=== PATIENT | female | born 1960 | race Caucasian/White ===

== ENCOUNTER → 2017-04-28 | Outpatient (CLI) | payer BC ==
[2017-04-28 17:58] LABS: ALT/SGPT 49 U/L (12-78); BLOOD UREA NITROGEN 10 mg/dl (7-18); BUN/CREATININE RATIO 12.9 (10-20); C-REACTIVE PROTEIN 1.98 mg/dl (0-0.29); CALCIUM 9.3 mg/dl (8.5-10.1); CARBON DIOXIDE 28 mmol/L (21-32); CHLORIDE 106 mmol/L (98-107); CHOLESTEROL 187 mg/dl (0-200); CREATININE 0.78 mg/dl (0.60-1.20); GLUCOSE 91 mg/dl (70-99); POTASSIUM 3.8 mmol/L (3.5-5.1); SODIUM 139 mmol/L (136-145); TRIGLYCERIDES 67 mg/dl (0-150); VERY LOW DENSITY LIPOPROT CALC 13 mg/dl
[2017-04-28 18:07] LABS: ALB/GLOB RATIO 0.7 (0.9-2); ALKALINE PHOSPHATASE 69 U/L (45-117); AST/SGOT 53 U/L (15-37); CHOLESTEROL/HDL RATIO 3.1; HDL CHOLESTEROL 60 mg/dl; LDL CHOLESTEROL CALCULATED 114 mg/dl; RHEUMATOID FACTOR < 10.0 U/mL (0-15)
== END | disposition home or self-care (01) ==
LOC: C.LABPBG 12:41
PROVIDERS: ATTEND Nurse Practitioner Adult Health
DX: R94.6 Abnormal results of thyroid function studies (principal); M19.90 Unspecified osteoarthritis, unspecified site; E11.9 Type 2 diabetes mellitus without complications

== ENCOUNTER → 2017-05-22 | Outpatient (CLI) | payer BC ==
[2017-05-23 08:13] LABS: ESTIMATED AVERAGE GLUCOSE 100 mg/dl; HA1C FLAG Normal (Normal)
[2017-06-02 13:24] LABS: ANTI-SS-A <1.0 NEG AI (<1.0 NEG); ANTI-SS-B <1.0 NEG AI (<1.0 NEG); DRVVT MIX INTERPRETAION Not Indicated; LAC PTT SCREEN 48 sec (<=40); MICROSOMAL AB 2 IU/ML (<9)
[2017-06-03 12:53] LABS: LUPUS ANTICOAGULANT** TC36573X Negative (Negative)
== END | disposition home or self-care (01) ==
LOC: C.LAB 12:33
PROVIDERS: ATTEND Family Medicine
DX: E11.9 Type 2 diabetes mellitus without complications (principal); R74.0 Nonspecific elevation of levels of transaminase and lactic acid dehydrogenase [LDH]; R76.8 Other specified abnormal immunological findings in serum; E55.9 Vitamin D deficiency, unspecified

== ENCOUNTER → 2017-10-20 | Outpatient (CLI) | payer BC ==
[2017-10-20 19:12] LABS: ALBUMIN 3.1 gm/dl (3.4-5.0); ALT/SGPT 75 U/L (12-78); AST/SGOT 231 U/L (15-37); BLOOD UREA NITROGEN 10 mg/dl (7-18); CALCIUM 9.4 mg/dl (8.5-10.1); CARBON DIOXIDE 28 mmol/L (21-32); CREATININE 0.75 mg/dl (0.60-1.20); GLUCOSE 96 mg/dl (70-99); SODIUM 136 mmol/L (136-145)
[2017-10-20 19:25] LABS: ALKALINE PHOSPHATASE 66 U/L (45-117); CHOLESTEROL 139 mg/dl (0-200); LDL CHOLESTEROL CALCULATED 82 mg/dl; TOTAL PROTEIN 7.9 gm/dl (6.4-8.2)
[2017-10-21 07:22] LABS: HEMOGLOBIN A1C 5.3 % (4.5-5.6)
== END | disposition home or self-care (01) ==
LOC: C.LABPBG 14:03
PROVIDERS: ATTEND Family Medicine
DX: E11.9 Type 2 diabetes mellitus without complications (principal); E78.5 Hyperlipidemia, unspecified

== ENCOUNTER → 2017-10-21 | Outpatient (CLI) | payer BC | END | disposition home or self-care (01) | LOC: C.LABSPEC 09:38 | PROVIDERS: ATTEND Family Medicine | DX: E11.9 Type 2 diabetes mellitus without complications (principal); E78.5 Hyperlipidemia, unspecified ==

== ENCOUNTER → 2017-11-23 | Outpatient (CLI) | payer BC | END | disposition home or self-care (01) | LOC: C.LABPBG 09:15 | PROVIDERS: ATTEND Family Medicine | DX: Z11.59 Encounter for screening for other viral diseases (principal) ==

== ENCOUNTER → 2017-11-27 | Outpatient (CLI) | payer BC ==
--- NOTE | 2017-11-27 08:27 | DIAGNOSTIC IMAGING REPORT ---
ABDOMEN LIMITED (US) HISTORY: Abnormal liver enzymes ELEVATED AST (SGOT). COMPARISON: None. FINDINGS: Pancreas: The pancreas demonstrates a normal echotexture. Liver: Unremarkable. Gallbladder: Contracted gallbladder with multiple gallstones. CBD: 4 mm Right kidney: No hydronephrosis. IMPRESSION: Contracted gallbladder with multiple gallstones. Normal caliber bile duct. The above report was generated using voice recognition software. It may contain grammatical, syntax or spelling errors. Electronically signed by: Brando Nieto M.D. 11/27/2017 8:26 AM Dictated Date/Time: 11/27/2017 8:24 AM
== END | disposition home or self-care (01) ==
LOC: C.ULTR 07:46
PROVIDERS: ATTEND Family Medicine
DX: R74.0 Nonspecific elevation of levels of transaminase and lactic acid dehydrogenase [LDH] (principal)

== ENCOUNTER → 2018-02-05 | Outpatient (CLI) | payer BC ==
[~2018-02-05] MED LIST: CHOL2000 PO; CLBPO15 TOP; GLC/500 PO; IBUP-1459 PO; nicotine patch
[2018-02-05 16:41] LABS: MEAN CORPUSCULAR HGB CONC 34.3 g/dl (32-36)
[2018-02-05 16:47] LABS: HEMATOCRIT 40.5 % (37-47); HEMOGLOBIN 13.9 g/dL (12.0-16.0); MEAN CELL VOLUME 96.7 fL (80-100); MEAN CORPUSCULAR HEMOGLOBIN 33.2 pg (25-34); RED CELL DISTRIBUTION WIDTH CV 15.1 % (11.5-14.5); RED CELL DISTRIBUTION WIDTH SD 53.2 fL (36.4-46.3); WHITE BLOOD COUNT 3.87 K/uL (4.8-10.8)
[2018-02-05 17:03] LABS: PLATELET COUNT 32 K/uL (130-400)
[2018-02-05 17:04] LABS: BASO % 0.3 %; BASO ABS # 0.01 K/uL (0-0.2); EOS % 2.3 %; EOS ABS # 0.09 K/uL (0-0.5); LYMPH % 34.9 %; LYMPH ABS # 1.35 K/uL (1.2-3.4); MONO ABS # 0.35 K/uL (0.11-0.59); NEUT % 53.5 %; NEUT ABS # 2.07 K/uL (1.4-6.5)
== END | disposition home or self-care (01) ==
LOC: C.LABPBG 11:42
PROVIDERS: ATTEND Surgery
DX: Z01.812 Encounter for preprocedural laboratory examination (principal)

== ENCOUNTER 2022-04-09 15:56 | Inpatient (IN) ==
[2022-04-09] MEDS ORDERED: SODIUM CHLORIDE 0.9% 250 ML IV PRN ×2 (17:43→22:00)
[2022-04-09] MEDS ORDERED: PANTOprazole 80 MG in DEXTROSE 5% 100 ML IV ONE (17:46)
[2022-04-09] MEDS ORDERED: PANTOPRAZOLE BOLUS/DRIP 1 EACH IV STA (17:46)
[2022-04-09] MEDS ORDERED: cefTRIAXone SODIUM 2,000 MG/70 ML BAG IV STA (17:46)
--- NOTE | 2022-04-09 17:49 | Emergency Department Note ---
Impression & Plan Liver cirrhosis secondary to nonalcoholic steatohepatitis (LOUIS), Upper GI bleed, Hypotension, Pancreatic cancer, SACHA (acute kidney injury), Leukopenia, Elevated troponin, Anasarca, Acute respiratory failure with hypoxia ED Provider Note NAME: KARYN GARZON AGE: 62 SEX: F : 1960 ARRIVES VIA: Ambulance INFORMANT: Patient ED PROVIDER(S): Mohsen Wong DO CHIEF COMPLAINT: swelling HPI: Patient is a 62-year-old female with a past medical history of Louis, positive JULIAN, thrombocytopenia, diabetes, and pancreatic cancer, portal venous thrombus on Lovenox, who presents to the ER for diffuse swelling throughout her entire body. She denies any headache or change in vision. No chest pain or shortness of breath. No nausea, vomiting, or diarrhea. She admits to black tarry stools for the past 24 to 48 hours. No dysuria, urgency, or frequency. No other exacerbating or remitting factors. She believes that everything deteriorated over the past 24 to 48 hours. She notes that she is a full code. ROS: See above HPI for pertinent positives & negatives. A total of 10 systems reviewed and were otherwise negative. PAST MEDICAL HISTORY:See Below PAST SURGICAL HISTORY:See Below FAMILY HISTORY:See Below SOCIAL HISTORY:See Below HOME MEDICATIONS:See Below ALLERGIES:See Below VITALS:See Below PHYSICAL EXAMINATION: GENERAL: Sitting up in bed, alert, ill-appearing, disheveled on 2 L nasal cannula with diffuse anasarca, jaundice with diffuse bruising EYE EXAM: Scleral icterus OROPHARYNX: Dry mucous membranes NECK: supple, no nuchal rigidity, no adenopathy, non-tender LUNGS: Diminished to bilateral bases. normal chest wall mechanics HEART: no murmurs, S1 normal and S2 normal ABDOMEN: abdomen soft, non-tender, normo-active bowel sounds, no masses, no rebound or guarding, with diffuse pitting edema RECTAL: Black stools heme positive UPPER EXTREMITIES: upper extremities are grossly normal. LOWER EXTREMITIES: Diffuse pitting edema bilaterally NEURO EXAM: Patient is awake alert oriented to person place time moving all extremities nonfocal MEDICAL DECISION MAKING: Patient is a 62-year-old female who was hypotensive tachycardic and borderline febrile as well as hypoxic that presents the ER for the above-stated complaint. She has a history of Louis and pancreatic cancer which is technically operable but due to cirrhosis/Louis she has nonoperable per review of the chart. She was undergoing radiation and follows with hematology oncology on Lovenox. IV was established blood work was obtained. Labs show pancytopenia with a hemoglobin of 8 down from 11 and a platelet count of 50 which actually has improved from previous. INR 2.3 and PTT is 51. This is discussed with Dr. Swan and she would not reverse the Lovenox as her last dose was last night with protamine at this time. VBG was obtained and showed a pH of 7.2 with a CO2 of 37. BMP with a sodium of 127 chloride at 93 and a creatinine 1.9 up from baseline of 1. Glucose was low at 59. She was given dextrose and glucose trended up to 76. T bili at 18 trending up from previous of 14. LFTs were unremarkable. Troponin of 33. Pro-Dm up at 4.1. Patient was given Protonix drip and bolus, octreotide drip and bolus, Rocephin and 2 units of PRBCs. She was ordered 2 units of FFP as well as platelets. Initially discussed with Dr. Salmeron from GI as well as the hospitalist service. They discussed with intensive care and recommended transfer. Consequently discussed with case [facility] and they were excepted but there is no bed available. Discussed this with both the patient and the . Offered to transfer to [facility] but they declined as it is too far. [place] does not work with her insurance per the case briefer. We discussed with [place] as well as [facility] and patient will be admitted to the ICU here awaiting transfer to [facility]. Patient was started on levo by the hospital service. Triage Nursing notes reviewed. Limited review of prior medical records performed Vital Signs: reviewed and remarkable for hypotension and tachycardia Differential diagnosis: Differential diagnosis includes etiologies such as diverticulitis, diverticulosis, AVM, coagulopathy, colitis, inflammatory bowel disease, malignancy, Jeane-Bernal tear, esophagitis, peptic ulcer disease, variceal bleed, gastritis, epistaxis, fissure, hemorrhoids, as well as others were entertained. ER treatment provided: See below Diagnostics interpreted by me: ECG: Sinus tachycardia rate of 110 Normal axis No PVCs Poor baseline QTC 443 Cardiac Monitoring: An order was placed for continuous cardiac monitoring. The monitor shows a rate of 115 with sinus rhythm. Laboratory studies: As stated above and show below. Imaging studies: CT abdomen pelvis showed diffuse anasarca but no acute pathology Portable AP upright 1 view the chest shows large pleural effusion Consultation(s): As described above discussed with [facility] director multiple sclerosis center, but likely not until tomorrow they will have a bed. Please see above for further consults as described Procedures: none Critical Care: I have personally spent 75 minutes of critical care time in the direct management of this patient. This includes bedside care, interpretation of diagnostic studies, and testing, discussion with consultants, patient, and family members, and other required patient management activities. This 75 minutes is in excess of all separately billable procedures. Past Med/Surg History Medical History Diabetes mellitus, type 2 Dyslipidemia Liver cirrhosis secondary to nonalcoholic steatohepatitis (LOUIS) following with [facility] and transplant clinic, undergoing transplant testing/appointments with plan to f/u with transplant clinic in next 4-6 months Osteoarthritis Pancreatic cancer (11/08/21) Positive JULIAN (antinuclear antibody) Thrombocytopenia Vitamin D deficiency Surgical History History of ankle surgery R ankle, 2012 History of cholecystectomy (03/24/18) 03/24/18: Grade 1 view, Pritchard#2, ETT#7.0, atraumatic x 1. No issues per anesthesia postop progress note. History of excision of pilonidal cyst History of liver biopsy w/ cholecystectomy 03/24/18: Grade 1 view, Pritchard#2, ETT#7.0, atraumatic x 1. No issues per anesthesia postop progress note. S/P ankle ligament repair b/l ankles S/P panniculectomy S/P tonsillectomy Family History Mother Bipolar disorder Hypertension Depression Father Coronary heart disease Myocardial infarction, Onset Age: 74 Diabetes Hypertension Grandfather (Maternal) Myocardial infarction, Onset Age: 58 Brother , Passed age 20 of MVA No problems noted. Brother No problems noted. Brother No problems noted. Brother No problems noted. Brother No problems noted. Sister No problems noted. Son No problems noted. 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 Feels Safe at Home: Yes caffeine: Yes during the past year weight has: remained stable Dental Care, Regularly: Yes Physical Activity Frequency: Daily Seatbelt Use: always Sunscreen Use: No Assistive Devices: Denture - Upper and Glasses Allergies Allergies Allergy/AdvReac Type Severity Reaction Status Date / Time No Known Drug Allergies Allergy Unknown Verified 04/09/22 20:20 Home Meds Home Medications Medication Instructions Recorded Confirmed blood-glucose meter ([employer]Touch #1 ea 04/26/19 02/17/22 Verio Meter) cholecalciferol (vitamin D3) 50 2,000 unit PO QAM 02/12/22 04/09/22 mcg (2,000 unit) tablet enoxaparin 100 mg/mL subcutaneous 100 mg subcut DAILY 02/17/22 04/09/22 syringe (Lovenox) Previous Rx's Medication Instructions Recorded lancets 30 gauge (OneTouch Delica #100 ea 01/04/21 Lancets) metformin 500 mg tablet 500 mg PO BID #180 tabs 05/13/21 blood sugar diagnostic ([employer]Touch #100 ea 02/17/22 Verio test strips) Results & Data (ED) Vital Signs Vital Signs - 24 hr 04/09/22 16:21 04/09/22 16:26 04/09/22 17:11 Temperature 37.4 C 37.4 C Temperature Source Oral Oral Pulse Rate 110 H Pulse Rate [Apical] 110 H Pulse Rhythm Regular Pulse Rhythm [Apical] Regular Pulse Strength Normal Pulse Strength [Apical] Normal Respiratory Rate 22 26 H Respiratory Effort / Characteristics Non-Labored Non-Labored Respiratory Depth Normal Respiratory Pattern Regular Regular Blood Pressure 71/55 L Blood Pressure [Left Arm] 89/62 L Blood Pressure Mean 60 Blood Pressure Mean [Left Arm] 71 Blood Pressure Position Lying Blood Pressure Position [Left Arm] Lying Pulse Oximetry 93 93 94 Oxygen Delivery Method Room Air Room Air Nasal Cannula Oxygen Flow Rate 94 Sepsis Recent Fever Within 48 Hours No Sepsis New/Unexplained Change in Mental Status No Sepsis Action Taken by Nursing Physician Notified 04/09/22 17:11 04/09/22 17:19 04/09/22 17:47 Temperature Temperature Source Pulse Rate 112 H Pulse Rate [Apical] 115 H Pulse Rhythm Pulse Rhythm [Apical] Regular Pulse Strength Pulse Strength [Apical] Normal Respiratory Rate 22 22 24 Respiratory Effort / Characteristics Non-Labored Spontaneous Labored Respiratory Depth Normal Respiratory Pattern Blood Pressure Blood Pressure [Left Arm] 82/51 L Blood Pressure Mean Blood Pressure Mean [Left Arm] 61 Blood Pressure Position Blood Pressure Position [Left Arm] Lying Pulse Oximetry 94 95 115 H Oxygen Delivery Method Nasal Cannula Nasal Cannula Nasal Cannula Oxygen Flow Rate 2 2 2 Sepsis Recent Fever Within 48 Hours Sepsis New/Unexplained Change in Mental Status Sepsis Action Taken by Nursing 04/09/22 18:10 04/09/22 18:25 04/09/22 18:25 Temperature 37.4 C 37.2 C 37.1 C Temperature Source Oral Oral Oral Pulse Rate 114 H 113 H 114 H Pulse Rate [Apical] Pulse Rhythm Regular Pulse Rhythm [Apical] Pulse Strength Normal Pulse Strength [Apical] Respiratory Rate 20 24 20 Respiratory Effort / Characteristics Respiratory Depth Respiratory Pattern Blood Pressure 80/54 L 89/41 L 89/41 L Blood Pressure [Left Arm] Blood Pressure Mean 62 57 57 Blood Pressure Mean [Left Arm] Blood Pressure Position Lying Blood Pressure Position [Left Arm] Pulse Oximetry 93 92 93 Oxygen Delivery Method Oxygen Flow Rate 2 2 Sepsis Recent Fever Within 48 Hours Sepsis New/Unexplained Change in Mental Status Sepsis Action Taken by Nursing 04/09/22 18:40 04/09/22 19:29 04/09/22 19:25 Temperature 37.6 C H 36.9 C 37.8 C H Temperature Source Oral Oral Oral Pulse Rate 114 H 113 H 114 H Pulse Rate [Apical] Pulse Rhythm Regular Pulse Rhythm [Apical] Pulse Strength Normal Pulse Strength [Apical] Respiratory Rate 25 H 22 22 Respiratory Effort / Characteristics Respiratory Depth Respiratory Pattern Blood Pressure 92/50 L 75/29 L 53/42 L Blood Pressure [Left Arm] Blood Pressure Mean 64 44 45 Blood Pressure Mean [Left Arm] Blood Pressure Position Lying Lying Blood Pressure Position [Left Arm] Pulse Oximetry 94 95 94 Oxygen Delivery Method Oxygen Flow Rate 4 4 Sepsis Recent Fever Within 48 Hours Sepsis New/Unexplained Change in Mental Status Sepsis Action Taken by Nursing 04/09/22 19:50 04/09/22 20:05 04/09/22 20:09 Temperature 37.8 C H 37.9 C H Temperature Source Oral Oral Pulse Rate 115 H 117 H Pulse Rate [Apical] Pulse Rhythm Regular Regular Pulse Rhythm [Apical] Pulse Strength Normal Normal Pulse Strength [Apical] Respiratory Rate 22 22 24 Respiratory Effort / Characteristics Spontaneous Respiratory Depth Respiratory Pattern Blood Pressure 91/72 L 95/67 L Blood Pressure [Left Arm] Blood Pressure Mean 78 76 Blood Pressure Mean [Left Arm] Blood Pressure Position Lying Lying Blood Pressure Position [Left Arm] Pulse Oximetry 96 94 94 Oxygen Delivery Method Nasal Cannula Oxygen Flow Rate 4 4 Sepsis Recent Fever Within 48 Hours Sepsis New/Unexplained Change in Mental Status Sepsis Action Taken by Nursing 04/09/22 20:19 04/09/22 20:35 04/09/22 20:55 Temperature 37.8 C H 37.8 C H Temperature Source Oral Oral Pulse Rate 120 H 118 H Pulse Rate [Apical] 120 H Pulse Rhythm Regular Regular Pulse Rhythm [Apical] Regular Pulse Strength Normal Normal Pulse Strength [Apical] Normal Respiratory Rate 24 24 24 Respiratory Effort / Characteristics Spontaneous Respiratory Depth Normal Respiratory Pattern Tachypnea Blood Pressure 97/81 L 100/71 Blood Pressure [Left Arm] 82/68 L Blood Pressure Mean 86 80 Blood Pressure Mean [Left Arm] 72 Blood Pressure Position Lying Lying Blood Pressure Position [Left Arm] Lying Pulse Oximetry 94 94 94 Oxygen Delivery Method Nasal Cannula Oxygen Flow Rate 4 4 4 Sepsis Recent Fever Within 48 Hours Sepsis New/Unexplained Change in Mental Status Sepsis Action Taken by Nursing 04/09/22 21:03 04/09/22 21:07 04/09/22 21:10 Temperature 37.1 C 37.1 C 37.1 C Temperature Source Oral Oral Oral Pulse Rate 119 H 117 H Pulse Rate [Apical] 118 H Pulse Rhythm Regular Regular Pulse Rhythm [Apical] Regular Pulse Strength Normal Normal Pulse Strength [Apical] Normal Respiratory Rate 24 24 24 Respiratory Effort / Characteristics Non-Labored Spontaneous Respiratory Depth Normal Respiratory Pattern Regular Blood Pressure 99/58 L 99/58 L Blood Pressure [Left Arm] 99/58 L Blood Pressure Mean 71 71 Blood Pressure Mean [Left Arm] 71 Blood Pressure Position Lying Lying Blood Pressure Position [Left Arm] Lying Pulse Oximetry 93 93 93 Oxygen Delivery Method Nasal Cannula Oxygen Flow Rate 4 4 Sepsis Recent Fever Within 48 Hours Sepsis New/Unexplained Change in Mental Status Sepsis Action Taken by Nursing 04/09/22 21:30 04/09/22 21:46 04/09/22 21:48 Temperature 37.1 C Temperature Source Oral Pulse Rate Pulse Rate [Apical] 116 H 117 H Pulse Rhythm Pulse Rhythm [Apical] Regular Pulse Strength Pulse Strength [Apical] Normal Respiratory Rate 24 24 24 Respiratory Effort / Characteristics Spontaneous Spontaneous Respiratory Depth Normal Respiratory Pattern Tachypnea Blood Pressure Blood Pressure [Left Arm] 100/40 L 82/58 L Blood Pressure Mean Blood Pressure Mean [Left Arm] 60 66 Blood Pressure Position Blood Pressure Position [Left Arm] Lying Lying Pulse Oximetry 93 93 92 Oxygen Delivery Method Nasal Cannula Nasal Cannula Nasal Cannula Oxygen Flow Rate 4 4 4 Sepsis Recent Fever Within 48 Hours Sepsis New/Unexplained Change in Mental Status Sepsis Action Taken by Nursing 04/09/22 22:00 04/09/22 22:15 Temperature Temperature Source Pulse Rate Pulse Rate [Apical] 115 H 115 H Pulse Rhythm Pulse Rhythm [Apical] Regular Regular Pulse Strength Pulse Strength [Apical] Normal Normal Respiratory Rate 26 H 22 Respiratory Effort / Characteristics Spontaneous Non-Labored Spontaneous Respiratory Depth Normal Normal Respiratory Pattern Tachypnea Regular Blood Pressure Blood Pressure [Left Arm] 79/47 L 77/50 L Blood Pressure Mean Blood Pressure Mean [Left Arm] 57 59 Blood Pressure Position Blood Pressure Position [Left Arm] Lying Lying Pulse Oximetry 92 92 Oxygen Delivery Method Nasal Cannula Nasal Cannula Oxygen Flow Rate 4 4 Sepsis Recent Fever Within 48 Hours Sepsis New/Unexplained Change in Mental Status Sepsis Action Taken by Nursing Laboratory Data Result diagrams: 04/09/22 16:05 04/09/22 16:05 Lab Results 04/09/22 04/09/22 04/09/22 Range/Units 16:05 16:05 16:05 WBC 1.97 L (4.8-10.8) K/ul RBC 2.26 L (3.93-5.22) M/uL Hgb 8.4 L (12.0-16.0) g/dl POC Hgb (12.0-16.0) g/dl Hct 26.4 L (34.1-44.9) % POC Hct (37-47) % MCV 116.8 H (80.0-100.0) fL MCH 37.2 H (25.0-34.0) pg MCHC 31.8 L (32.0-36.0) g/dL RDW Std Deviation 74.5 H (36.4-46.3) fL RDW Coeff of Mitesh 18.0 H (11.5-14.5) % Plt Count 50 L (130-400) K/uL MPV 12.8 H (9.4-12.3) fL Absolute Nucleated RBC 0.52 H (0-0) K/uL Nucleated RBC % (auto) 26.4 % Neutrophils % (Manual) 66 % Lymphocytes % (Manual) 7 % Monocytes % (Manual) 8 % Eosinophils % (Manual) 1 % Metamyelocytes % (Man) 15 % Myelocytes % (Man) 3 % Neutrophils # (Manual) 1.30 L (1.4-6.5) K/uL Total Absolute Neuts 1.30 L (1.4-6.5) K/uL Lymphocytes # (Manual) 0.14 L (1.2-3.4) K/uL Total Abs Lymphocytes 0.14 L (1.2-3.4) K/uL Monocytes # (Manual) 0.16 L (0.24-0.82) K/uL Eosinophils # (Manual) 0.02 (0-0.50) K/uL Metamyelocytes # (Man) 0.30 H (0-0) K/uL Myelocytes # (Manual) 0.06 H (0-0) K/uL Platelet Estimate Decreased L (Normal) Macrocytosis Present Echinocytes 1+ Acanthocytes (Spur) 2+ PT 23.4 H (9.0-12.0) Seconds INR 2.3 H (0.9-1.1) APTT 51.3 H* (21.0-31.0) Seconds PTT Ratio 1.9 VBG pH (7.36-7.41) VBG pCO2 (38-50) mmHg VBG pO2 mmHg VBG HCO3 mmol/L VBG O2 Saturation % VBG Base Excess mEq/L POC Sodium (135-144) mmol/L Sodium 126 L (136-145) mmol/L POC Potassium (3.3-5.0) mmol/L Potassium 4.1 (3.5-5.1) mmol/L POC Chloride (101-112) mmol/L Chloride 93 L (98-107) mmol/L Carbon Dioxide 14 L (21-32) mmol/L POC Total CO2 (24-31) mmol/L Anion Gap 19 H (3-11) POC Anion Gap (16-25) mmol/L POC BUN (7-18) mg/dl BUN 31 H (6-23) mg/dl Creatinine 1.91 H (0.6-1.2) mg/dl POC Creatinine (0.6-1.3) mg/dl Est Cr Clr Drug Dosing 37.9 ml/min Est GFR ( Amer) 31.5 ml/min Est GFR (Non-Af Amer) 27.2 ml/min BUN/Creatinine Ratio 16.2 (10-20) Glucose 76 (70-99(Fasting)) mg/dl POC Glucose (70-99) mg/dl POC Glucose (other) (70-99) mg/dl Lactate Calcium 8.4 L (8.5-10.1) mg/dl POC Ioniz Calcium Memo (1.12-1.32) mmol/l Magnesium 1.8 (1.7-2.4) mg/dl Total Bilirubin 18.2 H (0.2-1.0) mg/dl AST 76 H (13-39) U/L ALT 39 (7-52) U/L Alkaline Phosphatase 69 (34-104) U/L Ammonia Troponin I High Sens (0-14) pg/ml Total Protein 5.2 L (6.0-8.3) gm/dl Albumin 2.0 L (3.4-5.0) gm/dl Globulin 3.2 (2.5-4.0) gm/dl Albumin/Globulin Ratio 0.6 L (0.9-2) Procalcitonin (0-0.5) ng/ml SARS-CoV-2, RNA, NAAT (NEGATIVE) Blood Type Antibody Screen Crossmatch 04/09/22 04/09/22 04/09/22 Range/Units 18:05 18:08 18:08 WBC (4.8-10.8) K/ul RBC (3.93-5.22) M/uL Hgb (12.0-16.0) g/dl POC Hgb 7.8 L (12.0-16.0) g/dl Hct (34.1-44.9) % POC Hct 23 L (37-47) % MCV (80.0-100.0) fL MCH (25.0-34.0) pg MCHC (32.0-36.0) g/dL RDW Std Deviation (36.4-46.3) fL RDW Coeff of Mitesh (11.5-14.5) % Plt Count (130-400) K/uL MPV (9.4-12.3) fL Absolute Nucleated RBC (0-0) K/uL Nucleated RBC % (auto) % Neutrophils % (Manual) % Lymphocytes % (Manual) % Monocytes % (Manual) % Eosinophils % (Manual) % Metamyelocytes % (Man) % Myelocytes % (Man) % Neutrophils # (Manual) (1.4-6.5) K/uL Total Absolute Neuts (1.4-6.5) K/uL Lymphocytes # (Manual) (1.2-3.4) K/uL Total Abs Lymphocytes (1.2-3.4) K/uL Monocytes # (Manual) (0.24-0.82) K/uL Eosinophils # (Manual) (0-0.50) K/uL Metamyelocytes # (Man) (0-0) K/uL Myelocytes # (Manual) (0-0) K/uL Platelet Estimate (Normal) Macrocytosis Echinocytes Acanthocytes (Spur) PT (9.0-12.0) Seconds INR (0.9-1.1) APTT (21.0-31.0) Seconds PTT Ratio VBG pH (7.36-7.41) VBG pCO2 (38-50) mmHg VBG pO2 mmHg VBG HCO3 mmol/L VBG O2 Saturation % VBG Base Excess mEq/L POC Sodium 131 L (135-144) mmol/L Sodium (136-145) mmol/L POC Potassium 3.7 (3.3-5.0) mmol/L Potassium (3.5-5.1) mmol/L POC Chloride 98 L (101-112) mmol/L Chloride (98-107) mmol/L Carbon Dioxide (21-32) mmol/L POC Total CO2 14 L (24-31) mmol/L Anion Gap (3-11) POC Anion Gap 24.0 (16-25) mmol/L POC BUN 23 H (7-18) mg/dl BUN (6-23) mg/dl Creatinine (0.6-1.2) mg/dl POC Creatinine 1.6 H (0.6-1.3) mg/dl Est Cr Clr Drug Dosing ml/min Est GFR ( Amer) ml/min Est GFR (Non-Af Amer) ml/min BUN/Creatinine Ratio (10-20) Glucose (70-99(Fasting)) mg/dl POC Glucose (70-99) mg/dl POC Glucose (other) 59 L* (70-99) mg/dl Lactate Cancelled Calcium (8.5-10.1) mg/dl POC Ioniz Calcium Memo 1.01 L (1.12-1.32) mmol/l Magnesium (1.7-2.4) mg/dl Total Bilirubin (0.2-1.0) mg/dl AST (13-39) U/L ALT (7-52) U/L Alkaline Phosphatase (34-104) U/L Ammonia Troponin I High Sens (0-14) pg/ml Total Protein (6.0-8.3) gm/dl Albumin (3.4-5.0) gm/dl Globulin (2.5-4.0) gm/dl Albumin/Globulin Ratio (0.9-2) Procalcitonin (0-0.5) ng/ml SARS-CoV-2, RNA, NAAT (NEGATIVE) Blood Type A Negative Antibody Screen NEGATIVE Crossmatch See Detail 04/09/22 04/09/22 04/09/22 Range/Units 18:08 18:08 18:18 WBC (4.8-10.8) K/ul RBC (3.93-5.22) M/uL Hgb (12.0-16.0) g/dl POC Hgb (12.0-16.0) g/dl Hct (34.1-44.9) % POC Hct (37-47) % MCV (80.0-100.0) fL MCH (25.0-34.0) pg MCHC (32.0-36.0) g/dL RDW Std Deviation (36.4-46.3) fL RDW Coeff of Mitesh (11.5-14.5) % Plt Count (130-400) K/uL MPV (9.4-12.3) fL Absolute Nucleated RBC (0-0) K/uL Nucleated RBC % (auto) % Neutrophils % (Manual) % Lymphocytes % (Manual) % Monocytes % (Manual) % Eosinophils % (Manual) % Metamyelocytes % (Man) % Myelocytes % (Man) % Neutrophils # (Manual) (1.4-6.5) K/uL Total Absolute Neuts (1.4-6.5) K/uL Lymphocytes # (Manual) (1.2-3.4) K/uL Total Abs Lymphocytes (1.2-3.4) K/uL Monocytes # (Manual) (0.24-0.82) K/uL Eosinophils # (Manual) (0-0.50) K/uL Metamyelocytes # (Man) (0-0) K/uL Myelocytes # (Manual) (0-0) K/uL Platelet Estimate (Normal) Macrocytosis Echinocytes Acanthocytes (Spur) PT 23.9 H (9.0-12.0) Seconds INR 2.3 H (0.9-1.1) APTT (21.0-31.0) Seconds PTT Ratio VBG pH (7.36-7.41) VBG pCO2 (38-50) mmHg VBG pO2 mmHg VBG HCO3 mmol/L VBG O2 Saturation % VBG Base Excess mEq/L POC Sodium (135-144) mmol/L Sodium (136-145) mmol/L POC Potassium (3.3-5.0) mmol/L Potassium (3.5-5.1) mmol/L POC Chloride (101-112) mmol/L Chloride (98-107) mmol/L Carbon Dioxide (21-32) mmol/L POC Total CO2 (24-31) mmol/L Anion Gap (3-11) POC Anion Gap (16-25) mmol/L POC BUN (7-18) mg/dl BUN (6-23) mg/dl Creatinine (0.6-1.2) mg/dl POC Creatinine (0.6-1.3) mg/dl Est Cr Clr Drug Dosing ml/min Est GFR ( Amer) ml/min Est GFR (Non-Af Amer) ml/min BUN/Creatinine Ratio (10-20) Glucose (70-99(Fasting)) mg/dl POC Glucose (70-99) mg/dl POC Glucose (other) (70-99) mg/dl Lactate Calcium (8.5-10.1) mg/dl POC Ioniz Calcium Memo (1.12-1.32) mmol/l Magnesium (1.7-2.4) mg/dl Total Bilirubin (0.2-1.0) mg/dl AST (13-39) U/L ALT (7-52) U/L Alkaline Phosphatase (34-104) U/L Ammonia Troponin I High Sens 33.8 H (0-14) pg/ml Total Protein (6.0-8.3) gm/dl Albumin (3.4-5.0) gm/dl Globulin (2.5-4.0) gm/dl Albumin/Globulin Ratio (0.9-2) Procalcitonin 4.18 H (0-0.5) ng/ml SARS-CoV-2, RNA, NAAT (NEGATIVE) Blood Type Antibody Screen Crossmatch 04/09/22 04/09/22 04/09/22 Range/Units 18:20 19:09 20:15 WBC (4.8-10.8) K/ul RBC (3.93-5.22) M/uL Hgb (12.0-16.0) g/dl POC Hgb (12.0-16.0) g/dl Hct (34.1-44.9) % POC Hct (37-47) % MCV (80.0-100.0) fL MCH (25.0-34.0) pg MCHC (32.0-36.0) g/dL RDW Std Deviation (36.4-46.3) fL RDW Coeff of Mitesh (11.5-14.5) % Plt Count (130-400) K/uL MPV (9.4-12.3) fL Absolute Nucleated RBC (0-0) K/uL Nucleated RBC % (auto) % Neutrophils % (Manual) % Lymphocytes % (Manual) % Monocytes % (Manual) % Eosinophils % (Manual) % Metamyelocytes % (Man) % Myelocytes % (Man) % Neutrophils # (Manual) (1.4-6.5) K/uL Total Absolute Neuts (1.4-6.5) K/uL Lymphocytes # (Manual) (1.2-3.4) K/uL Total Abs Lymphocytes (1.2-3.4) K/uL Monocytes # (Manual) (0.24-0.82) K/uL Eosinophils # (Manual) (0-0.50) K/uL Metamyelocytes # (Man) (0-0) K/uL Myelocytes # (Manual) (0-0) K/uL Platelet Estimate (Normal) Macrocytosis Echinocytes Acanthocytes (Spur) PT (9.0-12.0) Seconds INR (0.9-1.1) APTT (21.0-31.0) Seconds PTT Ratio VBG pH (7.36-7.41) VBG pCO2 (38-50) mmHg VBG pO2 mmHg VBG HCO3 mmol/L VBG O2 Saturation % VBG Base Excess mEq/L POC Sodium (135-144) mmol/L Sodium (136-145) mmol/L POC Potassium (3.3-5.0) mmol/L Potassium (3.5-5.1) mmol/L POC Chloride (101-112) mmol/L Chloride (98-107) mmol/L Carbon Dioxide (21-32) mmol/L POC Total CO2 (24-31) mmol/L Anion Gap (3-11) POC Anion Gap (16-25) mmol/L POC BUN (7-18) mg/dl BUN (6-23) mg/dl Creatinine (0.6-1.2) mg/dl POC Creatinine (0.6-1.3) mg/dl Est Cr Clr Drug Dosing ml/min Est GFR ( Amer) ml/min Est GFR (Non-Af Amer) ml/min BUN/Creatinine Ratio (10-20) Glucose (70-99(Fasting)) mg/dl POC Glucose 70 76 (70-99) mg/dl POC Glucose (other) (70-99) mg/dl Lactate Calcium (8.5-10.1) mg/dl POC Ioniz Calcium Memo (1.12-1.32) mmol/l Magnesium (1.7-2.4) mg/dl Total Bilirubin (0.2-1.0) mg/dl AST (13-39) U/L ALT (7-52) U/L Alkaline Phosphatase (34-104) U/L Ammonia Troponin I High Sens (0-14) pg/ml Total Protein (6.0-8.3) gm/dl Albumin (3.4-5.0) gm/dl Globulin (2.5-4.0) gm/dl Albumin/Globulin Ratio (0.9-2) Procalcitonin (0-0.5) ng/ml SARS-CoV-2, RNA, NAAT NEGATIVE (NEGATIVE) Blood Type Antibody Screen Crossmatch 04/09/22 04/09/22 Range/Units 21:23 21:23 WBC (4.8-10.8) K/ul RBC (3.93-5.22) M/uL Hgb (12.0-16.0) g/dl POC Hgb (12.0-16.0) g/dl Hct (34.1-44.9) % POC Hct (37-47) % MCV (80.0-100.0) fL MCH (25.0-34.0) pg MCHC (32.0-36.0) g/dL RDW Std Deviation (36.4-46.3) fL RDW Coeff of Mitesh (11.5-14.5) % Plt Count (130-400) K/uL MPV (9.4-12.3) fL Absolute Nucleated RBC (0-0) K/uL Nucleated RBC % (auto) % Neutrophils % (Manual) % Lymphocytes % (Manual) % Monocytes % (Manual) % Eosinophils % (Manual) % Metamyelocytes % (Man) % Myelocytes % (Man) % Neutrophils # (Manual) (1.4-6.5) K/uL Total Absolute Neuts (1.4-6.5) K/uL Lymphocytes # (Manual) (1.2-3.4) K/uL Total Abs Lymphocytes (1.2-3.4) K/uL Monocytes # (Manual) (0.24-0.82) K/uL Eosinophils # (Manual) (0-0.50) K/uL Metamyelocytes # (Man) (0-0) K/uL Myelocytes # (Manual) (0-0) K/uL Platelet Estimate (Normal) Macrocytosis Echinocytes Acanthocytes (Spur) PT (9.0-12.0) Seconds INR (0.9-1.1) APTT (21.0-31.0) Seconds PTT Ratio VBG pH 7.21 L (7.36-7.41) VBG pCO2 37 L (38-50) mmHg VBG pO2 58 mmHg VBG HCO3 15 mmol/L VBG O2 Saturation 85.4 % VBG Base Excess -12.3 mEq/L POC Sodium (135-144) mmol/L Sodium (136-145) mmol/L POC Potassium (3.3-5.0) mmol/L Potassium (3.5-5.1) mmol/L POC Chloride (101-112) mmol/L Chloride (98-107) mmol/L Carbon Dioxide (21-32) mmol/L POC Total CO2 (24-31) mmol/L Anion Gap (3-11) POC Anion Gap (16-25) mmol/L POC BUN (7-18) mg/dl BUN (6-23) mg/dl Creatinine (0.6-1.2) mg/dl POC Creatinine (0.6-1.3) mg/dl Est Cr Clr Drug Dosing ml/min Est GFR ( Amer) ml/min Est GFR (Non-Af Amer) ml/min BUN/Creatinine Ratio (10-20) Glucose (70-99(Fasting)) mg/dl POC Glucose (70-99) mg/dl POC Glucose (other) (70-99) mg/dl Lactate Calcium (8.5-10.1) mg/dl POC Ioniz Calcium Memo (1.12-1.32) mmol/l Magnesium (1.7-2.4) mg/dl Total Bilirubin (0.2-1.0) mg/dl AST (13-39) U/L ALT (7-52) U/L Alkaline Phosphatase (34-104) U/L Ammonia Cancelled Troponin I High Sens (0-14) pg/ml Total Protein (6.0-8.3) gm/dl Albumin (3.4-5.0) gm/dl Globulin (2.5-4.0) gm/dl Albumin/Globulin Ratio (0.9-2) Procalcitonin (0-0.5) ng/ml SARS-CoV-2, RNA, NAAT (NEGATIVE) Blood Type Antibody Screen Crossmatch Administered Medications Pantoprazole Sodium 40 mg/ (Dextrose) 100 mls @ 20 mls/hr IV Q5H [facility] Stop: 05/09/22 18:14 Last Admin: 04/09/22 18:14 Dose: 8 mg/hr, 20 mls/hr Documented By: MADAN Norepinephrine Bitartrate (Levophed/D5w) 4 mg in 250 mls @ 21.131 mls/hr IV .[id number] DELANO; Protocol Stop: 05/09/22 19:29 Last Titration: 04/09/22 22:04 Dose: 0.25 mcg/kg/min, 105.7 mls/hr Documented By: Titration: 04/09/22 20:21 Dose: 0.2 mcg/kg/min, 84.5 mls/hr Documented By: Titration: 04/09/22 20:04 Dose: 0.15 mcg/kg/min, 63.4 mls/hr Documented By: Titration: 04/09/22 19:57 Dose: 0.1 mcg/kg/min, 42.3 mls/hr Documented By: Admin: 04/09/22 19:43 Dose: 0.05 mcg/kg/min, 21.1 mls/hr Documented By: TERRA Co-signed By: CORINNE Octreotide Acetate 500 mcg/ (Dextrose) 100.5 mls @ 10.05 mls/hr IV .Q10H DELANO Stop: 05/09/22 20:29 Last Admin: 04/09/22 21:27 Dose: 50 mcg/hr, 10.1 mls/hr Documented By: TERRA Discontinued Medications Acetaminophen (Acetaminophen 325 Mg Tab) 650 mg PO NOW STA Stop: 04/09/22 20:38 Last Admin: 04/09/22 20:43 Dose: 650 mg Documented By: TERRA Dextrose (Dextrose 50% 50 Ml Syringe) 25 ml IV NOW ONE Stop: 04/09/22 18:44 Last Admin: 04/09/22 19:16 Dose: 25 ml Documented By: TERRA Furosemide (Furosemide 40 Mg/4 Ml Vial) 40 mg IV NOW STA Stop: 04/09/22 18:48 Last Admin: 04/09/22 19:21 Dose: Not Given Documented By: TERRA Ceftriaxone Sodium (Rocephin) 2,000 mg in 70 mls @ 140 mls/hr IV NOW STA Stop: 04/09/22 18:15 Last Infusion: 04/09/22 22:13 Dose: 0 mls/hr Documented By: Admin: 04/09/22 21:33 Dose: 140 mls/hr Documented By: TERRA Pantoprazole Sodium 80 mg/ (Dextrose) 120 mls @ 400 mls/hr IV NOW ONE Stop: 04/09/22 18:03 Last Admin: 04/09/22 18:14 Dose: 400 mls/hr Documented By: MADAN Octreotide Acetate 50 mcg/ (Syringe) 10 mls @ 3 mls/min IV ONE STA Stop: 04/09/22 18:27 Last Admin: 04/09/22 21:39 Dose: Not Given Documented By: TERRA Albumin Human (Albumin 25% 100 Ml) 25 gm in 100 mls @ 50 mls/hr IV ONE ONE Stop: 04/09/22 21:21 Last Admin: 04/09/22 22:09 Dose: Not Given Documented By: TERRA Octreotide Acetate 50 mcg/ (Syringe) 10 mls @ 3 mls/min IV ONE STA Stop: 04/09/22 20:33 Last Admin: 04/09/22 21:23 Dose: 3 mls/min Documented By: TERRA Imaging Data Radiologist's Impression: Chest X-Ray 04/09/22 17:43 XR chest 1V portable HISTORY: SEPSIS COMPARISON: Chest CT 02/12/2022. FINDINGS: There are low lung volumes. No pneumothorax. The heart is mildly enlarged. There is diffuse interstitial/vascular thickening consistent with mild pulmonary edema. There is a small right pleural effusion. Right basilar densities are noted. IMPRESSION: 1. Cardiomegaly with mild interstitial pulmonary edema and a small right pleural effusion. 2. Right basilar densities are nonspecific but favor atelectasis from the pleural effusion. A pneumonia could also have a similar appearance. ACT 112: Negative or not required by law. Electronically signed by: Ferdinand Reardon M.D. 04/09/2022 6:49 PM Abdomen/Pelvis CT 04/09/22 18:[address] WITHOUT CONTRAST CT DOSE: 1642.37 mGy.cm HISTORY: LOUIS with cirrhosis now jaundice known pancreatic cancer. TECHNIQUE: Multiaxial CT images of the abdomen and pelvis were performed without contrast. A dose lowering technique was utilized adhering to the principles of ALARA. COMPARISON STUDY: Abdomen and pelvis CT 02/12/2022. FINDINGS: Interval development of a moderate right pleural effusion. A few prominent right cardiophrenic lymph nodes remain unchanged. Right lower lobe basilar densities favor atelectasis from the pleural effusion. The left lung base is clear. No pneumoperitoneum. No pneumatosis. No fractures within the visualized osseous structures. Skin thickening and severe body wall edema has progressed. The heart is normal in size. Redemonstration of the cirrhotic liver and splenomegaly. Prior cholecystectomy. The unenhanced pancreas and adrenal glands are unremarkable. No renal or ureteral stones. No hydronephrosis. Large upper abdominal varicosities persists. There are additional markers adjacent to the pancreatic tail. Redemonstration of the 6 cm heterogeneous lobular focus within/adjacent to the pancreatic tail. This is better appreciated on the prior CT examination. Normal caliber abdominal aorta. The bladder is decompressed by the ascites. There is a moderate amount of ascites, unchanged. The uterus and adnexa are unremarkable. Suboptimal evaluation for bowel pathology due to the lack of intravenous and oral contrast. No dilated loops of bowel to suggest an obstruction. The small bowel is normal in course and caliber. Mild submucosal edema/thickening within the ascending colon, transverse colon, and descending colon. This could represent a portal colopathy given the associated cirrhosis or a nonspecific colitis. A few colonic diverticula. No evidence for acute diverticulitis. IMPRESSION: 1. Interval progression of the severe body wall edema/anasarca. 2. Interval development of a moderate right pleural effusion. 3. Moderate ascites persists. 4. No evidence for bowel obstruction. 5. Cirrhosis with splenomegaly and multiple upper abdominal varicosities. 6. Mild submucosal edema/thickening within the ascending colon, transverse colon, and descending colon. This could represent a portal colopathy given the associated cirrhosis or a nonspecific colitis. ACT 112: Negative or not required by law. Electronically signed by: Ferdinand Reardon M.D. 04/09/2022 7:07 PM Discharge Plan Visit Data Chief Complaint: Swelling/Edema to Extremity Stated Complaint: fluid retention ED Provider: Mohsen Wong Discharge Problem: Liver cirrhosis secondary to nonalcoholic steatohepatitis (LOUIS), Upper GI bleed, Hypotension, Pancreatic cancer, SACHA (acute kidney injury), Leukopenia, Elevated troponin, Anasarca, Acute respiratory failure with hypoxia Forms Stand Alone Forms: [facility] [employer] Prescriptions Prescriptions: No Action metformin 500 mg tablet 500 mg PO BID Qty: 180 1RF (DME) blood-glucose meter [OneTouch Verio Meter] misc See Dose Instructions .ROUTE .MEDSUPPLY Qty: 1 Rx Instructions: As directed (DME) lancets [OneTouch Delica Lancets] 30 gauge misc See Dose Instructions .ROUTE .MEDSUPPLY Qty: 100 0RF Dose Instruction: As directed Rx Instructions: test once daily enoxaparin [Lovenox] 100 mg/mL syringe 100 mg subcut DAILY (DME) OneTouch Verio test strips Strip See Dose Instructions .ROUTE .MEDSUPPLY Qty: 100 5RF Dose Instruction: As directed Rx Instructions: test once daily cholecalciferol (vitamin D3) 50 mcg (2,000 unit) tablet 2,000 unit PO QAM Referrals Referrals: Tiffany Anderson DO [Primary Care Provider] -
[2022-04-09 18:12] LABS: Albumin Globulin Ratio 0.6 (0.9-2); BUN Creatinine Ratio 16.2 (10-20); Bilirubin,Total 18.2 mg/dl (0.2-1.0); Calcium 8.4 mg/dl (8.5-10.1); Creatinine Clr Calc Pharmacy 37.9 ml/min; Est GFR (African American) 31.5 ml/min; Est GFR (Non-African American) 27.2 ml/min; Globulin 3.2 gm/dl (2.5-4.0); Magnesium 1.8 mg/dl (1.7-2.4); Potassium 4.1 mmol/L (3.5-5.1); Total Protein 5.2 gm/dl (6.0-8.3)
[2022-04-09] MEDS: PANTOprazole 40 MG in DEXTROSE 5% 100 ML IV SCH (18:14)
[2022-04-09 18:19] LABS: iSTAT Creatinine 1.6 mg/dl (0.6-1.3); iSTAT Hemoglobin 7.8 g/dl (12.0-16.0); iSTAT Ionized Calcium 1.01 mmol/l (1.12-1.32); iSTAT Potassium 3.7 mmol/L (3.3-5.0)
[2022-04-09 18:21] LABS: ALC (manual) 0.14 K/uL (1.2-3.4); Acanthocytes 2+; Echinocytes 1+; Eosinophils # (manual) 0.02 K/uL (0-0.50); Eosinophils % (manual) 1 %; Hematocrit (blood only) 26.4 % (34.1-44.9); Hemoglobin 8.4 g/dl (12.0-16.0); Lymphocytes # (manual) 0.14 K/uL (1.2-3.4); Lymphocytes % (manual) 7 %; Macrocytosis Present; Mean Corpuscular Hemoglobin 37.2 pg (25.0-34.0); Mean Corpuscular Hgb Conc 31.8 g/dL (32.0-36.0); Mean Corpuscular Volume 116.8 fL (80.0-100.0); Mean Platelet Volume 12.8 fL (9.4-12.3); Metamyelocytes % (manual) 15 %; Monocytes # (manual) 0.16 K/uL (0.24-0.82); Monocytes % (manual) 8 %; Myelocytes # (manual) 0.06 K/uL (0-0); Myelocytes % (manual) 3 %; Neutrophils % (manual) 66 %; Nucleated RBC # (auto) 0.52 K/uL (0-0); Nucleated RBC % (auto) 26.4 %; Platelet Count 50 K/uL (130-400); Platelet Estimate Decreased (Normal); RDW Standard Deviation 74.5 fL (36.4-46.3); Red Blood Count 2.26 M/uL (3.93-5.22); White Blood Count 1.97 K/ul (4.8-10.8)
[2022-04-09] MEDS ORDERED: STAT IV STA ×2 (18:24→20:30)
[2022-04-09] MEDS ORDERED: OCTREOTIDE ACETATE 50 MCG in SYRINGE 9.5 ML IV STA ×2 (18:24→20:30)
[2022-04-09 18:28] LABS: INR 2.3 (0.9-1.1); Partial Thromboplastin Ratio 1.9; Prothrombin Time 23.4 Seconds (9.0-12.0)
[2022-04-09] MEDS ORDERED: OCTREOTIDE ACETATE 500 MCG in DEXTROSE 5% 100 ML IV SCH (18:30)
[2022-04-09] MEDS ORDERED: DEXTROSE 50% 50 ML SYRINGE IV ONE (18:43)
[2022-04-09] MEDS ORDERED: FUROSEMIDE 40 MG/4 ML VIAL IV STA (18:47)
--- NOTE | 2022-04-09 18:50 | XRay Report ---
XR chest 1V portable HISTORY: SEPSIS COMPARISON: Chest CT 02/12/2022. FINDINGS: There are low lung volumes. No pneumothorax. The heart is mildly enlarged. There is diffuse interstitial/vascular thickening consistent with mild pulmonary edema. There is a small right pleura l effusion. Right basilar densities are noted. IMPRESSION: 1. Cardiomegaly with mild interstitial pulmonary edema and a small right pleural effusion. 2. Right basilar densities are nonspecific but favor atelectasis from the pleural effusion. A pneumon ia could also have a similar appearance. ACT 112: Negative or not required by law. Electronically signed by: Ferdinand Reardon M.D. 04/09/2022 6:49 PM
[2022-04-09 18:56] LABS: Partial Thromboplastin Time 51.3 Seconds (21.0-31.0)
--- NOTE | 2022-04-09 19:10 | CT Scan Report ---
ABDOMEN AND PELVIS CT WITHOUT CONTRAST CT DOSE: 1642.37 mGy.cm HISTORY: [place]ON with cirrhosis now jaundice known pancreatic cancer. TECHNIQUE: Multiaxial CT images of the abdomen and pelvis were performed without contrast. A dose lo wering technique was utilized adhering to the principles of ALARA. COMPARISON STUDY: Abdomen and pelvis CT 02/12/2022. FINDINGS: Interval development of a moderate right pleural effusion. A few prominent right cardiophre glenna lymph nodes remain unchanged. Right lower lobe basilar densities favor atelectasis from the pleur al effusion. The left lung base is clear. No pneumoperitoneum. No pneumatosis. No fractures within th e visualized osseous structures. Skin thickening and severe body wall edema has progressed. The heart is normal in size. Redemonstration of the cirrhotic liver and splenomegaly. Prior cholecystectomy. T he unenhanced pancreas and adrenal glands are unremarkable. No renal or ureteral stones. No hydroneph rosis. Large upper abdominal varicosities persists. There are additional markers adjacent to the panc reatic tail. Redemonstration of the 6 cm heterogeneous lobular focus within/adjacent to the pancreati c tail. This is better appreciated on the prior CT examination. Normal caliber abdominal aorta. The b ladder is decompressed by the ascites. There is a moderate amount of ascites, unchanged. The uterus a nd adnexa are unremarkable. Suboptimal evaluation for bowel pathology due to the lack of intravenous and oral contrast. No dilated loops of bowel to suggest an obstruction. The small bowel is normal in course and caliber. Mild submucosal edema/thickening within the ascending colon, transverse colon, an d descending colon. This could represent a portal colopathy given the associated cirrhosis or a nonsp ecific colitis. A few colonic diverticula. No evidence for acute diverticulitis. IMPRESSION: 1. Interval progression of the severe body wall edema/anasarca. 2. Interval development of a moderate right pleural effusion. 3. Moderate ascites persists. 4. No evidence for bowel obstruction. 5. Cirrhosis with splenomegaly and multiple upper abdominal varicosities. 6. Mild submucosal edema/thickening within the ascending colon, transverse colon, and descending colo n. This could represent a portal colopathy given the associated cirrhosis or a nonspecific colitis. ACT 112: Negative or not required by law. Electronically signed by: Ferdinand Reardon M.D. 04/09/2022 7:07 PM
[2022-04-09] MEDS ORDERED: ALBUMIN 25% 100 mL 25 GM/100 ML VIAL IV ONE (19:22)
[2022-04-09 19:24] LABS: INR 2.3 (0.9-1.1); Prothrombin Time 23.9 Seconds (9.0-12.0)
[2022-04-09] MEDS ORDERED: STAT IV Infusion **Titration per Protocol STA ×2 (19:26→22:16)
[2022-04-09] MEDS: NOREPINEPHRINE/D5W 4 MG/250 ML PLCT IV SCH ×2 (19:43→22:35)
--- NOTE | 2022-04-09 19:53 | History & Physical Report ---
Date of Service April 09, 2022 History of Present Illness Chief Complaint: upper GI bleed Primary Care Provider: Tiffany Anderson DO [place] Anthony is a 62yo female with PMHx significant for pancreatic adenocar cinoma (diagnosed in early 2021, started RTx with Dr. Denise in 01/2022), pulmonary nodule (8mm, per CT in 01/2022)JOHNSON, liver cirrhosis with ascites (had paracentesis last week with 5L fluid removed), thrombocytopenia, portal vein thrombosis (on Lovenox), T2DM (A1c 7.0 in 01/2022), and dyslipidemia who presented to [facility] ED on 04/09/2022 for worsening melanotic stools x 2-3 days as well as generalized weakness for 24 hours. Patient reports 4-5 loose melanotic stools over last several days and then says she cannot "stay on her feet" over last 24 hours due to significant generalized weakness/fatigue. Denies N/V or hematemesis. Also reports worsening generalized edema for 2 months, particularly over last 1- 2 weeks. She reportedly had a therapeutic paracentesis with extraction of 5L fluid last week but has nonetheless had progressive generalized edema affecting lower > upper extremities and abdomen. Denies fever/chills or abdominal pain. Of note the patient had an established history of cirrhosis 2/2 to JOHNSON and was on the liver transplant list before pancreatic mass was found on imaging Allergies Allergy/AdvReac Type Severity Reaction Status Date / Time No Known Drug Allergies Allergy Unknown Verified 04/09/22 20:20 Home Medications Medication Instructions Recorded Confirmed Type blood-glucose meter (Brand ThunderTouch #1 ea 04/26/19 02/17/22 History Verio Meter) lancets 30 gauge (Brand ThunderTouch Delica #100 ea 01/04/21 02/17/22 Rx Lancets) metformin 500 mg tablet 500 mg PO BID #180 tabs 05/13/21 04/01/22 Rx cholecalciferol (vitamin D3) 50 2,000 unit PO QAM 02/12/22 04/01/22 History mcg (2,000 unit) tablet blood sugar diagnostic (Brand ThunderTouch #100 ea 02/17/22 02/17/22 Rx Verio test strips) enoxaparin 100 mg/mL subcutaneous 100 mg subcut DAILY 02/17/22 04/01/22 History syringe (Lovenox) Past Med/Surg History Medical History Diabetes mellitus, type 2 Dyslipidemia Liver cirrhosis secondary to nonalcoholic steatohepatitis (JOHNSON) following with [facility] GI and transplant clinic, undergoing transplant testing/appointments with plan to f/u with transplant clinic in next 4-6 months Osteoarthritis Pancreatic cancer (11/08/21) Positive JULIAN (antinuclear antibody) Thrombocytopenia Vitamin D deficiency Surgical History History of ankle surgery R ankle, 2012 History of cholecystectomy (03/24/18) 03/24/18: Grade 1 view, Pritchard#2, ETT#7.0, atraumatic x 1. No issues per anesthesia postop progress note. History of excision of pilonidal cyst History of liver biopsy w/ cholecystectomy 03/24/18: Grade 1 view, Pritchard#2, ETT#7.0, atraumatic x 1. No issues per anesthesia postop progress note. S/P ankle ligament repair b/l ankles S/P panniculectomy S/P tonsillectomy Family History Mother Bipolar disorder Hypertension Depression Father Coronary heart disease Myocardial infarction, Onset Age: 74 Diabetes Hypertension Grandfather (Maternal) Myocardial infarction, Onset Age: 58 Brother No problems noted. Brother No problems noted. Brother No problems noted. Brother No problems noted. Brother No problems noted. Sister No problems noted. Son No problems noted. Denies family history of Ovarian cancer Prostate cancer Breast cancer Colorectal cancer Social History (Updated 02/17/22 @ 07:46 by Gracie Brown) Smoking Status: Current every day smoker Tobacco Type: Cigarettes packs per day: 0.75; Years Smoked: 45; Cigarettes Per Day: .75 ppd; Second Hand Exposure: No; Hx Alcohol Use: No Hx Substance Use: No Preferred Language: Japanese Communication Ability: Effective Visual Impairment: No Limitations Hearing Ability: Normal Deputy Jailer Required: No Beliefs That Will Affect Care: None marital status: Current Living Situation: Spouse current occupational status: retired 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 Feels Safe at Home: Yes caffeine: Yes during the past year weight has: remained stable Dental Care, Regularly: Yes Physical Activity Frequency: Daily Seatbelt Use: always Sunscreen Use: No Assistive Devices: Denture - Upper and Glasses Results & Data Results & Data ([facility]) Vital Signs (Past 12 Hours) Vital Signs Temp Pulse Pulse Resp BP BP Pulse Ox 04/09/22 19:25 37.8 C H 114 H 22 53/42 L 94 04/09/22 19:29 36.9 C 113 H 22 75/29 L 95 04/09/22 18:40 37.6 C H 114 H 25 H 92/50 L 94 04/09/22 18:25 37.1 C 114 H 20 89/41 L 93 04/09/22 18:25 37.2 C 113 H 24 89/41 L 92 04/09/22 18:10 37.4 C 114 H 20 80/54 L 93 04/09/22 17:47 24 115 H 04/09/22 17:19 115 H 22 82/51 L 95 04/09/22 17:11 112 H 22 94 04/09/22 17:11 94 04/09/22 16:26 37.4 C 110 H 26 H 71/55 L 93 04/09/22 16:21 37.4 C 110 H 22 89/62 L 93 O2 Del Method O2 Flow Rate 04/09/22 19:25 4 04/09/22 19:29 4 04/09/22 18:40 04/09/22 18:25 2 04/09/22 18:25 04/09/22 18:10 2 04/09/22 17:47 Nasal Cannula 2 04/09/22 17:19 Nasal Cannula 2 04/09/22 17:11 Nasal Cannula 2 04/09/22 17:11 Nasal Cannula 94 04/09/22 16:26 Room Air 04/09/22 16:21 Room Air
[2022-04-09] MEDS ORDERED: PHYTONADIONE 10 MG in DEXTROSE 5% 50 ML IV ONE (20:00)
[2022-04-09] MEDS ORDERED: ACETAMINOPHEN 325 MG TAB PO STA (20:37)
--- NOTE | 2022-04-09 20:37 | Hospitalist Consultation ---
Date of Consultation April 09, 2022 Assessment & Plan (1) Upper GI bleed: Melanotic stools x several days with associated generalized weakness/fatigue. Black/tarry stool and heme+ in ED. Hgb 11 --> 8.4 within last 5 days. Suspect acute variceal bleed in this patient with cirrhosis and established upper GI varices per today's CT scan. This is major contributor to current hypotension. - spoke with Dr. Salmeron ([facility]): recommends transfer to tertiary center, for availability of IR in this patient with significant comorbidities who will need EGD and possible paracentesis - ER provider will be arranging transfer - s/p 1 unit pRBCs in ED, with another unit running currently - recommend close monitoring of Hgb and melena with further transfusions to maintain Hgb >8 - s/p Protonix 80mg IVP - recommend initiation of Protonix gtt (ordered and will be running once pRBC transfusion is complete) - agree with Ceftriaxone for ppx in this patient with cirrhosis - agree with Octreotide gtt (confirmed upper GI varices per CT A/P today) (2) Hypotension: Profound hypotension with SBP down to 50s. Likely due to acute upper GI bleed as well as anasarca. - started Norepinephrine gtt with improvement of BP to 99/58 - continue (3) Anasarca: Due to cirrhosis and portal vein thrombosis. - held Lasix before it was administered, due to profound hypotension - patient will likely benefit from therapeutic paracentesis, but will need to be done at tertiary center as stated above (4) Acute respiratory failure with hypoxia: Moderately increased work of breathing requiring 4L/min NC. With mild pulm edema and moderate right pleural effusion. Likely due to anasarca/ascites. - maintain SpO2 >90% with supplemental O2 - paracentesis with be therapeutic in this regard as well - will need to be done at tertiary center as stated above (5) SACHA (acute kidney injury): Cr 1.91, normal baseline. Likely pre-renal injury due to hypotension/GI bleed but may also be developing hepatorenal syndrome. - agree with Octreotide, and Norepinephrine, as stated above - added Albumin 25gm x1 - however would first prioritize pressors/octreotide/pRBCs - trend closely (6) Leukopenia: WBC 1.97, has been low since starting RTx in 01/2022. Although patient is borderline febrile I suspect this is largely due to above-mentioned acute problems, rather than infection. No abdominal pain - low suspicion for SBP. - agree with CTX as stated above - blood cxs drawn before initiation of abx - trend and adjust regimen as necessary - trend CBC closely (7) Thrombocytopenia: Plts 50, which is chronic baseline. INR also elevated at 2.3 which has steadily increased over last several years. - ordered Vitamin K 10mg IV - would first prioritize pressors/pRBCs - trend closely (8) Elevated troponin: hsTroponin 33.8 on presentation. No chest pain and EKG without ST/T changes. Suspect demand ischemia in context of hypotension/GI bleed. - trend (9) Portal vein thrombosis: Previous diagnosis, patient is on therapeutic Lovenox and last took it yesterday evening. This is likely contributing to anasarca. - hold Lovenox due to upper GI bleed (10) Pancreatic cancer: Diagnosed earlier this year, RTx since 01/2022 at our cancer center with Dr. Denise. Patient and her are intent on pursuing further treatment for this, as well as all measures necessary to treat the above-mentioned acute conditions. (11) Liver cirrhosis secondary to nonalcoholic steatohepatitis (JOHNSON): Major cause of current anasarca. - treatment plan as stated above (12) Diabetes mellitus, type 2: Currently hypoglycemic likely due to above-mentioned acute problems as well as decreased PO intake. - treatment of hypoglycemia as necessary per hospital protocol Plan As stated above, recommend transfer to tertiary center as soon as patient can be accepted. Thank you for this consult. Please refer to Dr. Anderson's addendum for further documentation. History of Present Illness Reason for Consultation: upper GI bleed, anasarca, hypotension Requesting Physician: Dr. Wong Attending Physician: Dr. Wong History of Present Illness Geneva Cruz is a 62yo female with PMHx significant for pancreatic adenocarcinoma (diagnosed in early 2021, started RTx with Dr. Denise in 01/2022), pulmonary nodule (8mm, per CT in 01/2022)JOHNSON, liver cirrhosis with ascites (had paracentesis last week with 5L fluid removed), thrombocytopenia, portal vein thrombosis (on Lovenox), T2DM (A1c 7.0 in 01/2022), and dyslipidemia who presented to [facility] ED on 04/09/2022 for worsening melanotic stools x 2-3 days as well as generalized weakness for 24 hours. Patient reports 4-5 loose melanotic stools over last several days and then says she cannot "stay on her feet" over last 24 hours due to significant generalized weakness/fatigue. Denies N/V or hematemesis. Also reports worsening generalized edema for 2 months, particularly over last 1- 2 weeks. She reportedly had a therapeutic paracentesis with extraction of 5L fluid last week but has nonetheless had progressive generalized edema affecting lower > upper extremities and abdomen. Denies fever/chills or abdominal pain. Of note the patient had an established history of cirrhosis 2/2 to JOHNSON and was on the liver transplant list before pancreatic mass was found on imaging. In the ED the patient was profoundly hypotensive down to 53/42, tachycardic in 110s-120s, and borderline febrile with T37.9C. Required 4L NC. Labs significant for Hgb 8.4 (down from 10.9 several days ago, baseline 11s), WBC 1.97 (baseline 2-3 since starting RTx), plts 50 (chronic baseline). Procalcitonin 4.18. INR 2.3/PT 23.9/PTT 51.3 (all progressively increasing throughout this year). Na 126 (baseline mid 130s), HCO3 14, AG 19. BUN 31/Cr 1.91 (normal baseline). TBili 18.2 (gradually increasing x several years), Albumin 2.0. CXR with mild interstitial pulmonary edema, small right pleural effusion, and right basilar densities. CT A/P showing progression of severe body wall edema/anasarca in comparison to 01/2022, moderate right pleural effusion, moderate ascites, cirrhosis with splenomegaly and multiple upper abdominal varicosities, and generalized submucosal edema/thickening of colon. Patient was given Protonix 80mg IVP, D50 x2 for BSG low 50s, and Tylenol x1. We were initially paged for admission, but on further discussion with Dr. Salmeron ([facility]), he recommends that the patient be transferred to a tertiary center for IR availability in this complex medical patient who will likely need EGD and paracentesis. Allergies Allergy/AdvReac Type Severity Reaction Status Date / Time No Known Drug Allergies Allergy Unknown Verified 04/09/22 20:20 Home Medications Medication Instructions Recorded Confirmed Type blood-glucose meter (OneTouch #1 ea 04/26/19 02/17/22 History Verio Meter) lancets 30 gauge (OneTouch Delica #100 ea 01/04/21 02/17/22 Rx Lancets) metformin 500 mg tablet 500 mg PO BID #180 tabs 05/13/21 04/01/22 Rx cholecalciferol (vitamin D3) 50 2,000 unit PO QAM 02/12/22 04/01/22 History mcg (2,000 unit) tablet blood sugar diagnostic (OneTouch #100 ea 02/17/22 02/17/22 Rx Verio test strips) enoxaparin 100 mg/mL subcutaneous 100 mg subcut DAILY 02/17/22 04/01/22 History syringe (Lovenox) Patient History Medical History Diabetes mellitus, type 2 Dyslipidemia Liver cirrhosis secondary to nonalcoholic steatohepatitis (JOHNSON) following with [facility] and transplant clinic, undergoing transplant testing/appointments with plan to f/u with transplant clinic in next 4-6 months Osteoarthritis Pancreatic cancer (11/08/21) Positive JULIAN (antinuclear antibody) Thrombocytopenia Vitamin D deficiency Surgical History History of ankle surgery R ankle, 2012 History of cholecystectomy (03/24/18) 03/24/18: Grade 1 view, Pritchard#2, ETT#7.0, atraumatic x 1. No issues per anesthesia postop progress note. History of excision of pilonidal cyst History of liver biopsy w/ cholecystectomy 03/24/18: Grade 1 view, Pritchard#2, ETT#7.0, atraumatic x 1. No issues per anesthesia postop progress note. S/P ankle ligament repair b/l ankles S/P panniculectomy S/P tonsillectomy Family History Mother Bipolar disorder Hypertension Depression Father Coronary heart disease Myocardial infarction, Onset Age: 74 Diabetes Hypertension Grandfather (Maternal) Myocardial infarction, Onset Age: 58 Brother , Passed age 20 of MVA No problems noted. Brother No problems noted. Brother No problems noted. Brother No problems noted. Brother No problems noted. Sister No problems noted. Son No problems noted. 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 In mild respiratory distress. Appears fatigued and somnolent. Generalied jaundice. HEENT: Atraumatic, normocephalic. Pulm: Decreased breath sounds bilaterally with expiratory bibasilar crackles R>L. No wheezing. Symmetrical chest rise. Moderately increased work of breathing. Cardiac: RRR, -mrg. Radial pulses intact and symmetrical. Abdominal: soft, non-tender but distended with +fluid wave. Anasarca. LE: 3+ pitting edema throughout entire lower extremities - anasarca. Skin: spider angiomas present on shoulders and chest. Results & Data Results & Data ([facility]) Vital Signs (Past 12 Hours) Vital Signs Temp Pulse Pulse Resp BP BP Pulse Ox 04/09/22 20:19 120 H 24 82/68 L 94 04/09/22 20:09 24 94 04/09/22 20:05 37.9 C H 117 H 22 95/67 L 94 04/09/22 19:50 37.8 C H 115 H 22 91/72 L 96 04/09/22 19:25 37.8 C H 114 H 22 53/42 L 94 04/09/22 19:29 36.9 C 113 H 22 75/29 L 95 04/09/22 18:40 37.6 C H 114 H 25 H 92/50 L 94 04/09/22 18:25 37.1 C 114 H 20 89/41 L 93 04/09/22 18:25 37.2 C 113 H 24 89/41 L 92 04/09/22 18:10 37.4 C 114 H 20 80/54 L 93 04/09/22 17:47 24 115 H 04/09/22 17:19 115 H 22 82/51 L 95 04/09/22 17:11 112 H 22 94 04/09/22 17:11 94 04/09/22 16:26 37.4 C 110 H 26 H 71/55 L 93 04/09/22 16:21 37.4 C 110 H 22 89/62 L 93 O2 Del Method O2 Flow Rate 04/09/22 20:19 Nasal Cannula 4 04/09/22 20:09 Nasal Cannula 4 04/09/22 20:05 4 04/09/22 19:50 04/09/22 19:25 4 04/09/22 19:29 4 04/09/22 18:40 04/09/22 18:25 2 04/09/22 18:25 04/09/22 18:10 2 04/09/22 17:47 Nasal Cannula 2 04/09/22 17:19 Nasal Cannula 2 04/09/22 17:11 Nasal Cannula 2 04/09/22 17:11 Nasal Cannula 94 04/09/22 16:26 Room Air 04/09/22 16:21 Room Air Resident Activity Tracking Resident Involvement: Resident Care Provided Care Provided: Adult Hospital Medicine
--- NOTE | 2022-04-09 21:11 | Critical Care Consultation ---
Date of Consultation April 09, 2022 Assessment & Plan (1) Acute respiratory failure with hypoxia: Reason Critically Ill: 62-year-old unfortunate female with what appears to be end-stage pancreatic CA with underlying hepatic cirrhosis from J[place] presenting with concerns of likely upper GI bleeding, sepsis syndrome, and diffuse anasarca. I was asked by hospitalist team to evaluate the patient for admission. Prior to my assessment, the patient was noted to have a worsening anemia. There was concerns for upper GI bleeding. Patient without overt roopa bright red blood vomiting. She is currently receiving PRBCs and is requiring vasopressors. She is covered broadly with antibiotics. During evaluations of the patient's record, the patient was diagnosed again in the year with pancreatic adenocarcinoma stage Ib. During evaluation at [facility], she was felt to be a nonsurgical candidate secondary to underlying liver disease. She has been through radiation and her reports that since that she has had worsening symptoms. Unfortunately, the patient has now developed significant ascites and need for paracentesis which she had had performed last week with a total amount drained of 5 liters. Additionally, the patient was noted to have a near occlusive portal vein thrombus for which she is now on Lovenox. Given concern for ongoing bleeding risk and likely upper GI bleeding in the setting of known portal gastropathy and high risk for ongoing significant bleeding, I did feel it appropriate to have personal conversation with GI regarding case. After discussion, it was agreed that the patient would likely benefit from transfer to tertiary care secondary to high likelihood the patient will require interventional radiology and regardless this should likely be present during any endoscopies given her high risk for bleeding and need for intervention as well as the patient being a generally poor historian. I did have an extensive conversation with the patient and her at bedside. They seem unrealistic regarding expectations at this point. Apparently, the patient is said to have follow-up studies at the beginning of next month to evaluate for progression versus regression after radiation treatments. Unfortunately, I feels that the patient's underlying cirrhosis is largely more contributing at this time and that her pancreatic cancer diagnosis is only expediting her rapid decline. I did communicate my concerns as well as limitations at our institution. Patient and family are initially comfortable for transfer. This was communicated to ER physician. Patient had been accepted to [facility], however the ICU was without beds and there is question as to when they would be available as the ICU was full at this time. Family had declined transfer to [facility] or other institution. There was also insurance constraints as well. That being said, the patient was brought into our ICU given our inability to transport the patient at this time and with risk for worsening decompensation while in the emergency department. Case was reviewed with my attending who did present at bedside to perform paracentesis as well as central line placement. We will continue with antibiotic coverage. The patient did receive FFP and albumin. We will continue to recheck and replace blood products as needed. In the event the patient were to deteriorate, we will have Francisco tube at bedside. I have personally spent 75 minutes of critical care time in the direct management of this patient. This is a life/limb threatening event. This includes time spent evaluating patient, direct bedside care, chart review, placing orders, interpretation of diagnostic studies, discussion with consultants, patient, and family members, as well as other required patient management activities. This time is exclusive of all separately billable procedures, and teaching time and separate from and in addition to any other critical care service time. Thank you for allowing us to participate in the care of this patient. Please refer to my attending physician's documentation for any further recommendations. (2) Anasarca: (3) Portal vein thrombosis: (4) Upper GI bleed: (5) Pancreatic cancer: (6) Thrombocytopenia: Supervising Physician Co-Signing Physician Notes I have personally evaluated and examined this patient. I agree with assessment and plan of Sena Sharpe PA-C. Discussed risks and benefits of procedures. Patient was tachypneic and complaining of shortness of breath, diagnostic and therapeutic paracentesis was entertained. 2.5 L fluid removed. Placed left subclavian central venous catheter. Discussed CODE STATUS patient desires full aggressive resuscitative measures at this time. I am concerned for severe sepsis/septic shock. Presently the patient is able to mentate and has capacity to make her medical decisions. Reportedly the patient has portal gastropathy if she is having a variceal bleed in the stomach this would be unamenable to intervention and would necessitate a Francisco tube placement and transfer to [facility]. She has already been accepted to [facility] given our limitations to provide definitive care for gastric varices and probable need for interventional radiology intervention should there be a variceal bleeding component. I am very concerned for a poor outcome, the prognosis is certainly poor. History of Present Illness History of Present Illness Patient is an unfortunate 62-year-old female with a significant past medical history of JOHNSON, cirrhosis, dyslipidemia, diabetes, and pancreatic cancer. Unfortunately, the patient was diagnosed at beginning of this year with stage IB adenocarcinoma. She was evaluated at [facility] and was felt to not be a surgical candidate secondary to underlying liver cirrhosis. She did undergo radiation as she was not amendable to chemotherapeutics secondary to baseline thrombocytopenia in the setting of liver disease. Patient has not undergone therapy recently. Unfortunately, patient was having increased abdominal distention and ascites. During CT of the abdomen pelvis, the patient was noted to have a nearly occlusive portal vein thrombus. Additionally, during a initial EGD back in October, she had already concerns of portal gastropathy. Patient had undergone therapeutic paracentesis last week where she was drained for 5 L. Patient has had shortness of breath, abdominal distention, and falls over the past 36 hours. Worsening jaundice per . Also concerns for black stools. In the emergency department, the patient was noted to be hypotensive. In addition, there had been a drop in her H&H. Procalcitonin was elevated. She is leukopenic and thrombocytopenic. She was ordered PRBCs. She was covered broadly with antibiotics and received albumin. Patient is now requiring vasopressors. Was asked to evaluate the patient by hospitalist service for possible need for admission. Upon my evaluation in the emergency department, the patient is in mild respiratory distress. She complains of abdominal distention which she reports causes worsening breathing. She is jaundiced with scleral icterus. She is mentating well, but does appear uncomfortable. Allergies Allergy/AdvReac Type Severity Reaction Status Date / Time No Known Drug Allergies Allergy Unknown Verified 04/09/22 20:20 Home Medications Medication Instructions Recorded Confirmed Type blood-glucose meter (OneTouch #1 ea 04/26/19 02/17/22 History Verio Meter) lancets 30 gauge (OneTouch Delica #100 ea 01/04/21 02/17/22 Rx Lancets) metformin 500 mg tablet 500 mg PO BID #180 tabs 05/13/21 04/09/22 Rx cholecalciferol (vitamin D3) 50 2,000 unit PO QAM 02/12/22 04/09/22 History mcg (2,000 unit) tablet blood sugar diagnostic (OneTouch #100 ea 02/17/22 02/17/22 Rx Verio test strips) enoxaparin 100 mg/mL subcutaneous 100 mg subcut DAILY 02/17/22 04/09/22 History syringe (Lovenox) Patient History Medical History Diabetes mellitus, type 2 Dyslipidemia Liver cirrhosis secondary to nonalcoholic steatohepatitis (JOHNSON) following with [facility] GI and transplant clinic, undergoing transplant testing/appointments with plan to f/u with transplant clinic in next 4-6 months Osteoarthritis Pancreatic cancer (11/08/21) Positive JULIAN (antinuclear antibody) Thrombocytopenia Vitamin D deficiency Surgical History History of ankle surgery R ankle, 2012 History of cholecystectomy (03/24/18) 03/24/18: Grade 1 view, Pritchard#2, ETT#7.0, atraumatic x 1. No issues per anesthesia postop progress note. History of excision of pilonidal cyst History of liver biopsy w/ cholecystectomy 03/24/18: Grade 1 view, Pritchard#2, ETT#7.0, atraumatic x 1. No issues per anesthesia postop progress note. S/P ankle ligament repair b/l ankles S/P panniculectomy S/P tonsillectomy Family History Mother Bipolar disorder Hypertension Depression Father Coronary heart disease Myocardial infarction, Onset Age: 74 Diabetes Hypertension Grandfather (Maternal) Myocardial infarction, Onset Age: 58 Brother , Passed age 20 of MVA No problems noted. Brother No problems noted. Brother No problems noted. Brother No problems noted. Brother No problems noted. Sister No problems noted. Son No problems noted. 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 All else were negative. Physical Exam Physical Exam: VITAL SIGNS - Vital signs and nursing notes were reviewed. GENERAL - 62-year-old female appearing her stated age who is in mild respiratory distress. Communicates well with provider and answers questions appropriately. SKIN - Skin is icteric with spider angiomas and telangiectasias present. HEAD - NC/AT. EYES - PERRL with EOMI bilaterally. Scleral icterus. Palpebral conjunctiva pink and moist with no injection noted. EARS - No deformities of external structures noted on gross examination bilaterally. NOSE - Midline and without cyanosis. No epistaxis or purulent drainage noted. MOUTH/OROPHARYNX - Without perioral cyanosis. Buccal mucosa pink and dry. NECK - Neck with FROM. Supple to palpation. No lymphadenopathy noted. No nuchal rigidity. LUNGS -tachypneic. Expiratory wheezes appreciated throughout all lung yañez. CARDIAC - RRR with S1/S2. No murmur, rubs, or gallops appreciated. ABDOMEN - Abdominal contour distended. Distant hypoactive bowel sounds noted. Significant ascites present. Fullness without overt rebound guarding or tenderness to palpation. EXTREMITIES - No clubbing or peripheral cyanosis. Diffuse peipheral edema present throughout all extremities. +3/5 radial and dorsalis pedis pulses palpated throughout. +4/5 strength noted in UE/LE bilaterally. NEUROLOGIC - Cranial nerves II through XII grossly intact. Sensory intact to light touch throughout. PSYCH - A&Ox3 and cooperates fully with examiner. Pt is very pleasant and interacts well with examiner. Results & Data Results & Data ([facility]) Vital Signs (Past 12 Hours) Vital Signs Temp Pulse Pulse Resp BP BP Pulse Ox 04/09/22 20:55 37.8 C H 118 H 24 100/71 94 07/13/22 20:35 37.8 C H 120 H 24 97/81 L 94 04/09/22 20:19 120 H 24 82/68 L 94 04/09/22 20:09 24 94 04/09/22 20:05 37.9 C H 117 H 22 95/67 L 94 04/09/22 19:50 37.8 C H 115 H 22 91/72 L 96 04/09/22 19:25 37.8 C H 114 H 22 53/42 L 94 04/09/22 19:29 36.9 C 113 H 22 75/29 L 95 04/09/22 18:40 37.6 C H 114 H 25 H 92/50 L 94 04/09/22 18:25 37.1 C 114 H 20 89/41 L 93 04/09/22 18:25 37.2 C 113 H 24 89/41 L 92 04/09/22 18:10 37.4 C 114 H 20 80/54 L 93 04/09/22 17:47 24 115 H 04/09/22 17:19 115 H 22 82/51 L 95 04/09/22 17:11 112 H 22 94 04/09/22 17:11 94 04/09/22 16:26 37.4 C 110 H 26 H 71/55 L 93 04/09/22 16:21 37.4 C 110 H 22 89/62 L 93 O2 Del Method O2 Flow Rate 04/09/22 20:55 4 04/09/22 20:35 4 04/09/22 20:19 Nasal Cannula 4 04/09/22 20:09 Nasal Cannula 4 04/09/22 20:05 4 04/09/22 19:50 04/09/22 19:25 4 04/09/22 19:29 4 04/09/22 18:40 04/09/22 18:25 2 04/09/22 18:25 04/09/22 18:10 2 04/09/22 17:47 Nasal Cannula 2 04/09/22 17:19 Nasal Cannula 2 04/09/22 17:11 Nasal Cannula 2 04/09/22 17:11 Nasal Cannula 94 04/09/22 16:26 Room Air 04/09/22 16:21 Room Air Coding Level of Care Code Critical Care 1st 30-74 mins Diagnoses Acute respiratory failure with hypoxia J96.01 Anasarca R60.1 Portal vein thrombosis I81 Upper GI bleed K92.2 Pancreatic cancer C25.9 Thrombocytopenia D69.6
[2022-04-09] MEDS: OCTREOTIDE ACETATE 500 MCG in DEXTROSE 5% 100 ML IV SCH (21:27)
[2022-04-09 21:31] LABS: Base Excess VBG -12.3 mEq/L; HCO3 VBG 15 mmol/L; Oxygen Saturation VBG 85.4 %; PCO2 VBG 37 mmHg (38-50); PO2 VBG 58 mmHg; pH VBG 7.21 (7.36-7.41)
--- NOTE | 2022-04-09 22:12 | History & Physical Report ---
Date of Service April 09, 2022 Assessment & Plan (1) Upper GI bleed: Plan: Melanotic stools x several days with associated generalized weakness/fatigue. Black/tarry stool and heme+ in ED. Hgb 11 --> 8.4 within last 5 days. Suspect acute variceal bleed in this patient with cirrhosis and established upper GI varices per today's CT scan. This is major contributor to current hypotension. - spoke with Dr. Salmeron ([facility]): recommends transfer to tertiary center, for a vailability of IR in this patient with significant comorbidities who will need EGD and possible paracentesis - patient is on wait lists for [facility] and [facility], but cannot be transferred tonight due to lack of availability - will admit the patient to ICU for close hemodynamic monitoring and need for invasive lines/pressors - s/p 1 unit pRBCs in ED, with another unit running currently - recommend close monitoring of Hgb and melena with further transfusions to maintain Hgb >8 - s/p Protonix 80mg IVP - will initiate Protonix gtt (ordered and will be running once pRBC transfusion is complete) - continue Ceftriaxone for ppx in this patient with cirrhosis - continue Octreotide gtt (confirmed upper GI varices per CT A/P today) - GI consulted - appreciate ongoing recs (2) Hypotension: Plan: Profound hypotension with SBP down to 50s. Likely due to acute upper GI bleed as well as anasarca. - started Norepinephrine gtt with improvement of BP to 80s-90s/50s-60s - continue - invasive lines and further vasopressor treatment per ICU (3) Anasarca: Plan: Due to cirrhosis and portal vein thrombosis. - held Lasix before it was administered, due to profound hypotension - patient will likely benefit from therapeutic paracentesis - defer to ICU (4) Acute respiratory failure with hypoxia: Plan: Moderately increased work of breathing requiring 4L/min NC. With mild pulm edema and moderate right pleural effusion. Likely due to anasarca/ascites. - maintain SpO2 >90% with supplemental O2 - paracentesis would be therapeutic in this regard as well - defer to ICU (5) SACHA (acute kidney injury): Plan: Cr 1.91, normal baseline. Likely pre-renal injury due to hypotension/GI bleed but may also be developing hepatorenal syndrome. - Octreotide, and Norepinephrine, as stated above - added Albumin 25gm x1 - however would first prioritize pressors/octreotide/pRBCs - trend closely (6) Leukopenia: Plan: WBC 1.97, has been low since starting RTx in 01/2022. Although patient is borderline febrile I suspect this is largely due to above-mentioned acute proble ms, rather than infection. No abdominal pain - low suspicion for SBP. - agree with CTX as stated above - blood cx drawn before initiation of abx - trend and adjust regimen as necessary - trend CBC closely (7) Thrombocytopenia: Plan: Plts 50, which is chronic baseline. INR also elevated at 2.3 which has steadily increased over last several years. - ordered FFP and 1 unit platelets - ordered Vitamin K 10mg IV - would first prioritize pressors/pRBCs - trend closely (8) Elevated troponin: Plan: hsTroponin 33.8 on presentation. No chest pain and EKG without ST/T changes. Suspect demand ischemia in context of hypotension/GI bleed. - trend (9) Portal vein thrombosis: Plan: Previous diagnosis, patient is on therapeutic Lovenox and last took it yesterday evening. This is likely contributing to anasarca. - hold Lovenox due to upper GI bleed (10) Pancreatic cancer: Plan: Diagnosed earlier this year, RTx since 01/2022 at our cancer center with Dr. Denise. Patient and her are intent on pursuing further treatment for this, as well as all measures necessary to treat the above-mentioned acute conditions. - consulted Heme/Onc (11) Liver cirrhosis secondary to nonalcoholic steatohepatitis (JOHNSON): Plan: Major cause of current anasarca. - treatment plan as stated above (12) Diabetes mellitus, type 2: Plan: Currently hypoglycemic likely due to above-mentioned acute problems as well as decreased PO intake. - treatment of hypoglycemia as necessary per hospital protocol FEN/GI: NPO GI ppx: Protonix gtt DVT Prophylaxis: contraindicated due to upper GI bleed Code Status: full code - discussed with patient and Disposition: ICU History of Present Illness Chief Complaint: melena, generalized weakness, generalized swelling Primary Care Provider: DO Daksha Villafernandez Cruz is a 62yo female with PMHx significant for pancreatic adenocarcinoma (diagnosed in early 2021, started RTx with Dr. Denise in 01/2022), pulmonary nodule (8mm, per CT in 01/2022)JOHNSON, liver cirrhosis with ascites (had paracentesis last week with 5L fluid removed), thrombocytopenia, portal vein thrombosis (on Lovenox), T2DM (A1c 7.0 in 01/2022), and dyslipidemia who presented to [facility] ED on 04/09/2022 for worsening melanotic stools x 2-3 days as well as generalized weakness for 24 hours. Patient reports 4-5 loose melanotic stools over last several days and then says she cannot "stay on her feet" over last 24 hours due to significant generalized weakness/fatigue. Denies N/V or hematemesis. Also reports worsening generalized edema for 2 months, particularly over last 1- 2 weeks. She reportedly had a therapeutic paracentesis with extraction of 5L fluid last week but has nonetheless had progressive generalized edema affecting lower > upper extremities and abdomen. Denies fever/chills or abdominal pain. Of note the patient had an established history of cirrhosis 2/2 to JOHNSON and was on the liver transplant list before pancreatic mass was found on imaging. In the ED the patient was profoundly hypotensive down to 53/42, tachycardic in 110s-120s, and borderline febrile with T37.9C. Required 4L NC. Labs significant for Hgb 8.4 (down from 10.9 several days ago, baseline 11s), WBC 1.97 (baseline 2-3 since starting RTx), plts 50 (chronic baseline). Procalcitonin 4.18. INR 2.3/PT 23.9/PTT 51.3 (all progressively increasing throughout this year). Na 126 (baseline mid 130s), HCO3 14, AG 19. BUN 31/Cr 1.91 (normal baseline). TBili 1 8.2 (gradually increasing x several years), Albumin 2.0. CXR with mild interstitial pulmonary edema, small right pleural effusion, and right basilar densities. CT A/P showing progression of severe body wall edema/anasarca in comparison to 01/2022, moderate right pleural effusion, moderate ascites, cirrhosis with splenomegaly and multiple upper abdominal varicosities, and generalized submucosal edema/thickening of colon. Patient was given Protonix 80mg IVP, D50 x2 for BSG low 50s, and Tylenol x1. We were paged for admission. Of note Dr. Salmreon ([facility]) recommends that the patient be transferred to a tertiary center for IR availability, as she is medically complex with high risk for complications and will likely need EGD and paracentesis. ER Provider contact [facility] and [facility] - unfortunately no availability currently, so the patient will be admitted here and is on wait lists for both hospitals. Allergies Allergy/AdvReac Type Severity Reaction Status Date / Time No Known Drug Allergies Allergy Unknown Verified 04/09/22 20:20 Home Medications Medication Instructions Recorded Confirmed Type blood-glucose meter (OneTouch #1 ea 04/26/19 02/17/22 History Verio Meter) lancets 30 gauge (OneTouch Delica #100 ea 01/04/21 02/17/22 Rx Lancets) metformin 500 mg tablet 500 mg PO BID #180 tabs 05/13/21 04/09/22 Rx cholecalciferol (vitamin D3) 50 2,000 unit PO QAM 02/12/22 04/09/22 History mcg (2,000 unit) tablet blood sugar diagnostic (OneTouch #100 ea 02/17/22 02/17/22 Rx Verio test strips) enoxaparin 100 mg/mL subcutaneous 100 mg subcut DAILY 02/17/22 04/09/22 History syringe (Lovenox) Past Med/Surg History Medical History Diabetes mellitus, type 2 Dyslipidemia Liver cirrhosis secondary to nonalcoholic steatohepatitis (JOHNSON) following with [facility] and transplant clinic, undergoing transplant testing/appointments with plan to f/u with transplant clinic in next 4-6 months Osteoarthritis Pancreatic cancer (11/08/21) Positive JULIAN (antinuclear antibody) Thrombocytopenia Vitamin D deficiency Surgical History History of ankle surgery R ankle, 2012 History of cholecystectomy (03/24/18) 03/24/18: Grade 1 view, Pritchard#2, ETT#7.0, atraumatic x 1. No issues per anesthesia postop progress note. History of excision of pilonidal cyst History of liver biopsy w/ cholecystectomy 03/24/18: Grade 1 view, Pritchard#2, ETT#7.0, atraumatic x 1. No issues per anesthesia postop progress note. S/P ankle ligament repair b/l ankles S/P panniculectomy S/P tonsillectomy Family History Mother Bipolar disorder Hypertension Depression Father Coronary heart disease Myocardial infarction, Onset Age: 74 Diabetes Hypertension Grandfather (Maternal) Myocardial infarction, Onset Age: 58 Brother , Passed age 20 of MVA No problems noted. Brother No problems noted. Brother No problems noted. Brother No problems noted. Brother No problems noted. Sister No problems noted. Son No problems noted. 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 In mild respiratory distress. Appears fatigued and somnolent. Generalied jaundice. HEENT: Atraumatic, normocephalic. Pulm: Decreased breath sounds bilaterally with expiratory bibasilar crackles R>L. No wheezing. Symmetrical chest rise. Moderately increased work of breathing. Cardiac: RRR, -mrg. Radial pulses intact and symmetrical. Abdominal: soft, non-tender but distended with +fluid wave. Anasarca. LE: 3+ pitting edema throughout entire lower extremities - anasarca. Skin: spider angiomas present on shoulders and chest. Results & Data Results & Data ([facility]) Vital Signs (Past 12 Hours) Vital Signs Temp Pulse Pulse Resp BP BP Pulse Ox 04/09/22 22:00 115 H 26 H 79/47 L 92 04/09/22 21:48 37.1 C 117 H 24 82/58 L 92 04/09/22 21:46 24 93 04/09/22 21:30 116 H 24 100/40 L 93 04/09/22 21:10 37.1 C 117 H 24 99/58 L 93 04/09/22 21:07 37.1 C 119 H 24 99/58 L 93 04/09/22 21:03 37.1 C 118 H 24 99/58 L 93 04/09/22 20:55 37.8 C H 118 H 24 100/71 94 04/09/22 20:35 37.8 C H 120 H 24 97/81 L 94 04/09/22 20:19 120 H 24 82/68 L 94 04/09/22 20:09 24 94 04/09/22 20:05 37.9 C H 117 H 22 95/67 L 94 04/09/22 19:50 37.8 C H 115 H 22 91/72 L 96 04/09/22 19:25 37.8 C H 114 H 22 53/42 L 94 04/09/22 19:29 36.9 C 113 H 22 75/29 L 95 04/09/22 18:40 37.6 C H 114 H 25 H 92/50 L 94 04/09/22 18:25 37.1 C 114 H 20 89/41 L 93 04/09/22 18:25 37.2 C 113 H 24 89/41 L 92 04/09/22 18:10 37.4 C 114 H 20 80/54 L 93 04/09/22 17:47 24 115 H 04/09/22 17:19 115 H 22 82/51 L 95 04/09/22 17:11 112 H 22 94 04/09/22 17:11 94 04/09/22 16:26 37.4 C 110 H 26 H 71/55 L 93 04/09/22 16:21 37.4 C 110 H 22 89/62 L 93 O2 Del Method O2 Flow Rate 04/09/22 22:00 Nasal Cannula 4 04/09/22 21:48 Nasal Cannula 4 04/09/22 21:46 Nasal Cannula 4 04/09/22 21:30 Nasal Cannula 4 04/09/22 21:10 4 04/09/22 21:07 04/09/22 21:03 Nasal Cannula 4 04/09/22 20:55 4 04/09/22 20:35 4 04/09/22 20:19 Nasal Cannula 4 04/09/22 20:09 Nasal Cannula 4 04/09/22 20:05 4 04/09/22 19:50 04/09/22 19:25 4 04/09/22 19:29 4 04/09/22 18:40 04/09/22 18:25 2 04/09/22 18:25 04/09/22 18:10 2 04/09/22 17:47 Nasal Cannula 2 04/09/22 17:19 Nasal Cannula 2 04/09/22 17:11 Nasal Cannula 2 04/09/22 17:11 Nasal Cannula 94 04/09/22 16:26 Room Air 04/09/22 16:21 Room Air Code Status & VTE Plan VTE Prophylaxis Plan VTE Prophylaxis will be ordered: No Supervising Physician Co-Signing Physician Notes I personally saw and examined the patient. I verified all dorsey points and agree with resident physician Dr Connors with the following exceptions and/or additions: 62 year old female presents with melena and generalized weakness. No current nausea or vomiting. O/E A&Ox3, tachycardia, regular rhythm, Chest coarse crackles b/l, abdomen distended, soft, non tender, 3+ pitting edema in extremities with generalized anasarca. A/P Suspected UGI bleed - planning on transfer for tertiary center that can provide IR. admit to ICU pending transfer. Continue IV pantoprazole and octreotide. Started on Levophed. s/p 2 units packed RBCs, now ordering FFP and Plt. 10mg Vitamin K. IV Ceftriaxone 2g. Resident Activity Tracking Resident Involvement: Resident Care Provided Care Provided: Adult Hospital Medicine
[2022-04-09] MEDS: VASOPRESSIN 20 UNITS in 0.9 % SODIUM CHLORIDE 100 ML IV SCH (23:00)
[2022-04-09] MEDS ORDERED: ICU PROTOCOL FOR HYPERGLYCEMIA PRN (23:01)
--- NOTE | 2022-04-09 23:33 | Procedure Note ---
Procedure Note Date of Service April 09, 2022 Note Critical Care Medicine Procedure Date: Noted above Procedure: Paracentesis Pre-procedure Diagnosis: Concern for spontaneous bacterial peritonitis, tachypnea with impending respiratory failure Post-procedure Diagnosis: same as above Prior to Procedure: Informed Consent: The risks, benefits, indications, potential complications, and alternatives were explained to the patient and informed consent obtained. Attending Staff: Edgar Granado DO Resident/Physician Insurance Appraiser: Sena Sharpe The identity of the patient was confirmed and a bedside time out was performed. Description of Procedure: Patient positioned, the left lower quad of the abdomen was prepped and draped in usual sterile fashion. Static ultrasound guidance was used and appropriate fluid pocket was identified. 5 mL of 1% Lidocaine without epinephrine was used to anesthetize the area. A needle was introduced into the peritoneal space and fluid was removed. Total Fluid Removed: 2500 ml Color of Fluid: Yellow converted to carolyn Sent for: Gram Stain, culture, cell count, glucose, protein, cytology: Re: pancreatic cancer rule out mets Complications: None Estimated blood loss: Negligible Coding CPT Codes Abdomen - Abdominal: 42188 Abdominal Paracentesis (diagnostic or therapeutic); W/O imaging ([id number]) [facility] [place] Procedure Codes (Charges) Abdomen Abdominal: 21949 Abdominal Paracentesis (diagnostic or therapeutic); W/O imaging
--- NOTE | 2022-04-09 23:35 | Procedure Note ---
Procedure Note Date of Service April 09, 2022 Note Procedure date: Noted above Procedure: Central venous access Pre-procedure indication: Need for vasoactive medication administration Post-procedure Diagnosis: same as above Prior to Procedure: Informed Consent: The risks, benefits, indications, potential complications, and alternatives were explained to the patient and informed consent obtained. Attending Staff: Jose Luis Granado DO Resident/APC: Sena Sharpe Skin Prep: Chlorhexidine Anesthesia: 4 mL 1% lidocaine without epinephrine The identity of the patient was confirmed and a bedside time out was performed. Description of Procedure: After sterile prep and sterile drape utilizing standard sterile technique the superficial skin of the left subclavian area was anesthetized. The target vessel was identified and entered with an 18-gauge needle. Dark venous blood return was noted. A guidewire was inserted through the needle and into the vessel. The needle was withdrawn and a skin sherif was made. A tissue dilator was advanced via Seldinger technique and removed. A triple lumen catheter was inserted via Seldinger technique and the guidewire removed. All ports helen and flushed easily. A Biopatch was placed, and the catheter was secured via commercial securement device. A sterile dressing was then applied. Complications: None Coding CPT Codes Tubes, Drains, and Vasc Access - Tubes, Drains, and Vasc Access: [id number] Insertion Of Non-tunneled Catheter Age 3 Yrs> ([id number]) [facility] Procedure Codes (Charges) Tubes, Drains, and Vasc Access Procedure 1: Tubes, Drains, and Vasc Access: [id number] Insertion Of Non-tunneled Catheter Age 3 Yrs>
[2022-04-09] MEDS: ALBUMIN 25% 100 mL 25 GM/100 ML VIAL IV SCH (23:59)
[2022-04-10] MEDS: PANTOprazole 40 MG in DEXTROSE 5% 100 ML IV SCH ×2 (00:19→05:48)
[2022-04-10] MEDS: NOREPINEPHRINE/D5W 4 MG/250 ML PLCT IV SCH ×2 (00:27→02:06)
--- NOTE | 2022-04-10 00:55 | Procedure Note ---
Procedure Note Date of Service April 10, 2022 Note Procedure: Arterial Line Placement Attending: Dr. Granado APC: Maximilian Sharpe PA-C Indication: Hemodynamic monitoring Anesthesia: Lidocaine 1% Consent was signed and placed on the chart prior to procedure. Indication, risks, and benefits were explained at length. A time-out was completed verifying correct patient, procedure, site, positioning, and implant(s) or special equipment if applicable. Allens test was performed to ensure adequate perfusion. Patients LEFT wrist was prepped and draped in the usual sterile fashion. Ultrasound guidance was used to aid needle placement. A 20g Arrow arterial line was introduced into the LEFT Radial artery. Catheter was threaded, and the needle was removed with appropriate blood return. Good waveform was observed. The patient tolerated the procedure well. Confirmation of placement with ultrasound. Blood Loss: Minimal Complications: None Procedural Ultrasound Guidance: Procedure Date: 04/10/2022 Indication: Hemodynamic Monitoring, Frequent ABGs/Lab draws. Attending: Dr. Granado APC: Maximilian Sharpe PA-C Artery Identified: YES Line confirmed in Artery with ultrasound: YES Complications: NONE Patient tolerated procedure: WELL Coding CPT Codes Tubes, Drains, and Vasc Access - Tubes, Drains, and Vasc Access: [id number] Place Catheter In Artery ([id number]) [facility] [place] Procedure Codes (Charges) Tubes, Drains, and Vasc Access Procedure 1: Tubes, Drains, and Vasc Access: [id number] Place Catheter In Artery
[2022-04-10 00:56] LABS: Base Excess ABG -13.8 mEq/L (-9-1.8); HCO3 ABG 13 mmol/L (19-24); Oxygen Saturation ABG 97.6 % (90-95); PCO2 ABG 35 mmHg (35-46); PO2 ABG 91 mmHg (80-95)
[2022-04-10] MEDS: ALBUMIN 25% 100 mL 25 GM/100 ML VIAL IV SCH ×3 (00:59→03:45)
[2022-04-10 01:09] LABS: Hematocrit (blood only) 30.6 % (34.1-44.9)
[2022-04-10 01:12] LABS: BUN Creatinine Ratio 14.5 (10-20); Calcium 8.1 mg/dl (8.5-10.1); Creatinine Clr Calc Pharmacy 31.9 ml/min; Est GFR (African American) 25.6 ml/min; Est GFR (Non-African American) 22.1 ml/min; Magnesium 1.8 mg/dl (1.7-2.4); Phosphorus 4.6 mg/dl (2.5-4.9); Potassium 4.4 mmol/L (3.5-5.1)
[2022-04-10 01:13] LABS: Allen Test POS (Pos)
[2022-04-10] MEDS ORDERED: SODIUM BICARB 8.4% INJ 50 MEQ/50 ML SYR IV STA ×3 (01:13→02:59)
[2022-04-10 01:15] LABS: pH ABG 7.19 (7.35-7.45)
[2022-04-10] MEDS ORDERED: SODIUM BICARB 8.4% INJ 50 MEQ/50 ML SYR IV ONE (01:18)
[2022-04-10] MEDS ORDERED: CALCIUM CHLORIDE 10% 500 MG in DEXTROSE 5% 50 ML IV STA ×2 (01:29→02:54)
[2022-04-10 01:48] LABS: Albumin Peritoneal Fluid < 1.5 gm/dl; Total Protein Peritoneal Fluid < 3.0 gm/dl
[2022-04-10] MEDS ORDERED: STAT IV Infusion **Titration per Protocol STA (02:02)
--- NOTE | 2022-04-10 02:10 | Communication Note ---
Date of Service: April 10, 2022 Patient's blood pressures continue to remain soft despite aggressive management including escalating doses of Levophed, addition of vasopressin, correction of underlying acidosis with serum bicarbonate pushes, and addition of calcium chloride. Patient was reassessed and decision was made to place the patient on third pressor to include epinephrine. Earlier, I had reach out to [facility] to update them that the patient was now in the ICU. Unfortunately, soon after the patient had been accepted to [facility], her blood pressures remained refractory despite vasopressors and other medications. After the epinephrine was initiated, I did have extensive conversation with patient and at bedside. Unfortunately, she remains with soft blood pressures that do not seem to be responding to pressors. I did discuss that I was concerned that she is not stable to be transported, however I would communicate with [facility]. I did discuss the case with the on-call bucket wash operator, and he agrees that the patient certainly appears too unstable for transfer via [facility]. I did then have a significant conversation with the patient's and described that despite what were doing, her body continues to fail and that I am concerned that she is in the process of actively dying. He was appropriately emotional, but understanding. I did explain to the patient that I am concerned that despite everything that we are doing, she continues to decline. Unfortunately, she has not shown improvement despite her management. We did discuss CODE STATUS at bedside with the patient and her . At this point, they understand the gravity of the situation. Despite us maximizing her with antibiotics, pressors, electrolytes, etc., the patient continues to be hypotensive and is now developing renal failure with persistent acidosis. I did stress to them that despite our efforts, regardless of management, she still has underlying pancreatic cancer and significant cirrhosis which is likely expediting her dying process at this point. After conversation, patient does request DNR/DNI status. I do feel that this is appropriate at this point. The patient is persistently metabolically acidotic and she is tachypneic. She does appear to be weakening, however I did discuss with the that my concern is that if we were to proceed with intubation, we would lose what ruth time he has to speak with his at bedside. He agrees and they were all in agreement with no intubation, especially at this point. They do wish to continue current medications at this time. I am concerned that if we were to discontinue her pressors, the patient would pass away relatively quickly. I did make this aware to patient and family. They will let me know when or if they would wish to discontinue these. Otherwise, the patient's CODE STATUS is now changed to DNR/DNI. We will continue with current medications outlined for now. I have personally spent 85 minutes of critical care time in the direct management of this patient. This is a life/limb threatening event. This includes time spent evaluating patient, direct bedside care, chart review, placing orders, interpretation of diagnostic studies, discussion with consultants, patient, and family members, as well as other required patient management activities. This time is exclusive of all separately billable procedures, and teaching time and separate from and in addition to any other critical care service time. Coding Level of Care Code Critical Care 1st 30-74 mins Time Spent (min) 85
[2022-04-10] MEDS ORDERED: Standard 16mcg/mL; 4 MG in 250 mL for BRADYCARDIA IV SCH (02:15)
[2022-04-10] MEDS ORDERED: EPINEPHrine/NSS 4 MG/254 ML BAG IV SCH (02:15)
[2022-04-10 02:16] LABS: iSTAT Art Bld Gas pCO2 Correct 46 mmHg (35-46); iSTAT Art Bld Gas pH Corrected 7.222 (7.35-7.45); iSTAT Arterial Blood Gas HCO3 19 meg/L (19-24); iSTAT Arterial Blood Gas pCO2 45 mmHg (35-46); iSTAT Arterial Blood Gas pH 7.23 (7.35-7.45); iSTAT Arterial Blood Gas pO2 72 mmHg (80-95); iSTAT Arterial Blood Gas pO2 C 75; iSTAT Carbon Dioxide 20 mmol/L (24-31); iSTAT Hematocrit 28 % (37-47); iSTAT Hemoglobin 9.5 g/dl (12.0-16.0); iSTAT Potassium 5.5 mmol/L (3.3-5.0); iSTAT Site L Radial; iSTAT Sodium 126 mmol/L (135-144)
[2022-04-10] MEDS: Double Conc 32mcg/mL; 16mg in 500mL IV SCH ×2 (03:00→07:39)
[2022-04-10 03:03] LABS: Appearance Peritoneal Fluid Clear; Color Peritoneal Fluid Yellow; Lymphocytes, Fluid 46 %; Mono,Macrophage,Mesothelial 51 %; Neutrophils, Fluid 3 %; RBC Peritoneal Fluid (A) 3000 /uL; WBC Peritoneal Fluid (A) 37 /ul (0-300)
[2022-04-10] MEDS ORDERED: PIPERACILLIN/TAZOBACTAM 4.5 GM in DEXTROSE 5% 100 ML IV ONE (03:15)
[2022-04-10] MEDS ORDERED: Nursing to Pharmacy Communication SCH (04:30)
[2022-04-10 04:38] LABS: INR 3.1 (0.9-1.1)
[2022-04-10 04:49] LABS: Albumin Level 3.1 gm/dl (3.4-5.0); BUN Creatinine Ratio 14.3 (10-20); Bilirubin Direct 8.9 mg/dl (0-0.2); Bilirubin,Total 17.2 mg/dl (0.2-1.0); Calcium 8.6 mg/dl (8.5-10.1); Creatinine Clr Calc Pharmacy 31.3 ml/min; Est GFR (African American) 25.1 ml/min; Est GFR (Non-African American) 21.6 ml/min; Magnesium 1.9 mg/dl (1.7-2.4); Phosphorus 5.8 mg/dl (2.5-4.9); Total Protein 5.7 gm/dl (6.0-8.3)
[2022-04-10] MEDS: VASOPRESSIN 20 UNITS in 0.9 % SODIUM CHLORIDE 100 ML IV SCH (05:25)
[2022-04-10] MEDS: OCTREOTIDE ACETATE 500 MCG in DEXTROSE 5% 100 ML IV SCH (05:26)
[2022-04-10] MEDS ORDERED: DEXTROSE 50% 50 ML SYRINGE IV ONE (05:29)
[2022-04-10 05:32] LABS: A calco-baum cmplx NotReported Not Detected (NotDetected); Bact fragilis Not Reported Not Detected (NotDetected); C auris Not Reported Not Detected (NotDetected); Calbicans Not Reported Not Detected (NotDetected); Candida glabrata Not Reported Not Detected (NotDetected); Candida krusei Not Reported Not Detected (NotDetected); Cneoformans/gatti Not Reported Not Detected (NotDetected); Cparapsilosis Not Reported Not Detected (NotDetected); Ctropicalis Not Reported Not Detected (NotDetected); E cloacae compx Not Reported Not Detected (NotDetected); Efaecalis Not Reported Not Detected (NotDetected); Efaecium Not Reported Not Detected (NotDetected); Enterobacterales Not Reported Not Detected (NotDetected); Escherichia coli Not Reported Not Detected (NotDetected); H influenzae Not Reported Not Detected (NotDetected); K aerogenes Not Reported Not Detected (NotDetected); Koxytoca Not Reported Not Detected (NotDetected); Kpneumoniae grp Not Reported Not Detected (NotDetected); Lmonocyt Not Reported Not Detected (NotDetected); N meningitidis Not Reported Not Detected (NotDetected); P aeruginosa Not Reported Not Detected (NotDetected); Proteus spp Not Reported Not Detected (NotDetected); Salmonella spp Not Reported Not Detected (NotDetected); Smarcescens Not Reported Not Detected (NotDetected); Staph lugdunensis Not Reported Not Detected (NotDetected); Staph spp. Not Reported Not Detected (NotDetected); Staphaureus Not Reported Not Detected (NotDetected); Staphepi Not Reported Not Detected (NotDetected); Stenmaltophilia Not Reported Not Detected (NotDetected); Strep agal(GrpB) Not Reported Not Detected (NotDetected); Strep pneum Not Reported Not Detected (NotDetected); Strep pyog (GrpA) Not Reported Not Detected (NotDetected); Strep spp Not Reported Not Detected (NotDetected)
[2022-04-10] MEDS ORDERED: CARBOHYDRATES FOR HYPOGLYCEMIA PO PRN (05:34)
[2022-04-10] MEDS ORDERED: GLUCOSE 40% GEL 15 GM TUBE PO PRN (05:34)
[2022-04-10] MEDS ORDERED: GLUCOSE 10 TAB/TUBE PO PRN (05:34)
[2022-04-10] MEDS ORDERED: GLUCAGON FOR INJ 1 MG VIAL SQ PRN (05:34)
[2022-04-10] MEDS ORDERED: DEXTROSE 50% 50 ML SYRINGE IV PRN (05:34)
[2022-04-10 05:35] LABS: Hematocrit (blood only) 28.7 % (34.1-44.9); Hemoglobin 9.1 g/dl (12.0-16.0); Mean Corpuscular Hemoglobin 35.8 pg (25.0-34.0); Mean Corpuscular Hgb Conc 31.7 g/dL (32.0-36.0); Mean Platelet Volume 10.7 fL (9.4-12.3); Nucleated RBC # (auto) 2.49 K/uL (0-0); Nucleated RBC % (auto) 116.9 %; Platelet Count 49 K/uL (130-400); RDW Coefficient of Variation 22.4 % (11.5-14.5); RDW Standard Deviation 90.3 fL (36.4-46.3); Red Blood Count 2.54 M/uL (3.93-5.22); White Blood Count 2.13 K/ul (4.8-10.8)
[2022-04-10 06:14] LABS: ALC (manual) 0.21 K/uL (1.2-3.4); ANC (manual) 0.58 K/uL (1.4-6.5); Basophils # (manual) 0.06 K/uL (0-0.2); Basophils % (manual) 3 %; Eosinophils # (manual) 0.21 K/uL (0-0.50); Eosinophils % (manual) 10 %; Lymphocytes # (manual) 0.21 K/uL (1.2-3.4); Lymphocytes % (manual) 10 %; Metamyelocytes # (manual) 0.53 K/uL (0-0); Metamyelocytes % (manual) 25 %; Monocytes % (manual) 14 %; Myelocytes # (manual) 0.23 K/uL (0-0); Myelocytes % (manual) 11 %; Neutrophils # (manual) 0.58 K/uL (1.4-6.5); Neutrophils % (manual) 27 %
--- NOTE | 2022-04-10 06:57 | Hospitalist Progress Note ---
Date of Service April 10, 2022 Assessment & Plan (1) Upper GI bleed: Plan: Melanotic stools x several days with associated generalized weakness/fatigue. Black/tarry stool and heme+ in ED. Hgb 11 --> 8.4 within last 5 days. Suspect acute variceal bleed in this patient with cirrhosis and established upper GI varices per today's CT scan. This is major contributor to current hypotension. - spoke with Dr. Salmeron ([facility]): recommends transfer to tertiary center, for a vailability of IR in this patient with significant comorbidities who will need EGD and possible paracentesis - patient is on wait lists for [facility] and [facility], but cannot be transferred tonight due to lack of availability - will admit the patient to ICU for close hemodynamic monitoring and need for invasive lines/pressors - s/p 1 unit pRBCs in ED, with another unit running currently - recommend close monitoring of Hgb and melena with further transfusions to maintain Hgb >8 - s/p Protonix 80mg IVP - will initiate Protonix gtt (ordered and will be running once pRBC transfusion is complete) - continue Ceftriaxone for ppx in this patient with cirrhosis - continue Octreotide gtt (confirmed upper GI varices per CT A/P today) - GI consulted - appreciate ongoing recs (2) Hypotension: Plan: Profound hypotension with SBP down to 50s. Likely due to acute upper GI bleed as well as anasarca. - started Norepinephrine gtt with improvement of BP to 80s-90s/50s-60s - continue - invasive lines and further vasopressor treatment per ICU (3) Anasarca: Plan: Due to cirrhosis and portal vein thrombosis. - held Lasix before it was administered, due to profound hypotension - patient will likely benefit from therapeutic paracentesis - defer to ICU (4) Acute respiratory failure with hypoxia: Plan: Moderately increased work of breathing requiring 4L/min NC. With mild pulm edema and moderate right pleural effusion. Likely due to anasarca/ascites. - maintain SpO2 >90% with supplemental O2 - paracentesis would be therapeutic in this regard as well - defer to ICU (5) SACHA (acute kidney injury): Plan: Cr 1.91, normal baseline. Likely pre-renal injury due to hypotension/GI bleed but may also be developing hepatorenal syndrome. - Octreotide, and Norepinephrine, as stated above - added Albumin 25gm x1 - however would first prioritize pressors/octreotide/pRBCs - trend closely (6) Leukopenia: Plan: WBC 1.97, has been low since starting RTx in 01/2022. Although patient is borderline febrile I suspect this is largely due to above-mentioned acute proble ms, rather than infection. No abdominal pain - low suspicion for SBP. - agree with CTX as stated above - blood cx drawn before initiation of abx - trend and adjust regimen as necessary - trend CBC closely (7) Thrombocytopenia: Plan: Plts 50, which is chronic baseline. INR also elevated at 2.3 which has steadily increased over last several years. - ordered FFP and 1 unit platelets - ordered Vitamin K 10mg IV - would first prioritize pressors/pRBCs - trend closely (8) Elevated troponin: Plan: hsTroponin 33.8 on presentation. No chest pain and EKG without ST/T changes. Suspect demand ischemia in context of hypotension/GI bleed. - trend (9) Portal vein thrombosis: Plan: Previous diagnosis, patient is on therapeutic Lovenox and last took it yesterday evening. This is likely contributing to anasarca. - hold Lovenox due to upper GI bleed (10) Pancreatic cancer: Plan: Diagnosed earlier this year, RTx since 01/2022 at our cancer center with Dr. Denise. Patient and her are intent on pursuing further treatment for this, as well as all measures necessary to treat the above-mentioned acute conditions. - consulted Heme/Onc (11) Liver cirrhosis secondary to nonalcoholic steatohepatitis (JOHNSON): Plan: Major cause of current anasarca. - treatment plan as stated above (12) Diabetes mellitus, type 2: Plan: Currently hypoglycemic likely due to above-mentioned acute problems as well as decreased PO intake. - treatment of hypoglycemia as necessary per hospital protocol FEN/GI: NPO GI ppx: Protonix gtt DVT Prophylaxis: contraindicated due to upper GI bleed Code Status: full code - discussed with patient and Disposition: ICU Admission and Anticipated Discharge Date Admission Date: April 09, 2022 Physical Exam Physical Exam: General: A&Ox3. In mild respiratory distress. Appears fatigued and somnolent. Generalied jaundice. HEENT: Atraumatic, normocephalic. Pulm: Decreased breath sounds bilaterally with expiratory bibasilar crackles R>L. No wheezing. Symmetrical chest rise. Moderately increased work of breathing. Cardiac: RRR, -mrg. Radial pulses intact and symmetrical. Abdominal: soft, non-tender but distended with +fluid wave. Anasarca. LE: 3+ pitting edema throughout entire lower extremities - anasarca. Skin: spider angiomas present on shoulders and chest. Results & Data Results & Data ([facility]) Vital Signs (Past 12 Hours) Vital Signs Temp Pulse Pulse Resp BP BP Pulse Ox 04/10/22 05:47 109 H 32 H 91 04/10/22 05:45 109 H 31 H 04/10/22 05:41 80/50 L 04/10/22 05:41 111 H 31 H 04/10/22 05:36 75/63 L 04/10/22 05:36 111 H 31 H 04/10/22 05:31 110 H 31 H 90 04/10/22 05:30 111 H 32 H 90 04/10/22 05:26 111 H 33 H 91 04/10/22 05:21 110 H 32 H 91 04/10/22 05:21 50/33 L 04/10/22 05:15 112 H 33 H 93 04/10/22 05:06 112 H 31 H 90 04/10/22 05:01 78/63 L 04/10/22 05:01 113 H 31 H 04/10/22 05:00 113 H 30 H 90 04/10/22 04:56 58/42 L 04/10/22 04:56 113 H 32 H 04/10/22 04:51 97/67 L 04/10/22 04:51 113 H 31 H 04/10/22 04:45 113 H 30 H 90 04/10/22 04:41 73/50 L 04/10/22 04:41 114 H 31 H 90 04/10/22 04:36 114 H 30 H 04/10/22 04:36 62/40 L 04/10/22 04:32 114 H 31 H 04/10/22 04:32 94/49 L 04/10/22 04:30 114 H 28 H 90 04/10/22 04:26 74/62 L 04/10/22 04:26 115 H 30 H 04/10/22 04:24 107/51 L 04/10/22 04:24 114 H 31 H 04/10/22 04:15 114 H 32 H 93 04/10/22 04:00 115 H 30 H 90 04/10/22 03:46 76/60 L 04/10/22 03:46 115 H 31 H 04/10/22 03:45 115 H 30 H 90 04/10/22 04:00 37.2 C 04/10/22 03:30 114 H 34 H 04/10/22 03:17 106/65 04/10/22 03:17 115 H 27 H 93 04/10/22 03:15 114 H 35 H 91 04/10/22 03:00 114 H 27 H 90 04/10/22 02:46 117 H 29 H 91 04/10/22 02:45 117 H 28 H 91 04/10/22 02:36 113/49 L 04/10/22 02:36 116 H 30 H 90 04/10/22 02:30 117 H 30 H 04/10/22 02:16 115/46 L 04/10/22 02:16 116 H 29 H 92 04/10/22 02:15 118 H 28 H 92 04/10/22 02:02 116 H 29 H 90 04/10/22 02:00 116 H 28 H 91 04/10/22 01:54 86/55 L 04/10/22 01:54 117 H 26 H 91 04/10/22 01:51 73/51 L 04/10/22 01:51 117 H 31 H 90 04/10/22 01:45 117 H 31 H 91 04/10/22 01:45 75/48 L 04/10/22 01:42 94/56 L 04/10/22 01:42 115 H 30 H 04/10/22 01:30 109 H 35 H 93 04/10/22 01:15 115 H 34 H 93 04/10/22 01:01 115 H 28 H 95 04/10/22 01:00 115 H 29 H 95 04/10/22 00:46 115 H 31 H 94 04/10/22 00:46 63/38 L 04/10/22 00:45 114 H 28 H 93 04/10/22 00:38 115 H 31 H 88 L 04/10/22 00:38 81/34 L 04/10/22 00:30 113 H 28 H 07/14/22 00:26 114 H 33 H 94 04/10/22 00:23 114 H 31 H 92 04/10/22 00:20 113 H 29 H 96 04/10/22 00:16 113 H 25 H 95 04/10/22 00:16 84/57 L 04/10/22 00:15 113 H 30 H 98 04/10/22 00:08 120/63 04/10/22 00:08 113 H 28 H 04/10/22 02:00 37.2 C 04/09/22 23:00 04/09/22 23:01 114 H 04/09/22 23:00 37.5 C 04/10/22 00:00 113 H 30 H 97 04/09/22 23:54 113 H 26 H 93 04/09/22 23:54 87/51 L 04/09/22 23:45 113 H 27 H 93 04/09/22 23:30 113 H 28 H 93 04/09/22 23:16 113 H 28 H 94 04/09/22 23:16 103/48 L 04/09/22 23:15 114 H 33 H 95 04/09/22 22:56 77/48 L 04/09/22 22:56 115 H 17 04/09/22 22:39 117 H 22 91 04/09/22 22:39 69/44 L 04/09/22 22:30 116 H 21 91 04/09/22 22:30 76/58 L 04/09/22 23:51 37.5 C 112 H 24 87/51 L 97 04/09/22 23:21 37.1 C 117 H 22 77/50 L 92 04/09/22 23:10 114 H 24 92/36 L 92 04/09/22 23:00 20 92/36 L 92 04/09/22 22:15 115 H 22 77/50 L 92 04/09/22 22:00 115 H 26 H 79/47 L 92 04/09/22 21:48 37.1 C 117 H 24 82/58 L 92 04/09/22 21:46 24 93 04/09/22 21:30 116 H 24 100/40 L 93 04/09/22 21:10 37.1 C 117 H 24 99/58 L 93 04/09/22 21:07 37.1 C 119 H 24 99/58 L 93 04/09/22 21:03 37.1 C 118 H 24 99/58 L 93 04/09/22 20:55 37.8 C H 118 H 24 100/71 94 04/09/22 20:35 37.8 C H 120 H 24 97/81 L 94 04/09/22 20:19 120 H 24 82/68 L 94 04/09/22 20:09 24 94 04/09/22 20:05 37.9 C H 117 H 22 95/67 L 94 04/09/22 19:50 37.8 C H 115 H 22 91/72 L 96 04/09/22 19:25 37.8 C H 114 H 22 53/42 L 94 04/09/22 19:29 36.9 C 113 H 22 75/29 L 95 O2 Del Method O2 Flow Rate 04/10/22 05:47 04/10/22 05:45 04/10/22 05:41 04/10/22 05:41 04/10/22 05:36 04/10/22 05:36 04/10/22 05:31 04/10/22 05:30 04/10/22 05:26 04/10/22 05:21 04/10/22 05:21 04/10/22 05:15 04/10/22 05:06 04/10/22 05:01 04/10/22 05:01 04/10/22 05:00 04/10/22 04:56 04/10/22 04:56 04/10/22 04:51 04/10/22 04:51 04/10/22 04:45 04/10/22 04:41 04/10/22 04:41 4 04/10/22 04:36 04/10/22 04:36 04/10/22 04:32 04/10/22 04:32 04/10/22 04:30 04/10/22 04:26 04/10/22 04:26 04/10/22 04:24 04/10/22 04:24 04/10/22 04:15 04/10/22 04:00 04/10/22 03:46 04/10/22 03:46 04/10/22 03:45 04/10/22 04:00 04/10/22 03:30 04/10/22 03:17 04/10/22 03:17 04/10/22 03:15 04/10/22 03:00 04/10/22 02:46 04/10/22 02:45 04/10/22 02:36 04/10/22 02:36 04/10/22 02:30 04/10/22 02:16 04/10/22 02:16 04/10/22 02:15 04/10/22 02:02 04/10/22 02:00 04/10/22 01:54 04/10/22 01:54 04/10/22 01:51 04/10/22 01:51 04/10/22 01:45 04/10/22 01:45 04/10/22 01:42 04/10/22 01:42 04/10/22 01:30 04/10/22 01:15 04/10/22 01:01 04/10/22 01:00 Nasal Cannula 6 04/10/22 00:46 04/10/22 00:46 04/10/22 00:45 04/10/22 00:38 Nasal Cannula 4 04/10/22 00:38 04/10/22 00:30 04/10/22 00:26 04/10/22 00:23 04/10/22 00:20 04/10/22 00:16 04/10/22 00:16 04/10/22 00:15 04/10/22 00:08 04/10/22 00:08 04/10/22 02:00 04/09/22 23:00 Nasal Cannula 4 04/09/22 23:01 04/09/22 23:00 04/10/22 00:00 04/09/22 23:54 04/09/22 23:54 04/09/22 23:45 04/09/22 23:30 04/09/22 23:16 04/09/22 23:16 04/09/22 23:15 04/09/22 22:56 04/09/22 22:56 04/09/22 22:39 04/09/22 22:39 04/09/22 22:30 04/09/22 22:30 04/09/22 23:51 4 04/09/22 23:21 Nasal Cannula 4 04/09/22 23:10 04/09/22 23:00 Nasal Cannula 5 04/09/22 22:15 Nasal Cannula 4 04/09/22 22:00 Nasal Cannula 4 04/09/22 21:48 Nasal Cannula 4 04/09/22 21:46 Nasal Cannula 4 04/09/22 21:30 Nasal Cannula 4 04/09/22 21:10 4 04/09/22 21:07 04/09/22 21:03 Nasal Cannula 4 04/09/22 20:55 4 04/09/22 20:35 4 04/09/22 20:19 Nasal Cannula 4 04/09/22 20:09 Nasal Cannula 4 04/09/22 20:05 4 04/09/22 19:50 04/09/22 19:25 4 04/09/22 19:29 4 Laboratory Results 04/10/22 04/10/22 04/10/22 Range/Units 04:02 04:02 04:02 WBC 2.13 L (4.8-10.8) K/ul RBC 2.54 L (3.93-5.22) M/uL Hgb 9.1 L (12.0-16.0) g/dl POC Hgb (12.0-16.0) g/dl Hct 28.7 L (34.1-44.9) % POC Hct (37-47) % MCV 113.0 H (80.0-100.0) fL MCH 35.8 H (25.0-34.0) pg MCHC 31.7 L (32.0-36.0) g/dL RDW Std Deviation 90.3 H (36.4-46.3) fL RDW Coeff of Mitesh 22.4 H (11.5-14.5) % Plt Count 49 L (130-400) K/uL MPV 10.7 (9.4-12.3) fL Absolute Nucleated RBC 2.49 H (0-0) K/uL Nucleated RBC % (auto) 116.9 % Neutrophils % (Manual) 27 % Lymphocytes % (Manual) 10 % Monocytes % (Manual) 14 % Eosinophils % (Manual) 10 % Basophils % (Manual) 3 % Metamyelocytes % (Man) 25 % Myelocytes % (Man) 11 % Neutrophils # (Manual) 0.58 L (1.4-6.5) K/uL Total Absolute Neuts 0.58 L* (1.4-6.5) K/uL Lymphocytes # (Manual) 0.21 L (1.2-3.4) K/uL Total Abs Lymphocytes 0.21 L (1.2-3.4) K/uL Monocytes # (Manual) 0.30 (0.24-0.82) K/uL Eosinophils # (Manual) 0.21 (0-0.50) K/uL Basophils # (Manual) 0.06 (0-0.2) K/uL Metamyelocytes # (Man) 0.53 H (0-0) K/uL Myelocytes # (Manual) 0.23 H (0-0) K/uL Platelet Estimate (Normal) Macrocytosis Echinocytes Acanthocytes (Spur) PT 31.0 H (9.0-12.0) Seconds INR 3.1 H (0.9-1.1) APTT (21.0-31.0) Seconds PTT Ratio Sample Site POC pH (7.35-7.45) POC pCO2 (35-46) mmHg POC pO2 (80-95) mmHg POC HCO3 (19-24) mio/L POC Base Excess (-9-1.8) mio/L ABG pH (7.35-7.45) ABG pH (Temp Correct) (7.35-7.45) ABG pCO2 (35-46) mmHg ABG pCO2 (Temp Corrct (35-46) mmHg ABG pO2 (80-95) mmHg POC ABG pO2 at Pt Temp ABG HCO3 (19-24) mmol/L POC ABG O2 Sat (90-95) % ABG O2 Saturation (90-95) % ABG Base Excess (-9-1.8) mEq/L Ramin Test (Pos) VBG pH (7.36-7.41) VBG pCO2 (38-50) mmHg VBG pO2 mmHg VBG HCO3 mmol/L VBG O2 Saturation % VBG Base Excess mEq/L Oxygen Given O2 Delivery Device POC Sodium (135-144) mmol/L Sodium 129 L (136-145) mmol/L POC Potassium (3.3-5.0) mmol/L Potassium 4.0 (3.5-5.1) mmol/L POC Chloride (101-112) mmol/L Chloride 92 L (98-107) mmol/L Carbon Dioxide 17 L (21-32) mmol/L POC Total CO2 (24-31) mmol/L Anion Gap 20 H (3-11) POC Anion Gap (16-25) mmol/L POC BUN (7-18) mg/dl BUN 33 H (6-23) mg/dl Creatinine 2.31 H (0.6-1.2) mg/dl POC Creatinine (0.6-1.3) mg/dl Est Cr Clr Drug Dosing 31.3 ml/min Est GFR ( Amer) 25.1 ml/min Est GFR (Non-Af Amer) 21.6 ml/min BUN/Creatinine Ratio 14.3 (10-20) Glucose 69 L (70-99(Fasting)) mg/dl POC Glucose (70-99) mg/dl POC Glucose (other) (70-99) mg/dl Lactate Calcium 8.6 (8.5-10.1) mg/dl POC Ioniz Calcium Memo (1.12-1.32) mmol/l Phosphorus 5.8 H (2.5-4.9) mg/dl Magnesium 1.9 (1.7-2.4) mg/dl Total Bilirubin 17.2 H (0.2-1.0) mg/dl Direct Bilirubin 8.9 H (0-0.2) mg/dl AST 82 H (13-39) U/L ALT 32 (7-52) U/L Alkaline Phosphatase 53 (34-104) U/L Ammonia Troponin I High Sens (0-14) pg/ml Total Protein 5.7 L (6.0-8.3) gm/dl Albumin 3.1 L (3.4-5.0) gm/dl Globulin (2.5-4.0) gm/dl Albumin/Globulin Ratio (0.9-2) Procalcitonin (0-0.5) ng/ml Random Cortisol mcg/dl Fluid Neutrophils % % Fluid Lymphocytes % % Fluid Meso/Macro/Osage % % Fluid Comment Peritoneal Color Peritoneal Appearance Peritoneal WBC (0-300) /ul Peritoneal RBC /uL Peritoneal Tot Protein gm/dl Peritoneal Albumin Nasal Screen MRSA (PCR) (Negative) SARS-CoV-2, RNA, NAAT (NEGATIVE) Bld Cult ID Panel PCR (NotDetected) Blood Type Antibody Screen Crossmatch 04/10/22 04/10/22 04/10/22 Range/Units 02:02 00:45 00:41 WBC (4.8-10.8) K/ul RBC (3.93-5.22) M/uL Hgb (12.0-16.0) g/dl POC Hgb 9.5 L (12.0-16.0) g/dl Hct (34.1-44.9) % POC Hct 28 L (37-47) % MCV (80.0-100.0) fL MCH (25.0-34.0) pg MCHC (32.0-36.0) g/dL RDW Std Deviation (36.4-46.3) fL RDW Coeff of Mitesh (11.5-14.5) % Plt Count (130-400) K/uL MPV (9.4-12.3) fL Absolute Nucleated RBC (0-0) K/uL Nucleated RBC % (auto) % Neutrophils % (Manual) % Lymphocytes % (Manual) % Monocytes % (Manual) % Eosinophils % (Manual) % Basophils % (Manual) % Metamyelocytes % (Man) % Myelocytes % (Man) % Neutrophils # (Manual) (1.4-6.5) K/uL Total Absolute Neuts (1.4-6.5) K/uL Lymphocytes # (Manual) (1.2-3.4) K/uL Total Abs Lymphocytes (1.2-3.4) K/uL Monocytes # (Manual) (0.24-0.82) K/uL Eosinophils # (Manual) (0-0.50) K/uL Basophils # (Manual) (0-0.2) K/uL Metamyelocytes # (Man) (0-0) K/uL Myelocytes # (Manual) (0-0) K/uL Platelet Estimate (Normal) Macrocytosis Echinocytes Acanthocytes (Spur) PT (9.0-12.0) Seconds INR (0.9-1.1) APTT (21.0-31.0) Seconds PTT Ratio Sample Site L Radial POC pH 7.23 L (7.35-7.45) POC pCO2 45 (35-46) mmHg POC pO2 72 L (80-95) mmHg POC HCO3 19 (19-24) mio/L POC Base Excess -9.0 (-9-1.8) mio/L ABG pH 7.19 L* (7.35-7.45) ABG pH (Temp Correct) 7.222 L (7.35-7.45) ABG pCO2 35 (35-46) mmHg ABG pCO2 (Temp Corrct 46 (35-46) mmHg ABG pO2 91 (80-95) mmHg POC ABG pO2 at Pt Temp 75 ABG HCO3 13 L (19-24) mmol/L POC ABG O2 Sat 91.0 (90-95) % ABG O2 Saturation 97.6 H (90-95) % ABG Base Excess -13.8 L (-9-1.8) mEq/L Ramin Test NA POS (Pos) VBG pH (7.36-7.41) VBG pCO2 (38-50) mmHg VBG pO2 mmHg VBG HCO3 mmol/L VBG O2 Saturation % VBG Base Excess mEq/L Oxygen Given 4 O2 Delivery Device Cannula POC Sodium 126 L (135-144) mmol/L Sodium (136-145) mmol/L POC Potassium 5.5 H (3.3-5.0) mmol/L Potassium (3.5-5.1) mmol/L POC Chloride (101-112) mmol/L Chloride (98-107) mmol/L Carbon Dioxide (21-32) mmol/L POC Total CO2 20 L (24-31) mmol/L Anion Gap (3-11) POC Anion Gap (16-25) mmol/L POC BUN (7-18) mg/dl BUN (6-23) mg/dl Creatinine (0.6-1.2) mg/dl POC Creatinine (0.6-1.3) mg/dl Est Cr Clr Drug Dosing ml/min Est GFR ( Amer) ml/min Est GFR (Non-Af Amer) ml/min BUN/Creatinine Ratio (10-20) Glucose (70-99(Fasting)) mg/dl POC Glucose (70-99) mg/dl POC Glucose (other) (70-99) mg/dl Lactate TNP Calcium (8.5-10.1) mg/dl POC Ioniz Calcium Memo (1.12-1.32) mmol/l Phosphorus (2.5-4.9) mg/dl Magnesium (1.7-2.4) mg/dl Total Bilirubin (0.2-1.0) mg/dl Direct Bilirubin (0-0.2) mg/dl AST (13-39) U/L ALT (7-52) U/L Alkaline Phosphatase (34-104) U/L Ammonia Troponin I High Sens (0-14) pg/ml Total Protein (6.0-8.3) gm/dl Albumin (3.4-5.0) gm/dl Globulin (2.5-4.0) gm/dl Albumin/Globulin Ratio (0.9-2) Procalcitonin (0-0.5) ng/ml Random Cortisol mcg/dl Fluid Neutrophils % % Fluid Lymphocytes % % Fluid Meso/Macro/Osage % % Fluid Comment Peritoneal Color Peritoneal Appearance Peritoneal WBC (0-300) /ul Peritoneal RBC /uL Peritoneal Tot Protein gm/dl Peritoneal Albumin Nasal Screen MRSA (PCR) (Negative) SARS-CoV-2, RNA, NAAT (NEGATIVE) Bld Cult ID Panel PCR (NotDetected) Blood Type Antibody Screen Crossmatch 04/10/22 04/10/22 04/10/22 Range/Units 00:41 00:41 00:41 WBC (4.8-10.8) K/ul RBC (3.93-5.22) M/uL Hgb 10.0 L (12.0-16.0) g/dl POC Hgb (12.0-16.0) g/dl Hct 30.6 L (34.1-44.9) % POC Hct (37-47) % MCV (80.0-100.0) fL MCH (25.0-34.0) pg MCHC (32.0-36.0) g/dL RDW Std Deviation (36.4-46.3) fL RDW Coeff of Mitesh (11.5-14.5) % Plt Count (130-400) K/uL MPV (9.4-12.3) fL Absolute Nucleated RBC (0-0) K/uL Nucleated RBC % (auto) % Neutrophils % (Manual) % Lymphocytes % (Manual) % Monocytes % (Manual) % Eosinophils % (Manual) % Basophils % (Manual) % Metamyelocytes % (Man) % Myelocytes % (Man) % Neutrophils # (Manual) (1.4-6.5) K/uL Total Absolute Neuts (1.4-6.5) K/uL Lymphocytes # (Manual) (1.2-3.4) K/uL Total Abs Lymphocytes (1.2-3.4) K/uL Monocytes # (Manual) (0.24-0.82) K/uL Eosinophils # (Manual) (0-0.50) K/uL Basophils # (Manual) (0-0.2) K/uL Metamyelocytes # (Man) (0-0) K/uL Myelocytes # (Manual) (0-0) K/uL Platelet Estimate (Normal) Macrocytosis Echinocytes Acanthocytes (Spur) PT (9.0-12.0) Seconds INR (0.9-1.1) APTT (21.0-31.0) Seconds PTT Ratio Sample Site POC pH (7.35-7.45) POC pCO2 (35-46) mmHg POC pO2 (80-95) mmHg POC HCO3 (19-24) mio/L POC Base Excess (-9-1.8) mio/L ABG pH (7.35-7.45) ABG pH (Temp Correct) (7.35-7.45) ABG pCO2 (35-46) mmHg ABG pCO2 (Temp Corrct (35-46) mmHg ABG pO2 (80-95) mmHg POC ABG pO2 at Pt Temp ABG HCO3 (19-24) mmol/L POC ABG O2 Sat (90-95) % ABG O2 Saturation (90-95) % ABG Base Excess (-9-1.8) mEq/L Ramin Test (Pos) VBG pH (7.36-7.41) VBG pCO2 (38-50) mmHg VBG pO2 mmHg VBG HCO3 mmol/L VBG O2 Saturation % VBG Base Excess mEq/L Oxygen Given O2 Delivery Device POC Sodium (135-144) mmol/L Sodium 124 L (136-145) mmol/L POC Potassium (3.3-5.0) mmol/L Potassium 4.4 (3.5-5.1) mmol/L POC Chloride (101-112) mmol/L Chloride 94 L (98-107) mmol/L Carbon Dioxide 14 L (21-32) mmol/L POC Total CO2 (24-31) mmol/L Anion Gap 16 H (3-11) POC Anion Gap (16-25) mmol/L POC BUN (7-18) mg/dl BUN 33 H (6-23) mg/dl Creatinine 2.27 H D (0.6-1.2) mg/dl POC Creatinine (0.6-1.3) mg/dl Est Cr Clr Drug Dosing 31.9 ml/min Est GFR ( Amer) 25.6 ml/min Est GFR (Non-Af Amer) 22.1 ml/min BUN/Creatinine Ratio 14.5 (10-20) Glucose 83 (70-99(Fasting)) mg/dl POC Glucose (70-99) mg/dl POC Glucose (other) (70-99) mg/dl Lactate Calcium 8.1 L (8.5-10.1) mg/dl POC Ioniz Calcium Memo (1.12-1.32) mmol/l Phosphorus 4.6 (2.5-4.9) mg/dl Magnesium 1.8 (1.7-2.4) mg/dl Total Bilirubin (0.2-1.0) mg/dl Direct Bilirubin (0-0.2) mg/dl AST (13-39) U/L ALT (7-52) U/L Alkaline Phosphatase (34-104) U/L Ammonia TNP Troponin I High Sens (0-14) pg/ml Total Protein (6.0-8.3) gm/dl Albumin (3.4-5.0) gm/dl Globulin (2.5-4.0) gm/dl Albumin/Globulin Ratio (0.9-2) Procalcitonin (0-0.5) ng/ml Random Cortisol mcg/dl Fluid Neutrophils % % Fluid Lymphocytes % % Fluid Meso/Macro/[place] % % Fluid Comment Peritoneal Color Peritoneal Appearance Peritoneal WBC (0-300) /ul Peritoneal RBC /uL Peritoneal Tot Protein gm/dl Peritoneal Albumin Nasal Screen MRSA (PCR) (Negative) SARS-CoV-2, RNA, NAAT (NEGATIVE) Bld Cult ID Panel PCR (NotDetected) Blood Type Antibody Screen Crossmatch 04/10/22 04/09/22 04/09/22 Range/Units 00:33 23:00 23:00 WBC (4.8-10.8) K/ul RBC (3.93-5.22) M/uL Hgb (12.0-16.0) g/dl POC Hgb (12.0-16.0) g/dl Hct (34.1-44.9) % POC Hct (37-47) % MCV (80.0-100.0) fL MCH (25.0-34.0) pg MCHC (32.0-36.0) g/dL RDW Std Deviation (36.4-46.3) fL RDW Coeff of Mitesh (11.5-14.5) % Plt Count (130-400) K/uL MPV (9.4-12.3) fL Absolute Nucleated RBC (0-0) K/uL Nucleated RBC % (auto) % Neutrophils % (Manual) % Lymphocytes % (Manual) % Monocytes % (Manual) % Eosinophils % (Manual) % Basophils % (Manual) % Metamyelocytes % (Man) % Myelocytes % (Man) % Neutrophils # (Manual) (1.4-6.5) K/uL Total Absolute Neuts (1.4-6.5) K/uL Lymphocytes # (Manual) (1.2-3.4) K/uL Total Abs Lymphocytes (1.2-3.4) K/uL Monocytes # (Manual) (0.24-0.82) K/uL Eosinophils # (Manual) (0-0.50) K/uL Basophils # (Manual) (0-0.2) K/uL Metamyelocytes # (Man) (0-0) K/uL Myelocytes # (Manual) (0-0) K/uL Platelet Estimate (Normal) Macrocytosis Echinocytes Acanthocytes (Spur) PT (9.0-12.0) Seconds INR (0.9-1.1) APTT (21.0-31.0) Seconds PTT Ratio Sample Site POC pH (7.35-7.45) POC pCO2 (35-46) mmHg POC pO2 (80-95) mmHg POC HCO3 (19-24) mio/L POC Base Excess (-9-1.8) mio/L ABG pH (7.35-7.45) ABG pH (Temp Correct) (7.35-7.45) ABG pCO2 (35-46) mmHg ABG pCO2 (Temp Corrct (35-46) mmHg ABG pO2 (80-95) mmHg POC ABG pO2 at Pt Temp ABG HCO3 (19-24) mmol/L POC ABG O2 Sat (90-95) % ABG O2 Saturation (90-95) % ABG Base Excess (-9-1.8) mEq/L Ramin Test (Pos) VBG pH (7.36-7.41) VBG pCO2 (38-50) mmHg VBG pO2 mmHg VBG HCO3 mmol/L VBG O2 Saturation % VBG Base Excess mEq/L Oxygen Given O2 Delivery Device POC Sodium (135-144) mmol/L Sodium (136-145) mmol/L POC Potassium (3.3-5.0) mmol/L Potassium (3.5-5.1) mmol/L POC Chloride (101-112) mmol/L Chloride (98-107) mmol/L Carbon Dioxide (21-32) mmol/L POC Total CO2 (24-31) mmol/L Anion Gap (3-11) POC Anion Gap (16-25) mmol/L POC BUN (7-18) mg/dl BUN (6-23) mg/dl Creatinine (0.6-1.2) mg/dl POC Creatinine (0.6-1.3) mg/dl Est Cr Clr Drug Dosing ml/min Est GFR ( Amer) ml/min Est GFR (Non-Af Amer) ml/min BUN/Creatinine Ratio (10-20) Glucose (70-99(Fasting)) mg/dl POC Glucose (70-99) mg/dl POC Glucose (other) (70-99) mg/dl Lactate Calcium (8.5-10.1) mg/dl POC Ioniz Calcium Memo (1.12-1.32) mmol/l Phosphorus (2.5-4.9) mg/dl Magnesium (1.7-2.4) mg/dl Total Bilirubin (0.2-1.0) mg/dl Direct Bilirubin (0-0.2) mg/dl AST (13-39) U/L ALT (7-52) U/L Alkaline Phosphatase (34-104) U/L Ammonia Troponin I High Sens 66.7 H* D (0-14) pg/ml Total Protein (6.0-8.3) gm/dl Albumin (3.4-5.0) gm/dl Globulin (2.5-4.0) gm/dl Albumin/Globulin Ratio (0.9-2) Procalcitonin (0-0.5) ng/ml Random Cortisol mcg/dl Fluid Neutrophils % % Fluid Lymphocytes % % Fluid Meso/Macro/[place] % % Fluid Comment Peritoneal Color Peritoneal Appearance Peritoneal WBC (0-300) /ul Peritoneal RBC /uL Peritoneal Tot Protein < 3.0 gm/dl Peritoneal Albumin < 1.5 Cancelled Nasal Screen MRSA (PCR) (Negative) SARS-CoV-2, RNA, NAAT (NEGATIVE) Bld Cult ID Panel PCR (NotDetected) Blood Type Antibody Screen Crossmatch 04/09/22 04/09/22 04/09/22 Range/Units 23:00 23:00 21:23 WBC (4.8-10.8) K/ul RBC (3.93-5.22) M/uL Hgb (12.0-16.0) g/dl POC Hgb (12.0-16.0) g/dl Hct (34.1-44.9) % POC Hct (37-47) % MCV (80.0-100.0) fL MCH (25.0-34.0) pg MCHC (32.0-36.0) g/dL RDW Std Deviation (36.4-46.3) fL RDW Coeff of Mitesh (11.5-14.5) % Plt Count (130-400) K/uL MPV (9.4-12.3) fL Absolute Nucleated RBC (0-0) K/uL Nucleated RBC % (auto) % Neutrophils % (Manual) % Lymphocytes % (Manual) % Monocytes % (Manual) % Eosinophils % (Manual) % Basophils % (Manual) % Metamyelocytes % (Man) % Myelocytes % (Man) % Neutrophils # (Manual) (1.4-6.5) K/uL Total Absolute Neuts (1.4-6.5) K/uL Lymphocytes # (Manual) (1.2-3.4) K/uL Total Abs Lymphocytes (1.2-3.4) K/uL Monocytes # (Manual) (0.24-0.82) K/uL Eosinophils # (Manual) (0-0.50) K/uL Basophils # (Manual) (0-0.2) K/uL Metamyelocytes # (Man) (0-0) K/uL Myelocytes # (Manual) (0-0) K/uL Platelet Estimate (Normal) Macrocytosis Echinocytes Acanthocytes (Spur) PT (9.0-12.0) Seconds INR (0.9-1.1) APTT (21.0-31.0) Seconds PTT Ratio Sample Site POC pH (7.35-7.45) POC pCO2 (35-46) mmHg POC pO2 (80-95) mmHg POC HCO3 (19-24) mio/L POC Base Excess (-9-1.8) mio/L ABG pH (7.35-7.45) ABG pH (Temp Correct) (7.35-7.45) ABG pCO2 (35-46) mmHg ABG pCO2 (Temp Corrct (35-46) mmHg ABG pO2 (80-95) mmHg POC ABG pO2 at Pt Temp ABG HCO3 (19-24) mmol/L POC ABG O2 Sat (90-95) % ABG O2 Saturation (90-95) % ABG Base Excess (-9-1.8) mEq/L Ramin Test (Pos) VBG pH 7.21 L (7.36-7.41) VBG pCO2 37 L (38-50) mmHg VBG pO2 58 mmHg VBG HCO3 15 mmol/L VBG O2 Saturation 85.4 % VBG Base Excess -12.3 mEq/L Oxygen Given O2 Delivery Device POC Sodium (135-144) mmol/L Sodium (136-145) mmol/L POC Potassium (3.3-5.0) mmol/L Potassium (3.5-5.1) mmol/L POC Chloride (101-112) mmol/L Chloride (98-107) mmol/L Carbon Dioxide (21-32) mmol/L POC Total CO2 (24-31) mmol/L Anion Gap (3-11) POC Anion Gap (16-25) mmol/L POC BUN (7-18) mg/dl BUN (6-23) mg/dl Creatinine (0.6-1.2) mg/dl POC Creatinine (0.6-1.3) mg/dl Est Cr Clr Drug Dosing ml/min Est GFR ( Amer) ml/min Est GFR (Non-Af Amer) ml/min BUN/Creatinine Ratio (10-20) Glucose (70-99(Fasting)) mg/dl POC Glucose (70-99) mg/dl POC Glucose (other) (70-99) mg/dl Lactate Calcium (8.5-10.1) mg/dl POC Ioniz Calcium Memo (1.12-1.32) mmol/l Phosphorus (2.5-4.9) mg/dl Magnesium (1.7-2.4) mg/dl Total Bilirubin (0.2-1.0) mg/dl Direct Bilirubin (0-0.2) mg/dl AST (13-39) U/L ALT (7-52) U/L Alkaline Phosphatase (34-104) U/L Ammonia Troponin I High Sens (0-14) pg/ml Total Protein (6.0-8.3) gm/dl Albumin (3.4-5.0) gm/dl Globulin (2.5-4.0) gm/dl Albumin/Globulin Ratio (0.9-2) Procalcitonin (0-0.5) ng/ml Random Cortisol mcg/dl Fluid Neutrophils % 3 % Fluid Lymphocytes % 46 % Fluid Meso/Macro/Osage % 51 % Fluid Comment Peritoneal Color Yellow Peritoneal Appearance Clear Peritoneal WBC 37 (0-300) /ul Peritoneal RBC 3000 /uL Peritoneal Tot Protein gm/dl Peritoneal Albumin Nasal Screen MRSA (PCR) Negative (Negative) SARS-CoV-2, RNA, NAAT (NEGATIVE) Bld Cult ID Panel PCR (NotDetected) Blood Type Antibody Screen Crossmatch 04/09/22 04/09/22 04/09/22 Range/Units 21:23 20:15 19:09 WBC (4.8-10.8) K/ul RBC (3.93-5.22) M/uL Hgb (12.0-16.0) g/dl POC Hgb (12.0-16.0) g/dl Hct (34.1-44.9) % POC Hct (37-47) % MCV (80.0-100.0) fL MCH (25.0-34.0) pg MCHC (32.0-36.0) g/dL RDW Std Deviation (36.4-46.3) fL RDW Coeff of Mitesh (11.5-14.5) % Plt Count (130-400) K/uL MPV (9.4-12.3) fL Absolute Nucleated RBC (0-0) K/uL Nucleated RBC % (auto) % Neutrophils % (Manual) % Lymphocytes % (Manual) % Monocytes % (Manual) % Eosinophils % (Manual) % Basophils % (Manual) % Metamyelocytes % (Man) % Myelocytes % (Man) % Neutrophils # (Manual) (1.4-6.5) K/uL Total Absolute Neuts (1.4-6.5) K/uL Lymphocytes # (Manual) (1.2-3.4) K/uL Total Abs Lymphocytes (1.2-3.4) K/uL Monocytes # (Manual) (0.24-0.82) K/uL Eosinophils # (Manual) (0-0.50) K/uL Basophils # (Manual) (0-0.2) K/uL Metamyelocytes # (Man) (0-0) K/uL Myelocytes # (Manual) (0-0) K/uL Platelet Estimate (Normal) Macrocytosis Echinocytes Acanthocytes (Spur) PT (9.0-12.0) Seconds INR (0.9-1.1) APTT (21.0-31.0) Seconds PTT Ratio Sample Site POC pH (7.35-7.45) POC pCO2 (35-46) mmHg POC pO2 (80-95) mmHg POC HCO3 (19-24) mio/L POC Base Excess (-9-1.8) mio/L ABG pH (7.35-7.45) ABG pH (Temp Correct) (7.35-7.45) ABG pCO2 (35-46) mmHg ABG pCO2 (Temp Corrct (35-46) mmHg ABG pO2 (80-95) mmHg POC ABG pO2 at Pt Temp ABG HCO3 (19-24) mmol/L POC ABG O2 Sat (90-95) % ABG O2 Saturation (90-95) % ABG Base Excess (-9-1.8) mEq/L Ramin Test (Pos) VBG pH (7.36-7.41) VBG pCO2 (38-50) mmHg VBG pO2 mmHg VBG HCO3 mmol/L VBG O2 Saturation % VBG Base Excess mEq/L Oxygen Given O2 Delivery Device POC Sodium (135-144) mmol/L Sodium (136-145) mmol/L POC Potassium (3.3-5.0) mmol/L Potassium (3.5-5.1) mmol/L POC Chloride (101-112) mmol/L Chloride (98-107) mmol/L Carbon Dioxide (21-32) mmol/L POC Total CO2 (24-31) mmol/L Anion Gap (3-11) POC Anion Gap (16-25) mmol/L POC BUN (7-18) mg/dl BUN (6-23) mg/dl Creatinine (0.6-1.2) mg/dl POC Creatinine (0.6-1.3) mg/dl Est Cr Clr Drug Dosing ml/min Est GFR ( Amer) ml/min Est GFR (Non-Af Amer) ml/min BUN/Creatinine Ratio (10-20) Glucose (70-99(Fasting)) mg/dl POC Glucose 76 70 (70-99) mg/dl POC Glucose (other) (70-99) mg/dl Lactate Calcium (8.5-10.1) mg/dl POC Ioniz Calcium Memo (1.12-1.32) mmol/l Phosphorus (2.5-4.9) mg/dl Magnesium (1.7-2.4) mg/dl Total Bilirubin (0.2-1.0) mg/dl Direct Bilirubin (0-0.2) mg/dl AST (13-39) U/L ALT (7-52) U/L Alkaline Phosphatase (34-104) U/L Ammonia Cancelled Troponin I High Sens (0-14) pg/ml Total Protein (6.0-8.3) gm/dl Albumin (3.4-5.0) gm/dl Globulin (2.5-4.0) gm/dl Albumin/Globulin Ratio (0.9-2) Procalcitonin (0-0.5) ng/ml Random Cortisol mcg/dl Fluid Neutrophils % % Fluid Lymphocytes % % Fluid Meso/Macro/Osage % % Fluid Comment Peritoneal Color Peritoneal Appearance Peritoneal WBC (0-300) /ul Peritoneal RBC /uL Peritoneal Tot Protein gm/dl Peritoneal Albumin Nasal Screen MRSA (PCR) (Negative) SARS-CoV-2, RNA, NAAT (NEGATIVE) Bld Cult ID Panel PCR (NotDetected) Blood Type Antibody Screen Crossmatch 04/09/22 04/09/22 04/09/22 Range/Units 18:20 18:18 18:11 WBC (4.8-10.8) K/ul RBC (3.93-5.22) M/uL Hgb (12.0-16.0) g/dl POC Hgb (12.0-16.0) g/dl Hct (34.1-44.9) % POC Hct (37-47) % MCV (80.0-100.0) fL MCH (25.0-34.0) pg MCHC (32.0-36.0) g/dL RDW Std Deviation (36.4-46.3) fL RDW Coeff of Mitesh (11.5-14.5) % Plt Count (130-400) K/uL MPV (9.4-12.3) fL Absolute Nucleated RBC (0-0) K/uL Nucleated RBC % (auto) % Neutrophils % (Manual) % Lymphocytes % (Manual) % Monocytes % (Manual) % Eosinophils % (Manual) % Basophils % (Manual) % Metamyelocytes % (Man) % Myelocytes % (Man) % Neutrophils # (Manual) (1.4-6.5) K/uL Total Absolute Neuts (1.4-6.5) K/uL Lymphocytes # (Manual) (1.2-3.4) K/uL Total Abs Lymphocytes (1.2-3.4) K/uL Monocytes # (Manual) (0.24-0.82) K/uL Eosinophils # (Manual) (0-0.50) K/uL Basophils # (Manual) (0-0.2) K/uL Metamyelocytes # (Man) (0-0) K/uL Myelocytes # (Manual) (0-0) K/uL Platelet Estimate (Normal) Macrocytosis Echinocytes Acanthocytes (Spur) PT 23.9 H (9.0-12.0) Seconds INR 2.3 H (0.9-1.1) APTT (21.0-31.0) Seconds PTT Ratio Sample Site POC pH (7.35-7.45) POC pCO2 (35-46) mmHg POC pO2 (80-95) mmHg POC HCO3 (19-24) mio/L POC Base Excess (-9-1.8) mio/L ABG pH (7.35-7.45) ABG pH (Temp Correct) (7.35-7.45) ABG pCO2 (35-46) mmHg ABG pCO2 (Temp Corrct (35-46) mmHg ABG pO2 (80-95) mmHg POC ABG pO2 at Pt Temp ABG HCO3 (19-24) mmol/L POC ABG O2 Sat (90-95) % ABG O2 Saturation (90-95) % ABG Base Excess (-9-1.8) mEq/L Ramin Test (Pos) VBG pH (7.36-7.41) VBG pCO2 (38-50) mmHg VBG pO2 mmHg VBG HCO3 mmol/L VBG O2 Saturation % VBG Base Excess mEq/L Oxygen Given O2 Delivery Device POC Sodium (135-144) mmol/L Sodium (136-145) mmol/L POC Potassium (3.3-5.0) mmol/L Potassium (3.5-5.1) mmol/L POC Chloride (101-112) mmol/L Chloride (98-107) mmol/L Carbon Dioxide (21-32) mmol/L POC Total CO2 (24-31) mmol/L Anion Gap (3-11) POC Anion Gap (16-25) mmol/L POC BUN (7-18) mg/dl BUN (6-23) mg/dl Creatinine (0.6-1.2) mg/dl POC Creatinine (0.6-1.3) mg/dl Est Cr Clr Drug Dosing ml/min Est GFR ( Amer) ml/min Est GFR (Non-Af Amer) ml/min BUN/Creatinine Ratio (10-20) Glucose (70-99(Fasting)) mg/dl POC Glucose (70-99) mg/dl POC Glucose (other) (70-99) mg/dl Lactate Calcium (8.5-10.1) mg/dl POC Ioniz Calcium Memo (1.12-1.32) mmol/l Phosphorus (2.5-4.9) mg/dl Magnesium (1.7-2.4) mg/dl Total Bilirubin (0.2-1.0) mg/dl Direct Bilirubin (0-0.2) mg/dl AST (13-39) U/L ALT (7-52) U/L Alkaline Phosphatase (34-104) U/L Ammonia Troponin I High Sens (0-14) pg/ml Total Protein (6.0-8.3) gm/dl Albumin (3.4-5.0) gm/dl Globulin (2.5-4.0) gm/dl Albumin/Globulin Ratio (0.9-2) Procalcitonin (0-0.5) ng/ml Random Cortisol mcg/dl Fluid Neutrophils % % Fluid Lymphocytes % % Fluid Meso/Macro/Osage % % Fluid Comment Peritoneal Color Peritoneal Appearance Peritoneal WBC (0-300) /ul Peritoneal RBC /uL Peritoneal Tot Protein gm/dl Peritoneal Albumin Nasal Screen MRSA (PCR) (Negative) SARS-CoV-2, RNA, NAAT NEGATIVE (NEGATIVE) Bld Cult ID Panel PCR PCR Panel Negative (NotDetected) Blood Type Antibody Screen Crossmatch 04/09/22 04/09/22 04/09/22 Range/Units 18:08 18:08 18:08 WBC (4.8-10.8) K/ul RBC (3.93-5.22) M/uL Hgb (12.0-16.0) g/dl POC Hgb (12.0-16.0) g/dl Hct (34.1-44.9) % POC Hct (37-47) % MCV (80.0-100.0) fL MCH (25.0-34.0) pg MCHC (32.0-36.0) g/dL RDW Std Deviation (36.4-46.3) fL RDW Coeff of Mitesh (11.5-14.5) % Plt Count (130-400) K/uL MPV (9.4-12.3) fL Absolute Nucleated RBC (0-0) K/uL Nucleated RBC % (auto) % Neutrophils % (Manual) % Lymphocytes % (Manual) % Monocytes % (Manual) % Eosinophils % (Manual) % Basophils % (Manual) % Metamyelocytes % (Man) % Myelocytes % (Man) % Neutrophils # (Manual) (1.4-6.5) K/uL Total Absolute Neuts (1.4-6.5) K/uL Lymphocytes # (Manual) (1.2-3.4) K/uL Total Abs Lymphocytes (1.2-3.4) K/uL Monocytes # (Manual) (0.24-0.82) K/uL Eosinophils # (Manual) (0-0.50) K/uL Basophils # (Manual) (0-0.2) K/uL Metamyelocytes # (Man) (0-0) K/uL Myelocytes # (Manual) (0-0) K/uL Platelet Estimate (Normal) Macrocytosis Echinocytes Acanthocytes (Spur) PT (9.0-12.0) Seconds INR (0.9-1.1) APTT (21.0-31.0) Seconds PTT Ratio Sample Site POC pH (7.35-7.45) POC pCO2 (35-46) mmHg POC pO2 (80-95) mmHg POC HCO3 (19-24) mio/L POC Base Excess (-9-1.8) mio/L ABG pH (7.35-7.45) ABG pH (Temp Correct) (7.35-7.45) ABG pCO2 (35-46) mmHg ABG pCO2 (Temp Corrct (35-46) mmHg ABG pO2 (80-95) mmHg POC ABG pO2 at Pt Temp ABG HCO3 (19-24) mmol/L POC ABG O2 Sat (90-95) % ABG O2 Saturation (90-95) % ABG Base Excess (-9-1.8) mEq/L Ramin Test (Pos) VBG pH (7.36-7.41) VBG pCO2 (38-50) mmHg VBG pO2 mmHg VBG HCO3 mmol/L VBG O2 Saturation % VBG Base Excess mEq/L Oxygen Given O2 Delivery Device POC Sodium (135-144) mmol/L Sodium (136-145) mmol/L POC Potassium (3.3-5.0) mmol/L Potassium (3.5-5.1) mmol/L POC Chloride (101-112) mmol/L Chloride (98-107) mmol/L Carbon Dioxide (21-32) mmol/L POC Total CO2 (24-31) mmol/L Anion Gap (3-11) POC Anion Gap (16-25) mmol/L POC BUN (7-18) mg/dl BUN (6-23) mg/dl Creatinine (0.6-1.2) mg/dl POC Creatinine (0.6-1.3) mg/dl Est Cr Clr Drug Dosing ml/min Est GFR ( Amer) ml/min Est GFR (Non-Af Amer) ml/min BUN/Creatinine Ratio (10-20) Glucose (70-99(Fasting)) mg/dl POC Glucose (70-99) mg/dl POC Glucose (other) (70-99) mg/dl Lactate Calcium (8.5-10.1) mg/dl POC Ioniz Calcium Memo (1.12-1.32) mmol/l Phosphorus (2.5-4.9) mg/dl Magnesium (1.7-2.4) mg/dl Total Bilirubin (0.2-1.0) mg/dl Direct Bilirubin (0-0.2) mg/dl AST (13-39) U/L ALT (7-52) U/L Alkaline Phosphatase (34-104) U/L Ammonia Troponin I High Sens 33.8 H (0-14) pg/ml Total Protein (6.0-8.3) gm/dl Albumin (3.4-5.0) gm/dl Globulin (2.5-4.0) gm/dl Albumin/Globulin Ratio (0.9-2) Procalcitonin 4.18 H (0-0.5) ng/ml Random Cortisol > 60.00 mcg/dl Fluid Neutrophils % % Fluid Lymphocytes % % Fluid Meso/Macro/[place]age % % Fluid Comment Peritoneal Color Peritoneal Appearance Peritoneal WBC (0-300) /ul Peritoneal RBC /uL Peritoneal Tot Protein gm/dl Peritoneal Albumin Nasal Screen MRSA (PCR) (Negative) SARS-CoV-2, RNA, NAAT (NEGATIVE) Bld Cult ID Panel PCR (NotDetected) Blood Type Antibody Screen Crossmatch 04/09/22 04/09/22 04/09/22 Range/Units 18:08 18:08 18:05 WBC (4.8-10.8) K/ul RBC (3.93-5.22) M/uL Hgb (12.0-16.0) g/dl POC Hgb 7.8 L (12.0-16.0) g/dl Hct (34.1-44.9) % POC Hct 23 L (37-47) % MCV (80.0-100.0) fL MCH (25.0-34.0) pg MCHC (32.0-36.0) g/dL RDW Std Deviation (36.4-46.3) fL RDW Coeff of Mitesh (11.5-14.5) % Plt Count (130-400) K/uL MPV (9.4-12.3) fL Absolute Nucleated RBC (0-0) K/uL Nucleated RBC % (auto) % Neutrophils % (Manual) % Lymphocytes % (Manual) % Monocytes % (Manual) % Eosinophils % (Manual) % Basophils % (Manual) % Metamyelocytes % (Man) % Myelocytes % (Man) % Neutrophils # (Manual) (1.4-6.5) K/uL Total Absolute Neuts (1.4-6.5) K/uL Lymphocytes # (Manual) (1.2-3.4) K/uL Total Abs Lymphocytes (1.2-3.4) K/uL Monocytes # (Manual) (0.24-0.82) K/uL Eosinophils # (Manual) (0-0.50) K/uL Basophils # (Manual) (0-0.2) K/uL Metamyelocytes # (Man) (0-0) K/uL Myelocytes # (Manual) (0-0) K/uL Platelet Estimate (Normal) Macrocytosis Echinocytes Acanthocytes (Spur) PT (9.0-12.0) Seconds INR (0.9-1.1) APTT (21.0-31.0) Seconds PTT Ratio Sample Site POC pH (7.35-7.45) POC pCO2 (35-46) mmHg POC pO2 (80-95) mmHg POC HCO3 (19-24) mio/L POC Base Excess (-9-1.8) mio/L ABG pH (7.35-7.45) ABG pH (Temp Correct) (7.35-7.45) ABG pCO2 (35-46) mmHg ABG pCO2 (Temp Corrct (35-46) mmHg ABG pO2 (80-95) mmHg POC ABG pO2 at Pt Temp ABG HCO3 (19-24) mmol/L POC ABG O2 Sat (90-95) % ABG O2 Saturation (90-95) % ABG Base Excess (-9-1.8) mEq/L Ramin Test (Pos) VBG pH (7.36-7.41) VBG pCO2 (38-50) mmHg VBG pO2 mmHg VBG HCO3 mmol/L VBG O2 Saturation % VBG Base Excess mEq/L Oxygen Given O2 Delivery Device POC Sodium 131 L (135-144) mmol/L Sodium (136-145) mmol/L POC Potassium 3.7 (3.3-5.0) mmol/L Potassium (3.5-5.1) mmol/L POC Chloride 98 L (101-112) mmol/L Chloride (98-107) mmol/L Carbon Dioxide (21-32) mmol/L POC Total CO2 14 L (24-31) mmol/L Anion Gap (3-11) POC Anion Gap 24.0 (16-25) mmol/L POC BUN 23 H (7-18) mg/dl BUN (6-23) mg/dl Creatinine (0.6-1.2) mg/dl POC Creatinine 1.6 H (0.6-1.3) mg/dl Est Cr Clr Drug Dosing ml/min Est GFR ( Amer) ml/min Est GFR (Non-Af Amer) ml/min BUN/Creatinine Ratio (10-20) Glucose (70-99(Fasting)) mg/dl POC Glucose (70-99) mg/dl POC Glucose (other) 59 L* (70-99) mg/dl Lactate Cancelled Calcium (8.5-10.1) mg/dl POC Ioniz Calcium Memo 1.01 L (1.12-1.32) mmol/l Phosphorus (2.5-4.9) mg/dl Magnesium (1.7-2.4) mg/dl Total Bilirubin (0.2-1.0) mg/dl Direct Bilirubin (0-0.2) mg/dl AST (13-39) U/L ALT (7-52) U/L Alkaline Phosphatase (34-104) U/L Ammonia Troponin I High Sens (0-14) pg/ml Total Protein (6.0-8.3) gm/dl Albumin (3.4-5.0) gm/dl Globulin (2.5-4.0) gm/dl Albumin/Globulin Ratio (0.9-2) Procalcitonin (0-0.5) ng/ml Random Cortisol mcg/dl Fluid Neutrophils % % Fluid Lymphocytes % % Fluid Meso/Macro/[place] % % Fluid Comment Peritoneal Color Peritoneal Appearance Peritoneal WBC (0-300) /ul Peritoneal RBC /uL Peritoneal Tot Protein gm/dl Peritoneal Albumin Nasal Screen MRSA (PCR) (Negative) SARS-CoV-2, RNA, NAAT (NEGATIVE) Bld Cult ID Panel PCR (NotDetected) Blood Type A Negative Antibody Screen NEGATIVE Crossmatch See Detail 04/09/22 04/09/22 04/09/22 Range/Units 16:05 16:05 16:05 WBC 1.97 L (4.8-10.8) K/ul RBC 2.26 L (3.93-5.22) M/uL Hgb 8.4 L (12.0-16.0) g/dl POC Hgb (12.0-16.0) g/dl Hct 26.4 L (34.1-44.9) % POC Hct (37-47) % MCV 116.8 H (80.0-100.0) fL MCH 37.2 H (25.0-34.0) pg MCHC 31.8 L (32.0-36.0) g/dL RDW Std Deviation 74.5 H (36.4-46.3) fL RDW Coeff of Mitesh 18.0 H (11.5-14.5) % Plt Count 50 L (130-400) K/uL MPV 12.8 H (9.4-12.3) fL Absolute Nucleated RBC 0.52 H (0-0) K/uL Nucleated RBC % (auto) 26.4 % Neutrophils % (Manual) 66 % Lymphocytes % (Manual) 7 % Monocytes % (Manual) 8 % Eosinophils % (Manual) 1 % Basophils % (Manual) % Metamyelocytes % (Man) 15 % Myelocytes % (Man) 3 % Neutrophils # (Manual) 1.30 L (1.4-6.5) K/uL Total Absolute Neuts 1.30 L (1.4-6.5) K/uL Lymphocytes # (Manual) 0.14 L (1.2-3.4) K/uL Total Abs Lymphocytes 0.14 L (1.2-3.4) K/uL Monocytes # (Manual) 0.16 L (0.24-0.82) K/uL Eosinophils # (Manual) 0.02 (0-0.50) K/uL Basophils # (Manual) (0-0.2) K/uL Metamyelocytes # (Man) 0.30 H (0-0) K/uL Myelocytes # (Manual) 0.06 H (0-0) K/uL Platelet Estimate Decreased L (Normal) Macrocytosis Present Echinocytes 1+ Acanthocytes (Spur) 2+ PT 23.4 H (9.0-12.0) Seconds INR 2.3 H (0.9-1.1) APTT 51.3 H* (21.0-31.0) Seconds PTT Ratio 1.9 Sample Site POC pH (7.35-7.45) POC pCO2 (35-46) mmHg POC pO2 (80-95) mmHg POC HCO3 (19-24) mio/L POC Base Excess (-9-1.8) mio/L ABG pH (7.35-7.45) ABG pH (Temp Correct) (7.35-7.45) ABG pCO2 (35-46) mmHg ABG pCO2 (Temp Corrct (35-46) mmHg ABG pO2 (80-95) mmHg POC ABG pO2 at Pt Temp ABG HCO3 (19-24) mmol/L POC ABG O2 Sat (90-95) % ABG O2 Saturation (90-95) % ABG Base Excess (-9-1.8) mEq/L Ramin Test (Pos) VBG pH (7.36-7.41) VBG pCO2 (38-50) mmHg VBG pO2 mmHg VBG HCO3 mmol/L VBG O2 Saturation % VBG Base Excess mEq/L Oxygen Given O2 Delivery Device POC Sodium (135-144) mmol/L Sodium 126 L (136-145) mmol/L POC Potassium (3.3-5.0) mmol/L Potassium 4.1 (3.5-5.1) mmol/L POC Chloride (101-112) mmol/L Chloride 93 L (98-107) mmol/L Carbon Dioxide 14 L (21-32) mmol/L POC Total CO2 (24-31) mmol/L Anion Gap 19 H (3-11) POC Anion Gap (16-25) mmol/L POC BUN (7-18) mg/dl BUN 31 H (6-23) mg/dl Creatinine 1.91 H (0.6-1.2) mg/dl POC Creatinine (0.6-1.3) mg/dl Est Cr Clr Drug Dosing 37.9 ml/min Est GFR ( Amer) 31.5 ml/min Est GFR (Non-Af Amer) 27.2 ml/min BUN/Creatinine Ratio 16.2 (10-20) Glucose 76 (70-99(Fasting)) mg/dl POC Glucose (70-99) mg/dl POC Glucose (other) (70-99) mg/dl Lactate Calcium 8.4 L (8.5-10.1) mg/dl POC Ioniz Calcium Mmeo (1.12-1.32) mmol/l Phosphorus (2.5-4.9) mg/dl Magnesium 1.8 (1.7-2.4) mg/dl Total Bilirubin 18.2 H (0.2-1.0) mg/dl Direct Bilirubin (0-0.2) mg/dl AST 76 H (13-39) U/L ALT 39 (7-52) U/L Alkaline Phosphatase 69 (34-104) U/L Ammonia Troponin I High Sens (0-14) pg/ml Total Protein 5.2 L (6.0-8.3) gm/dl Albumin 2.0 L (3.4-5.0) gm/dl Globulin 3.2 (2.5-4.0) gm/dl Albumin/Globulin Ratio 0.6 L (0.9-2) Procalcitonin (0-0.5) ng/ml Random Cortisol mcg/dl Fluid Neutrophils % % Fluid Lymphocytes % % Fluid Meso/Macro/[place]age % % Fluid Comment Peritoneal Color Peritoneal Appearance Peritoneal WBC (0-300) /ul Peritoneal RBC /uL Peritoneal Tot Protein gm/dl Peritoneal Albumin Nasal Screen MRSA (PCR) (Negative) SARS-CoV-2, RNA, NAAT (NEGATIVE) Bld Cult ID Panel PCR (NotDetected) Blood Type Antibody Screen Crossmatch Diagnostic Findings CXR 04/09: FINDINGS: There are low lung volumes. No pneumothorax. The heart is mildly enlarged. There is diffuse interstitial/vascular thickening consistent with mild pulmonary edema. There is a small right pleural effusion. Right basilar densities are noted. IMPRESSION: 1. Cardiomegaly with mild interstitial pulmonary edema and a small right pleural effusion. 2. Right basilar densities are nonspecific but favor atelectasis from the pleural effusion. A pneumonia could also have a similar appearance. CT A&P 07/13 FINDINGS: Interval development of a moderate right pleural effusion. A few prominent right cardiophrenic lymph nodes remain unchanged. Right lower lobe basilar densities favor atelectasis from the pleural effusion. The left lung base is clear. No pneumoperitoneum. No pneumatosis. No fractures within the visualized osseous structures. Skin thickening and severe body wall edema has progressed. The heart is normal in size. Redemonstration of the cirrhotic liver and splenomegaly. Prior cholecystectomy. The unenhanced pancreas and adrenal glands are unremarkable. No renal or ureteral stones. No hydronephrosis. Large upper abdominal varicosities persists. There are additional markers adjacent to the pancreatic tail. Redemonstration of the 6 cm heterogeneous lobular focus within/adjacent to the pancreatic tail. This is better appreciated on the prior CT examination. Normal caliber abdominal aorta. The bladder is decompressed by the ascites. There is a moderate amount of ascites, unchanged. The uterus and adnexa are unremarkable. Suboptimal evaluation for bowel pathology due to the lack of intravenous and oral contrast. No dilated loops of bowel to suggest an obstruction. The small bowel is normal in course and caliber. Mild submucosal edema/thickening within the ascending colon, transverse colon, and descending colon. This could represent a portal colopathy given the associated cirrhosis or a nonspecific colitis. A few colonic diverticula. No evidence for acute diverticulitis. IMPRESSION: 1. Interval progression of the severe body wall edema/anasarca. 2. Interval development of a moderate right pleural effusion. 3. Moderate ascites persists. 4. No evidence for bowel obstruction. 5. Cirrhosis with splenomegaly and multiple upper abdominal varicosities. 6. Mild submucosal edema/thickening within the ascending colon, transverse colon, and descending colon. This could represent a portal colopathy given the associated cirrhosis or a nonspecific colitis.
--- NOTE | 2022-04-10 07:46 | XRay Report ---
SINGLE VIEW CHEST CLINICAL HISTORY: Central venous catheter placement. FINDINGS: 2 AP, portable, upright chest radiographs are compared to study performed earlier the same day 04/09/2022. Correlation is made with chest CT dated 02/12/2022. The examination is degraded by port able technique and patient rotation. A left subclavian central venous catheter has been placed. The tip projects over the right atrium. The heart is enlarged noting atherosclerotic calcification of the thoracic aorta. There is pulmonary vascular congestion. Bilateral airspace opacities likely represen t pulmonary edema. There are right larger than left pleural effusions with bibasilar atelectasis. No pneumothorax is seen. The skeletal structures are osteopenic. The bony thorax is grossly intact. Chol ecystectomy clips are noted in the right upper quadrant. IMPRESSION: 1. A left subclavian central venous catheter has been placed as above. No pneumothorax is seen post p rocedure. 2. Cardiomegaly with evidence of congestive failure. 3. Bilateral airspace opacities likely represent pulmonary edema. Correlate clinically for evidence o f a superimposed infectious/inflammatory pneumonitis. 4. Right larger than left pleural effusions. ACT 112: Negative or not required by law. Electronically signed by: Rajiv Dahl M.D. 04/10/2022 7:45 AM
--- NOTE | 2022-04-10 08:14 | Billing Data ---
Date of Service April 09, 2022 Coding Level of Care Code 60754 Initial Inpt Care Lvl 3
--- NOTE | 2022-04-10 08:18 | Critical Care Progress Note ---
Date of Service April 10, 2022 Assessment & Plan (1) Acute respiratory failure with hypoxia: Plan: Impression: Unfortunate 62-year-old female with history of pancreatic cancer and liver cirrhosis presenting to the hospital for acute respiratory failure and worsening anemia secondary to upper GI bleed currently on multiple pressors without much response. Patient requires transfer to a tertiary care facility for interventional radiology, but is not currently stable to be transported via ambulance or air. Plan: Neuro: no current neurological issues, patient is alert and oriented x3 however is somnolent Respiratory: Acute hypoxemic respiratory failure -Currently on oxygen mask with saturations at the low 90s upper 80s -Patient does not wish to be intubated any longer and understands this may be end-of-life -Mild pulmonary edema with moderate right pleural effusion likely secondary to cirrhosis, with hold on diuresis in the setting of hypotension resistant to pressors -Respiratory acidosis with arterial pH of 7.2 Cardiovascular: Hypotension -Currently on Levophed, epi, and vasopressin and barely meeting mean arterial pressure of 65. Patient would likely decompensate rather quickly without the use of pressors at this time Elevated troponin -Secondary to demand ischemia in the setting of hypotension and anemia -Continue to utilize pressors to attempt to improve pressure Renal/electrolytes: SACHA -Secondary to poor perfusion from low blood pressure -Continue pressors as above Hyperkalemia -Mild at 5.5, due to low blood sugar would be cautious to give insulin currently even with dextrose infusion concurrently due to low blood sugar, continue to monitor for now. We will recheck BMP later today. GI: Liver cirrhosis secondary to nonalcoholic steatohepatitis -Ideally patient needs to be transferred to tertiary center for EGD due to high risk for bleeding given multiple comorbidities -Unable to be transferred currently, GI consulted here and will continue to follow, appreciate recommendations -Continue Protonix drip and octreotide -Continue Zosyn Endocrine: Type 2 diabetes mellitus -ICU hyperglycemic protocol, blood sugars have actually been quite low in the ICU Infectious disease: Continue coverage with Zosyn Heme-Onc: Pancreatic carcinoma -Primary team consulted heme-onc, appreciate recommendations Blood loss anemia -Secondary to variceal bleed noted on CT -Hemoglobin of 9.1 this morning after receiving 2 units of packed red blood cells -Again needs transfer to tertiary care facility for EGD but not stable for transport at this time -Continue octreotide as above -Recheck H&H in the afternoon DVT prophylaxis contraindicated in the setting of bleeding Leukopenia -Chronic, continue to trend Thrombocytopenia -Platelets at baseline with an elevated INR, patient given vitamin K DVT prophylaxis: Contraindicated Diet: N.p.o. CODE STATUS: DNR/DNI (2) Anasarca: (3) Portal vein thrombosis: (4) Elevated troponin: (5) Leukopenia: (6) SACHA (acute kidney injury): (7) Hypotension: (8) Upper GI bleed: (9) Pancreatic cancer: (10) Diabetes mellitus, type 2: (11) Liver cirrhosis secondary to nonalcoholic steatohepatitis (JOHNSON): Admission and Anticipated Discharge Date Admission Date: April 09, 2022 Supervising Physician Co-Signing Physician Notes Dr. Underwood was resident physician during care of patient. I separately evaluated patient for dorsey portions of the history and the exam. I was present during the critical portion of medical decision making, and I discussed the case with the resident. I generally agree with the findings and plan. Gram-negative bacteremia, now with no urine output. Had extensive discussion with the patient's . We have opted to not intubate and change CODE STATUS to DNR/DNI. We are continuing current level of care which is requiring 3 vasoactive medications, broad-spectrum antibiotics. She is likely at end-of-life. He has contacted the son is waiting for callback. I would support transition to comfort measures and discontinuation of life-sustaining measures if he decides to pursue that option. Subjective Patient seen at bedside this morning. Overnight patient had central line placed in addition to having paracentesis performed. Patient is able to have small conversation with me albeit she seems lethargic. Patient continues to be on multiple pressors without much response to blood pressure. States that she is not in any pain at this time. Overall feels comfortable. No new complaints at this time. Review of Systems Review of Systems: All systems reviewed & are unremarkable except as noted in HPI & below Physical Exam Constitutional: + ill appearing, + lethargic and + edematous Eyes: Scleral icterus Neck: trachea midline Respiratory: normal respiratory effort Auscultation: + rhonchi and + bronchial breath sounds Cardiovascular: Rate/Rhythm: regular rate and regular rhythm Extremities: + edema Gastrointestinal (Abdomen): Inspection/Auscultation: + abnormal bowel sounds (Hypoactive) Percussion/Palpation: abdomen soft; abdomen nontender Hepatomegaly Musculoskeletal: Head/Neck/Chest: normocephalic and head atraumatic Skin: Generalized jaundice Neurologic: awake Psychiatric: Orientation: oriented x 3 Lymphatic: no cervical lymphadenopathy Results & Data Results & Data ([facility]) Vital Signs (Past 12 Hours) Vital Signs Temp Pulse Pulse Resp BP BP Pulse Ox 04/10/22 05:47 109 H 32 H 91 04/10/22 05:45 109 H 31 H 04/10/22 05:41 80/50 L 04/10/22 05:41 111 H 31 H 04/10/22 05:36 75/63 L 04/10/22 05:36 111 H 31 H 04/10/22 05:31 110 H 31 H 90 04/10/22 05:30 111 H 32 H 90 04/10/22 05:26 111 H 33 H 91 04/10/22 05:21 110 H 32 H 91 04/10/22 05:21 50/33 L 04/10/22 05:15 112 H 33 H 93 04/10/22 05:06 112 H 31 H 90 04/10/22 05:01 78/63 L 04/10/22 05:01 113 H 31 H 04/10/22 05:00 113 H 30 H 90 04/10/22 04:56 58/42 L 04/10/22 04:56 113 H 32 H 04/10/22 04:51 97/67 L 04/10/22 04:51 113 H 31 H 04/10/22 04:45 113 H 30 H 90 04/10/22 04:41 73/50 L 04/10/22 04:41 114 H 31 H 90 04/10/22 04:36 114 H 30 H 04/10/22 04:36 62/40 L 04/10/22 04:32 114 H 31 H 04/10/22 04:32 94/49 L 04/10/22 04:30 114 H 28 H 90 04/10/22 04:26 74/62 L 04/10/22 04:26 115 H 30 H 04/10/22 04:24 107/51 L 04/10/22 04:24 114 H 31 H 04/10/22 04:15 114 H 32 H 93 04/10/22 04:00 115 H 30 H 90 04/10/22 03:46 76/60 L 07/14/22 03:46 115 H 31 H 04/10/22 03:45 115 H 30 H 90 04/10/22 04:00 37.2 C 04/10/22 03:30 114 H 34 H 04/10/22 03:17 106/65 04/10/22 03:17 115 H 27 H 93 04/10/22 03:15 114 H 35 H 91 04/10/22 03:00 114 H 27 H 90 04/10/22 02:46 117 H 29 H 91 04/10/22 02:45 117 H 28 H 91 04/10/22 02:36 113/49 L 04/10/22 02:36 116 H 30 H 90 04/10/22 02:30 117 H 30 H 04/10/22 02:16 115/46 L 04/10/22 02:16 116 H 29 H 92 04/10/22 02:15 118 H 28 H 92 04/10/22 02:02 116 H 29 H 90 04/10/22 02:00 116 H 28 H 91 04/10/22 01:54 86/55 L 04/10/22 01:54 117 H 26 H 91 04/10/22 01:51 73/51 L 04/10/22 01:51 117 H 31 H 90 04/10/22 01:45 117 H 31 H 91 04/10/22 01:45 75/48 L 04/10/22 01:42 94/56 L 04/10/22 01:42 115 H 30 H 04/10/22 01:30 109 H 35 H 93 04/10/22 01:15 115 H 34 H 93 04/10/22 01:01 115 H 28 H 95 04/10/22 01:00 115 H 29 H 95 04/10/22 00:46 115 H 31 H 94 04/10/22 00:46 63/38 L 04/10/22 00:45 114 H 28 H 93 04/10/22 00:38 115 H 31 H 88 L 04/10/22 00:38 81/34 L 04/10/22 00:30 113 H 28 H 04/10/22 00:26 114 H 33 H 94 04/10/22 00:23 114 H 31 H 92 04/10/22 00:20 113 H 29 H 96 04/10/22 00:16 113 H 25 H 95 04/10/22 00:16 84/57 L 04/10/22 00:15 113 H 30 H 98 04/10/22 00:08 120/63 04/10/22 00:08 113 H 28 H 04/10/22 02:00 37.2 C 04/09/22 23:00 04/09/22 23:01 114 H 04/09/22 23:00 37.5 C 04/10/22 00:00 113 H 30 H 97 04/09/22 23:54 113 H 26 H 93 04/09/22 23:54 87/51 L 04/09/22 23:45 113 H 27 H 93 04/09/22 23:30 113 H 28 H 93 04/09/22 23:16 113 H 28 H 94 04/09/22 23:16 103/48 L 04/09/22 23:15 114 H 33 H 95 04/09/22 22:56 77/48 L 04/09/22 22:56 115 H 17 04/09/22 22:39 117 H 22 91 04/09/22 22:39 69/44 L 04/09/22 22:30 116 H 21 91 04/09/22 22:30 76/58 L 04/09/22 23:51 37.5 C 112 H 24 87/51 L 97 04/09/22 23:21 37.1 C 117 H 22 77/50 L 92 04/09/22 23:10 114 H 24 92/36 L 92 04/09/22 23:00 20 92/36 L 92 04/09/22 22:15 115 H 22 77/50 L 92 04/09/22 22:00 115 H 26 H 79/47 L 92 04/09/22 21:48 37.1 C 117 H 24 82/58 L 92 04/09/22 21:46 24 93 04/09/22 21:30 116 H 24 100/40 L 93 04/09/22 21:10 37.1 C 117 H 24 99/58 L 93 04/09/22 21:07 37.1 C 119 H 24 99/58 L 93 04/09/22 21:03 37.1 C 118 H 24 99/58 L 93 04/09/22 20:55 37.8 C H 118 H 24 100/71 94 04/09/22 20:35 37.8 C H 120 H 24 97/81 L 94 04/09/22 20:19 120 H 24 82/68 L 94 04/09/22 20:09 24 94 04/09/22 20:05 37.9 C H 117 H 22 95/67 L 94 O2 Del Method O2 Flow Rate 04/10/22 05:47 04/10/22 05:45 04/10/22 05:41 04/10/22 05:41 04/10/22 05:36 04/10/22 05:36 04/10/22 05:31 04/10/22 05:30 04/10/22 05:26 04/10/22 05:21 04/10/22 05:21 04/10/22 05:15 04/10/22 05:06 04/10/22 05:01 04/10/22 05:01 04/10/22 05:00 04/10/22 04:56 04/10/22 04:56 04/10/22 04:51 04/10/22 04:51 04/10/22 04:45 04/10/22 04:41 04/10/22 04:41 4 04/10/22 04:36 04/10/22 04:36 04/10/22 04:32 04/10/22 04:32 04/10/22 04:30 04/10/22 04:26 04/10/22 04:26 04/10/22 04:24 04/10/22 04:24 04/10/22 04:15 04/10/22 04:00 04/10/22 03:46 04/10/22 03:46 04/10/22 03:45 04/10/22 04:00 04/10/22 03:30 04/10/22 03:17 04/10/22 03:17 04/10/22 03:15 04/10/22 03:00 04/10/22 02:46 04/10/22 02:45 04/10/22 02:36 04/10/22 02:36 04/10/22 02:30 04/10/22 02:16 04/10/22 02:16 04/10/22 02:15 04/10/22 02:02 04/10/22 02:00 04/10/22 01:54 04/10/22 01:54 04/10/22 01:51 04/10/22 01:51 04/10/22 01:45 04/10/22 01:45 04/10/22 01:42 04/10/22 01:42 04/10/22 01:30 04/10/22 01:15 04/10/22 01:01 04/10/22 01:00 Nasal Cannula 6 04/10/22 00:46 04/10/22 00:46 04/10/22 00:45 04/10/22 00:38 Nasal Cannula 4 04/10/22 00:38 04/10/22 00:30 04/10/22 00:26 04/10/22 00:23 04/10/22 00:20 04/10/22 00:16 04/10/22 00:16 04/10/22 00:15 04/10/22 00:08 04/10/22 00:08 04/10/22 02:00 04/09/22 23:00 Nasal Cannula 4 04/09/22 23:01 04/09/22 23:00 04/10/22 00:00 04/09/22 23:54 04/09/22 23:54 04/09/22 23:45 04/09/22 23:30 04/09/22 23:16 04/09/22 23:16 04/09/22 23:15 04/09/22 22:56 04/09/22 22:56 04/09/22 22:39 04/09/22 22:39 04/09/22 22:30 04/09/22 22:30 04/09/22 23:51 4 04/09/22 23:21 Nasal Cannula 4 04/09/22 23:10 04/09/22 23:00 Nasal Cannula 5 04/09/22 22:15 Nasal Cannula 4 04/09/22 22:00 Nasal Cannula 4 04/09/22 21:48 Nasal Cannula 4 04/09/22 21:46 Nasal Cannula 4 04/09/22 21:30 Nasal Cannula 4 04/09/22 21:10 4 04/09/22 21:07 04/09/22 21:03 Nasal Cannula 4 04/09/22 20:55 4 04/09/22 20:35 4 04/09/22 20:19 Nasal Cannula 4 04/09/22 20:09 Nasal Cannula 4 04/09/22 20:05 4
[2022-04-10 08:59] VITALS: BP 80/65; TEMP 99.1
[2022-04-10] MEDS ORDERED: VANCOMYCIN CONSULT ACTIVE PRN (09:46)
[2022-04-10 09:58] LABS: Base Excess VBG -17.9 mEq/L; HCO3 VBG 14 mmol/L; Oxygen Saturation VBG 69.9 %; PCO2 VBG 60 mmHg (38-50); PO2 VBG 47 mmHg; pH VBG < 7.00 (7.36-7.41)
[2022-04-10] MEDS ORDERED: PIPERACILLIN/TAZOBACTAM 4.5 GM in DEXTROSE 5% 100 ML IV SCH (10:00)
[2022-04-10] MEDS ORDERED: CASPOFUNGIN 70 MG in SODIUM CHLORIDE 0.9% 250 ML IV ONE (10:00)
[2022-04-10] MEDS ORDERED: MEROPENEM 500 MG in SYRINGE 0 ML IV SCH (10:00)
[2022-04-10] MEDS ORDERED: HYDROCORTISONE SOD 100 MG in SYRINGE 0 ML IV SCH (10:00)
[2022-04-10] MEDS ORDERED: VANCOMYCIN HCL 2,000 MG in SODIUM CHLORIDE 0.9% 500 ML IV ONE (10:00)
--- NOTE | 2022-04-10 10:36 | Pharmacy Report ---
Pharmacy PK ABX Note - Date of Service April 10, 2022 - Assessment and Plan Assessment 62 year old F receiving IV vancomycin, meropenem and caspofungin empirically in the setting of sepsis. Patient critically ill with end stage pancreatic cancer and hepatic cirrhosis, acute variceal bleeding and anasarca, requiring transport to [facility] for IR (currently unstable for transport). Currently requiring significant pressor support and steroids in setting of refractory h ypotension (norepinephrine, vasopressin, and epinephrine). Blood cultures (+) GNB in 2/4 (aerobic bottles). Biofire is negative. Renal function is unstable (SCr 1.91 -->2.31); baseline ~0.7mg/dL, and no UOP. Day # 1 of antimicrobial therapy. Plan Vancomycin * AUC/MARIAN is the preferred PK/PD target and is associated with decreased risk of nephrotoxicity compared to traditional trough targets, however due to SACHA and end organ dysfunction (in addition to BMI >35kg/m2), plan to dose by levels. * Loading dose: 2000mg IV X 1 * Random level ordered for: 7/15 AM Pharmacy will continue to follow and will adjust dose/frequency as necessary. Thank you.
--- NOTE | 2022-04-10 11:05 | Communication Note ---
Date of Service: April 10, 2022 Patient began decompensating even with the amount of pressors that she was on. It was then decided with in the room that with this rapid cardiovascular compromise that it would be best to discontinue the pressors and put her on comfort measures. The Levophed, epi, vasopressin were discontinued and shortly thereafter the patient peacefully. A assessment was performed with Dr. Varghese, R1 present and time of determined to be 10:40. Please see note for further information.
--- NOTE | 2022-04-10 11:13 | Discharge Summary ---
Date of Service April 10, 2022 Admission HPI Per Admitting Provider Geneva Cruz is a 62yo female with PMHx significant for pancreatic adenocarcinoma (diagnosed in early 2021, started RTx with Dr. Denise in 01/2022), pulmonary nodule (8mm, per CT in 01/2022)JOHNSON, liver cirrhosis with ascites (had paracentesis last week with 5L fluid removed), thrombocytopenia, portal vein thrombosis (on Lovenox), T2DM (A1c 7.0 in 01/2022), and dyslipidemia who presented to [facility] ED on 04/09/2022 for worsening melanotic stools x 2-3 days as well as generalized weakness for 24 hours. Patient reports 4-5 loose melanotic stools over last several days and then says she cannot "stay on her feet" over last 24 hours due to significant generalized weakness/fatigue. Denies N/V or hematemesis. Also reports worsening generalized edema for 2 months, particularly over last 1- 2 weeks. She reportedly had a therapeutic paracentesis with extraction of 5L fluid last week but has nonetheless had progressive generalized edema affecting lower > upper extremities and abdomen. Denies fever/chills or abdominal pain. Of note the patient had an established history of cirrhosis 2/2 to JOHNSON and was on the liver transplant list before pancreatic mass was found on imaging. In the ED the patient was profoundly hypotensive down to 53/42, tachycardic in 110s-120s, and borderline febrile with T37.9C. Required 4L NC. Labs significant for Hgb 8.4 (down from 10.9 several days ago, baseline 11s), WBC 1.97 (baseline 2-3 since starting RTx), plts 50 (chronic baseline). Procalcitonin 4.18. INR 2.3/PT 23.9/PTT 51.3 (all progressively increasing throughout this year). Na 126 (baseline mid 130s), HCO3 14, AG 19. BUN 31/Cr 1.91 (normal baseline). TBili 18.2 (gradually increasing x several years), Albumin 2.0. CXR with mild interstitial pulmonary edema, small right pleural effusion, and right basilar densities. CT A/P showing progression of severe body wall edema/anasarca in comparison to 01/2022, moderate right pleural effusion, moderate ascites, cirrhosis with splenomegaly and multiple upper abdominal varicosities, and generalized submucosal edema/thickening of colon. Patient was given Protonix 80mg IVP, D50 x2 for BSG low 50s, and Tylenol x1. We were paged for admission. Of note Dr. Salmeron ([facility]) recommends that the patient be transferred to a tertiary center for IR availability, as she is medically complex with high risk for complications and will likely need EGD and paracentesis. ER Provider contact [facility] and [facility] - unfortunately no availability currently, so the patient will be admitted here and is on wait lists for both hospitals. Admission Exam Per Admitting Provider General: A&Ox3. In mild respiratory distress. Appears fatigued and somnolent. Generalized jaundice. HEENT: Atraumatic, normocephalic. Pulm: Decreased breath sounds bilaterally with expiratory bibasilar crackles R>L. No wheezing. Symmetrical chest rise. Moderately increased work of breathing. Cardiac: RRR, -mrg. Radial pulses intact and symmetrical. Abdominal: soft, non-tender but distended with +fluid wave. Anasarca. LE: 3+ pitting edema throughout entire lower extremities - anasarca. Skin: spider angiomas present on shoulders and chest. Principal Diagnosis GI bleed Discharge Exam pupils fixed and non-responsive no pulse no respirations no heart sounds patient does not withdrawal from painful stimuli Discharge Data Allergies Allergy/AdvReac Type Severity Reaction Status Date / Time No Known Drug Allergies Allergy Unknown Verified 04/09/22 20:20 Consultations 04/09/22 18:58 ED Decision to Admit Stat 04/09/22 22:22 Consult Gastroenterology Routine 04/09/22 23:01 Consult Hematology Routine Consult Magazine Publisher Routine Ordered Studies 04/09/22 18:04 CT abd pelvis wo con Stat 04/09/22 22:09 sono, invasive monitoring [US point of care ultrasound] Urgent Hospital Course (1) Acute respiratory failure with hypoxia: Geneva Cruz is a 62 y/o female with PMHx significant for pancreatic adenocarcinoma (diagnosed in early 2021, started RTx with Dr. Denise in 01/2022), pulmonary nodule (8mm, per CT in 01/2022), liver cirrhosis 2/2 JOHNSON with ascites (had paracentesis last week with 5L fluid removed), thrombocytopenia, portal v ein thrombosis (on Lovenox), T2DM (A1c 7.0 in 01/2022), and dyslipidemia who presented to [facility] ED on 04/09/2022 for worsening melanotic stools x 2-3 days as well as generalized weakness for 24 hours. Patient reported 4-5 loose melanotic stools over the last several days with associated generalized weakness/fatigue. She denied any fevers, chills, abdominal pain, n/v/hematemesis. The patient also noted having worsening generalized edema for the last 2 months, worse over the last 1-2 weeks. She had a therapeutic paracentesis with extraction of 5L fluid last week but has nonetheless had progressive generalized edema affecting lower > upper extremities and abdomen. The patient was found to be hypotensive down to 53/42, tachycardic in 110s-120s, and borderline febrile with T37.9C. She was requiring 4L NC. Labs were down to 8.4 from 10.9 several days ago, WBC 1.97 (baseline 2-3 since starting radiation), plts 50 (baseline). Procalcitonin 4.18, INR - 2.3, PT - 23.9, PTT - 51.3, Na 126 (baseline mid 130s(, HCO3 14, AG, 19, BUN 31/Cr 1.91 (baseline). Tbili 18.2, albumin 2.0. Required 4L NC. Labs significant for Hgb 8.4 (down from 10.9 several days ago, baseline 11s), WBC 1.97 (baseline 2-3 since starting RTx), plts 50 (chronic baseline). Procalcitonin 4.18. INR 2.3/PT 23.9/PTT 51.3 (all progressively increasing throughout this year). Na 126 (baseline mid 130s), HCO3 14, AG 19. BUN 31/Cr 1.91 (normal baseline). TBili 18.2 (gradually increasing x several years), Albumin 2.0. CXR with mild interstitial pulmonary edema, small right pleural effusion, and right basilar densities. CT A/P showed progression of severe body wall edema/anasarca in comparison to 01/2022, moderate right pleural effusion, moderate ascites, cirrhosis with splenomegaly and multiple upper abdominal varicosities, and generalized submucosal edema/thickening of colon. The patient had blood loss anemia 2/2 a GI bleed that required 2 units of blood, 1 of platelets. The patient was put on protonix drip, octreotide and zosyn for GIB 2/2 cirrhosis due to JOHNSON. In the ED: Patient was given Protonix 80mg IVP, D50 x2 for BSG low 50s, and Tylenol x1. We were paged for admission. Of note Dr. Salmeron ([facility]) recommen ded that the patient be transferred to a tertiary center for IR availability, as she is medically complex with high risk for complications and will likely need EGD and paracentesis. ER Provider contact [facility] and [facility] and there was no availability. While waiting for an available bed the patient clinically declined and was put on 3 pressors. When a bed became available the patient was deemed too sick for transport via ambulance or air and thus she was admitted to our ICU. In the ICU: Patient was barely meeting MAPs of 65 on Levophed, epi, and vasopressin. Troponin was elevated due to demand ischemia likely in the setting of hypotension and anemia. The patient was full code upon admission, but after a discussion with the patient and the family, she decided that she did not want to be intubated and changed her code status to DNR/DNI. Patient was a&ox3, but somnolent. She experienced marked hypotension and respiratory failure. She was acidotic to 7.2 with O2s in the low 90s/upper 80s on oxygen mask. There was mild pulmonary edema and moderate right pleural effusion, but diuresis was held due to the hypotension. The patient had an SACHA likely prerenal in the setting of poo r perfusion. She also had mild hyperkalemia at 5.5 due to low blood sugar plan was to recheck BMP in the afternoon. The patient was found to have + blood cultures with gram negative bacilli. Biofire was negative. Likely an atypical bug. Antibiotic coverage was broadened. Patient had a history of T2DM and was put on the ICU hyperglycemic protocol. Patient had low blood sugars in the ICU. GI was consulted since she was unable to be transferred. Patient had pancreatic carcinoma so heme-onc was also consulted. DVT prophylaxis was contraindicated in the setting of bleeding. The patient was failing to meet MAPs that would sustain perfusion. Family decided to transition to comfort care. Pressors were stopped and the patient passed quickly. Time of was 10:40. (2) Anasarca: (3) Portal vein thrombosis: (4) Elevated troponin: (5) Leukopenia: (6) SACHA (acute kidney injury): (7) Hypotension: (8) Upper GI bleed: (9) Pancreatic cancer: (10) Diabetes mellitus, type 2: (11) Liver cirrhosis secondary to nonalcoholic steatohepatitis (JOHNSON): Total Time Total Time Spent Total Time Spent (In Minutes): See attending attestation Discharge Plan Discharge Items Patient Disposition: Other Date/Time: 04/10/22 10:40 Resident Activity Tracking Resident Involvement: Resident Care Provided Care Provided: Adult Hospital Medicine
--- NOTE | 2022-04-10 11:17 | Death Pronouncement Note ---
Date of Service April 10, 2022 Pronouncement Note Admission Date Admission Date: April 09, 2022 Date and Time of Date of : 04/10/22 Time of : 10:40 Contributing Factors (1) Acute respiratory failure with hypoxia: (2) Anasarca: (3) Portal vein thrombosis: (4) Elevated troponin: (5) Leukopenia: (6) SACHA (acute kidney injury): (7) Hypotension: (8) Upper GI bleed: (9) Pancreatic cancer: (10) Diabetes mellitus, type 2: (11) Liver cirrhosis secondary to nonalcoholic steatohepatitis (JOHNSON): Additional Data Confirmation of : no pulse, no respirations, no heart sounds and pupils fixed and dilated Family: at bedside Attending/PCP notified?: Yes Attending physician: Maria L Oconnor, DO Was code activated?: No Resident Activity Tracking Resident Involvement: Resident Care Provided Care Provided: Adult Hospital Medicine
[2022-04-10 11:33] VITALS: PULSE 61; O2SAT 94
--- NOTE | 2022-04-10 12:38 | Electrocardiogram Report ---
Test Reason : Blood Pressure : / mmHG Vent. Rate : 110 BPM Atrial Rate : 110 BPM P-R Int : 152 ms QRS Dur : 078 ms QT Int : 328 ms P-R-T Axes : 049 017 052 degrees QTc Int : 443 ms Poor data quality, interpretation may be adversely affected Sinus tachycardia Nonspecific T wave abnormality Abnormal ECG When compared with ECG of 12-FEB-2022 19:21, Premature atrial complexes are no longer Present Nonspecific T wave abnormality now evident in Lateral leads Confirmed by Wes Shah ([id number]) on 04/10/2022 12:37:41 PM Referred By: REFERRED SELF Confirmed By:Seun Shah
[2022-04-10] MEDS ORDERED: cefTRIAXone SODIUM 2,000 MG in DEXTROSE 5% 50 ML IV SCH (21:00)
== END 2022-04-10 14:23 | disposition expired | DRG 377 ==
LOC: ED 15:56 → SUATTDRO 22:10 → 1E 22:10